=== PATIENT | female | born 1945 | race Hispanic/Latino ===

== ENCOUNTER 2016-10-11 15:08 | Inpatient (IN) | payer MEDICARE, OTHER ==
[2016-10-11 15:57] LABS: BASO # 0.1 K/uL (0.0-0.2); BASO % 0.7 % (0.0-2.0); EOS # 0.1 K/uL (0.0-0.7); EOS % 0.6 % (0.0-4.0); LYMPH # 0.9 K/uL (1.0-4.3); LYMPH % 5.6 % (20.0-40.0); MEAN CELL VOLUME 77.5 fl (81.0-99.0); MEAN CORPUSCULAR HEMOGLOBIN 24.1 pg (27.0-31.0); MEAN CORPUSCULAR HGB CONC 31.1 g/dL (33.0-37.0); MEAN PLATELET VOLUME 8.6 fl (7.2-11.7); MONO # 1.4 K/uL (0.0-0.8); MONO % 9.2 % (0.0-10.0); NEUT # 12.9 K/uL (1.8-7.0); NEUT % 83.9 % (50.0-75.0); PLATELET COUNT 316 K/uL (130-400); RED CELL DISTRIBUTION WIDTH 22.8 % (11.5-14.5); WHITE BLOOD COUNT 15.4 K/uL (4.8-10.8)
[2016-10-11 15:57] LABS: VENOUS BLOOD GAS PCO2 48 mmHg (40-60); VENOUS BLOOD PH 7.36 (7.32-7.43)
[2016-10-11 16:08] LABS: ALB/GLOB RATIO 1.2 (1.0-2.1); ALKALINE PHOSPHATASE 86 U/L (38-126); ALT/SGPT 27 U/L (9-52); AST/SGOT 24 U/L (14-36); BILIRUBIN,TOTAL 0.7 mg/dl (0.2-1.3); BLOOD UREA NITROGEN 17 mg/dl (7-17); CALCIUM 9.4 mg/dL (8.4-10.2); CARBON DIOXIDE 23 mmol/L (22-30); CHLORIDE 104 mmol/L (98-107); GFR AFRICAN-AMERICAN 49; GLUCOSE,RANDOM 114 mg/dL (65-105); MAGNESIUM 1.7 MG/DL (1.6-2.3); PHOSPHOROUS 3.4 mg/dl (2.5-4.5); SODIUM 137 mmol/l (132-148); TOTAL PROTEIN 7.3 G/DL (6.3-8.2)
[2016-10-11 16:09] LABS: POTASSIUM 3.8 MMOL/L (3.6-5.0)
--- NOTE | 2016-10-11 16:10 | ED PDOC ---
HPI: Female Pain Time Seen by Provider: 10/11/16 15:29 Chief Complaint (Nursing): Female Genitourinary Chief Complaint (Provider): Female Genitourinary History Per: Patient History/Exam Limitations: no limitations Onset/Duration Of Symptoms: Days (x1) Current Symptoms Are (Timing): Still Present Additional Complaint(s): Olga Neff is a 71 year old female who presents to the emergency department for an evaluation of genital bleed after she noted blood on the toilet associated with fever, suprapubic pain, malaise, fatigue, dysuria, black stool, and constipation ongoing since yesterday. Denied any chills, frequency, rectal bleed, nausea, vomiting, diarrhea or taking medication for symptoms relief. PMD: rPaful Meyer MD Past Medical History Reviewed: Historical Data, Nursing Documentation, Vital Signs Vital Signs: Last Vital Signs Temp 101.5 F H 10/11/16 15:16 Pulse 108 H 10/11/16 15:16 Resp 16 10/11/16 15:16 BP 157/75 H 10/11/16 15:16 Pulse Ox 98 10/11/16 15:16 - Medical History PMH: Anemia, Anxiety, Arthritis, Atrial Fibrillation, Back Problems (chronic), CHF, HTN, Kidney Stones, Chronic Kidney Disease, Rheumatoid Arthritis Denies: Diabetes, Hepatitis, HIV, Seizures, Sexually Transmitted Disease Other PMH: glycoma; sciatica - Surgical History Surgical History: Cholecystectomy, Hernia Repair, Other surgeries: partial hysterectomy; cervial cancer - Family History Family History: States: Diabetes, Hypertension - Social History Current smoker - smoking cessation education provided: No Alcohol: None Drugs: Denies - Home Medications Home Medications: Ambulatory Orders Medication Instructions Recorded oxyCODONE [oxyCODONE Immediate 30 mg PO Q8H PRN 03/21/14 Release Tab] Alprazolam [Xanax] 0.5 mg PO Q8H 04/16/16 Calcium Carbonate/Vitamin D3 1 tab PO BID 04/16/16 [Oysco D Tablet] Citalopram Hydrobromide [Celexa] 10 mg PO DAILY 04/16/16 Edoxaban Tosylate [Savaysa] 60 mg PO DAILY 04/16/16 Latanoprost [Xalatan] 1 drop EACHEYE HS 04/16/16 Metoprolol Tartrate [Lopressor] 100 mg PO Q12H 04/16/16 Morphine Sulfate [Morphine Sulfate 30 mg PO Q12H 04/16/16 ER] Sulindac 200 mg PO BID 04/16/16 Timolol 0.5% Ophth [Timoptic 0.5% 1 drop EACHEYE BID 04/16/16 Ophth Soln] Torsemide [Demadex] 20 mg PO BID 04/16/16 tiZANidine [Zanaflex] 4 mg PO BID 04/16/16 - Allergies Allergies/Adverse Reactions: Allergies Allergy/AdvReac Type Severity Reaction Status Date / Time No Known Allergies Allergy Verified 11/03/13 12:57 Review of Systems ROS Statement: Except As Marked, All Systems Reviewed And Found Negative (and as per HPI) Constitutional: Positive for: Fever, Malaise, Other (fatigue). Negative for: Chills Gastrointestinal: Positive for: Abdominal Pain (suprapubic), Constipation ( chronic issue), Melena (due to iron pills). Negative for: Nausea, Vomiting, Diarrhea, Other (rectal bleed) Genitourinary Female: Positive for: Dysuria, Hematuria. Negative for: Frequency Physical Exam - Reviewed Nursing Documentation Reviewed: Yes Vital Signs Reviewed: Yes - Physical Exam Appears: Positive for: Non-toxic, Uncomfortable (due to back pain and fever), In Acute Distress Head Exam: Positive for: ATRAUMATIC, NORMOCEPHALIC Skin: Positive for: Warm, Dry Eye Exam: Positive for: EOMI, PERRL ENT: Negative for: Pharyngeal Erythema, Tonsillar Exudate Neck: Positive for: Painless ROM, Supple Cardiovascular/Chest: Positive for: Chest Non Tender, Edema ((reported as chronic)), Tachycardia, Irregularly Irregular. Negative for: Murmur Respiratory: Positive for: Normal Breath Sounds. Negative for: Wheezing, Respiratory Distress Gastrointestinal/Abdominal: Positive for: Soft, Tenderness (mild suprapubic). Negative for: Mass, Distended, Guarding, Rebound Pelvic Exam: Positive for: External Exam Normal, Other (Health Policy Manager EDT [place]). Negative for: Active Bleeding, Blood Back: Positive for: Other (low back stiffness). Negative for: L CVA Tenderness , R CVA Tenderness Extremity: Positive for: Pedal Edema. Negative for: Deformity Lymphatic: Negative for: Adenopathy Neurologic/Psych: Positive for: Alert - Laboratory Results Result Diagrams: 10/11/16 15:50 10/11/16 15:50 - ECG O2 Sat by Pulse Oximetry: 98 (RA) Pulse Ox Interpretation: Normal Medical Decision Making Medical Decision Making: Initial Impression: Fever; Possible hematuria Differential diagnosis: Sepsis; Coagulopathy; Anemia; UTI; Cystitis; Colitis Initial Plan: * Venous blood gas shock panel * EKG * B-type natriuretic peptide * Labs * Magnesium * Phosphorous * Troponin I * PTT * PT * CXR * Tylenol 975mg PO * Blood culture * Urine culture * Urinalysis * Re-evaluation Pt reporting that she is having back pain, which she typically treats with home opiate meds. IV Morphine ordered. Labs demonstrate elevated WBC, elevated bnp. UA c/w renal calculus and/or UTI. Time: 1848 CT Abdomen and Pelvis without contrast FINDINGS: LOWER THORAX: Lung bases demonstrate mild dependent bibasilar atelectasis. Heart size mildly enlarged. LIVER: Unremarkable unenhanced appearance. GALLBLADDER AND BILE DUCTS: Gallbladder is surgically absent with multiple surgical clips in the gallbladder fossa. PANCREAS: Unremarkable unenhanced appearance. SPLEEN: Unremarkable unenhanced appearance. ADRENALS: Unremarkable unenhanced appearance. KIDNEYS AND URETERS: Right kidney: Stable subcentimeter upper pole exophytic lobulated hypodensity containing calcifications. . There is no nephrolithiasis or hydronephrosis. Left kidney: No hydronephrosis identified. Multiple cysts noted. There is moderate perinephric stranding. There is dilatation of the collecting system and renal pelvis with hyperdense fluid that demonstrates attenuation of blood. The ureters are not dilated. BLADDER: Is incompletely distended. REPRODUCTIVE: Uterus appears surgically absent. APPENDIX: Unremarkable. Normal appendix. STOMACH AND BOWEL: Moderate hiatal hernia. There is no abnormal small of large bowel dilatation. There is moderate to severe sigmoid diverticulosis without evidence of diverticulitis. PERITONEUM: No pelvic free fluid is seen. LYMPH NODES: No significant abdominal or pelvic lymphadenopathy. VASCULATURE: Abdominal Aorta is normal in caliber. BONES: Stable sclerotic focus in the right iliac bone. Degenerative changes noted of the spine. increased sclerosis of the bilateral femoral heads suggestive of avascular necrosis. OTHER FINDINGS: Small foci of air noted in the subcutaneous soft tissues of the back, right greater than left. This may be due to medication injections, correlate clinically.. IMPRESSION: Hyperdense material in the left renal collecting system and pelvis with dilatation of the renal pelvis, that likely represents blood products. Correlate clinically with history of recent intervention. If no recent intervention, then consider neoplastic process. Clinical impression: Pyelonephritis with possible renal hemorrhage Atrial fibrillation, rate controlled LISSET Meyer for hospitalization [facility] LISSET pt findings and plan of care. She feels better s/p IV meds and Tylenol in ER. Scribe Attestation: Documented by Joanne Asher, acting as a scribe for Fely Manriquez MD. Provider Scribe Attestation: All medical record entries made by the Scribe were at my direction and personally dictated by me. I have reviewed the chart and agree that the record accurately reflects my personal performance of the history, physical exam, medical decision making, and the department course for this patient. I have also personally directed, reviewed, and agree with the discharge instructions and disposition. Disposition - Clinical Impression Clinical Impression: Pyelonephritis, A-fib Counseled Patient/Family Regarding: Studies Performed, Diagnosis - Disposition Disposition Time: 16:00 Condition: FAIR - Pt Status Changed To: Hospital Disposition Of: Inpatient - Admit Certification Admit to Inpatient:: After my assessment, the patient will require hospitalization for at least two midnights. This is because of the severity of symptoms shown, intensity of services needed, and/or the medical risk in this patient being treated as an outpatient. - POA Present On Arrival: Falls Or Trauma (at risk due to back pain)
[2016-10-11] MEDS ORDERED: Morphine 4 MG/ML VIAL ONE (17:01)
[2016-10-11 17:33] LABS: EOSINOPHIL 1 % (0-7); NEUTROPHIL 80 % (42-75); TOTAL CELLS COUNTED 100
[2016-10-11 17:56] LABS: PARTIAL THROMBOPLASTIN TIME 33.1 Seconds (25.6-37.1)
--- NOTE | 2016-10-11 18:51 | CT ---
PROCEDURE: CT Abdomen and Pelvis without contrast HISTORY: suprapub pain and genital bldng h/o renal stone COMPARISON: CT abdomen pelvis 12/03/2010 TECHNIQUE: CT scan of the abdomen and pelvis was performed without IV contrast. The absence of oral contrast limits evaluation of bowel lumen. The absence of intravenous contrast limits evaluation of solid organs including the kidneys as well as blood vessels and vascular structures. Coronal and sagittal reconstructions were also acquired. Radiation dose: Total exam DLP = 1087 mGy-cm. FINDINGS: LOWER THORAX: Lung bases demonstrate mild dependent bibasilar atelectasis. Heart size mildly enlarged. LIVER: Unremarkable unenhanced appearance. GALLBLADDER AND BILE DUCTS: Gallbladder is surgically absent with multiple surgical clips in the gallbladder fossa. PANCREAS: Unremarkable unenhanced appearance. SPLEEN: Unremarkable unenhanced appearance. ADRENALS: Unremarkable unenhanced appearance. KIDNEYS AND URETERS: Right kidney: Stable subcentimeter upper pole exophytic lobulated hypodensity containing calcifications. . There is no nephrolithiasis or hydronephrosis. Left kidney: No hydronephrosis identified. Multiple cysts noted. There is moderate perinephric stranding. There is dilatation of the collecting system and renal pelvis with hyperdense fluid that demonstrates attenuation of blood. The ureters are not dilated. BLADDER: Is incompletely distended. REPRODUCTIVE: Uterus appears surgically absent. APPENDIX: Unremarkable. Normal appendix. STOMACH AND BOWEL: Moderate hiatal hernia. There is no abnormal small of large bowel dilatation. There is moderate to severe sigmoid diverticulosis without evidence of diverticulitis. PERITONEUM: No pelvic free fluid is seen. LYMPH NODES: No significant abdominal or pelvic lymphadenopathy. VASCULATURE: Abdominal Aorta is normal in caliber. BONES: Stable sclerotic focus in the right iliac bone. Degenerative changes noted of the spine. increased sclerosis of the bilateral femoral heads suggestive of avascular necrosis. OTHER FINDINGS: Small foci of air noted in the subcutaneous soft tissues of the back, right greater than left. This may be due to medication injections, correlate clinically.. IMPRESSION: Hyperdense material in the left renal collecting system and pelvis with dilatation of the renal pelvis, that likely represents blood products. Correlate clinically with history of recent intervention. If no recent intervention, then consider neoplastic process. Additional findings as above.
[2016-10-11 18:56] LABS: RBC URINE 1074 /hpf (0-3); URINE BACTERIA OCC (<OCC); URINE BILIRUBIN NEGATIVE (NEGATIVE); URINE BLOOD LARGE (NEGATIVE); URINE COLOR AMBER (YELLOW); URINE GLUCOSE (UA) NEG (Normal); URINE KETONE NEGATIVE (NEGATIVE); URINE LEUKOCYTE ESTERASE SMALL Leu/uL (Negative); URINE PROTEIN 100 mg/dL (NEGATIVE); URINE UROBILINOGEN 0.2-1.0 mg/dL (0.2-1.0); WBC CLUMPS MOD /hpf; WBC URINE 50 /hpf (0-5)
[2016-10-11 19:34] LABS: VENOUS BLOOD GAS BASE EXCESS -3.1 mmol/L (0.0-2.0); VENOUS BLOOD GAS PCO2 39 mmHg (40-60); VENOUS BLOOD PH 7.36 (7.32-7.43)
[2016-10-11] MEDS ORDERED: cefTRIAXone (Rocephin) 1 gm Inj ONE (19:37)
--- NOTE | 2016-10-11 20:21 | RAD ---
HISTORY: fever COMPARISON: Chest x-ray 04/18/2016 TECHNIQUE: Chest one view . FINDINGS: LUNGS: See below PLEURA: Small left pleural effusion. Underlying consolidation not excluded. CARDIOVASCULAR: Stable cardiomegaly. OSSEOUS STRUCTURES: Visualized osseous structures are unremarkable. VISUALIZED UPPER ABDOMEN: Unremarkable. OTHER FINDINGS: None. IMPRESSION: Small left pleural effusion, underlying consolidation not excluded. Stable cardiomegaly.
--- NOTE | 2016-10-11 23:46 | PCM.RRTMUL ---
<Talha Bill - Last Filed: 10/12/16 01:29> PRINT INSPECTOR Nurse Assessment - Situation PRINT INSPECTOR Responder Arrival Time:: 23:10 Location:: 6th floor Room Number:: [id number] PRINT INSPECTOR Reason for Call: Hypotension PRINT INSPECTOR Called By: RN - IV IV Inserted during PRINT INSPECTOR?: Yes IV Fluids Initiated During PRINT INSPECTOR?: Yes, 1L NS New IV Insertion Tolerance:: Excellent - Respiratory Oxygen Delivery Method:: Room Air Received Nebulizer Treatments:: No Was the Patient Ventilated with Bag/Mask 100% O2?: No Secretions Suctioned?: No Was the Patient Intubated?: No Was the Patient Placed on a Ventilator?: No - Vital Signs Blood Pressure:: 118/83 Pulse Rate:: 92 Respiratory Rate:: 16 Temperature:: 98.6 F I.Reason for PRINT INSPECTOR - A) Acute Change in Patient: (Select all that apply): Acute change in SBP below (BP 68/50) Subjective: PRINT INSPECTOR was called at 11:08PM by RN after patient found to have BP of 74/42, HR 64. Upon arrival pt was hypotensive but AAOx3, and verbalizing in full sentences with out difficulty. As per patient, she just feels little "exhausted" and got her routine 8mg Morphine earlier. pt was started on IVF NS bolus and trendelenburg position. Bedside EKG was done, showed A-fib. Patient failed to respond to initial interventions. After 15 mins BP 80/50 and pt was transferred to ICU for further evaluations. --Talha Bill, PGY-1 - A) Initial Vital Signs: Blood Pressure: 68/44 Pulse Rate: 64 Respiratory Rate: 20 Temperature: 97.7 F O2 Sat by Pulse Oximetry: 99 - B) Neurological Status (Select all that apply): Alert, Responsive, Oriented, Verbal, Follows Commands - C) Respiratory Oxygen Delivery Method: Room Air - Constitutional Appears: Well - Head Head Exam: ATRAUMATIC, NORMAL INSPECTION, NORMOCEPHALIC - Eyes Eye Exam: Normal appearance - Respiratory Exam Respiratory Exam: Clear to Ausculation Bilateral. absent: Accessory Muscle Use , Chest Wall Tenderness, Decreased Breath Sounds, Wheezes - Cardiovascular Exam Cardiovascular Exam: Irregular Rhythm - GI/Abdominal Exam GI & Abdominal Exam: Normal Bowel Sounds - Neurological Exam Neurological Exam: Alert, Awake, Oriented x3 - Extremities Exam Extremities Exam: Pedal Edema Plan - A. End of PRINT INSPECTOR Vital Signs: Blood Pressure: 80/50 Pulse Rate: 70 Respiratory Rate: 20 Temperature: 97.7 F O2 Sat by Pulse Oximetry: 99 <Cosme Bernard - Last Filed: 10/12/16 02:05> Attending/Attestation - Attestation I have personally seen and examined this patient.: No I have fully participated in the care of the patient.: No I have reviewed all pertinent clinical information, including history, physical exam and plan: No Notes (Text): 10/12/16 01:55 I saw and examined this patient Shoulder to shoulder with Dr Bill. The assessment and plan outlined represent my direct input. The patient's was having her regular vital signs taken and found to have a Blood pressure of 54/37mmHg. She had received Intravenous Morphine 8mg while in the ED for pain. A&P #. Hypotension Induced by the Opiates in patient being treated for Pyelonephritis - Patient placed in Trendelinburgh and IV Normal Saline bolus started. - Transfer patient to ICU for close monitoring because of slow response to the IV Fluids. Cosme Bernard MD
[2016-10-12] MEDS ORDERED: Sodium Chloride 0.9% 1,000 ML IV SCH ×3 (00:30→06:11)
--- NOTE | 2016-10-12 01:30 | CP.PCM.CON ---
History of Present Illness - History of Present Illness History of Present Illness: Attending: Praful Meyer MD Reason for Consult; Critical care Management Chief complaint: Lower abdominal Pain with clots/Hypotension HPI: 71 years old female with hx of chronic A Fib, Chronic back Pain, Cervical Cancer, Kidney stone and with Partial Hysterectomy, comes to the ED with genitalia bleed, noticing blood in the toilet after use. This was associated with fever, malaise, Fatigue, dysuria, suprapubic pain and Black stool for 2 days. No nausea, vomiting ,diarrhea, nor urinary frequency. In the ED the temperature was 101.5F and Heart rate [id number] with a blood pressure of 157/ 75mmHg. The patient was given Morphine 8mg IV for her pain. Rapid response was called while the patient was on the Med/Surge floor because of an incidental finding of blood pressure of 55/37mmHg. One Bolus of Normal saline started and because of slow response the patient transferred to the ICU for Close monitoring. PMH: Anemia, Anxiety, Arthritis, Chronic Atrial Fibrillation, Back Problems ( chronic),Sciatica, CHF, HTN, Kidney Stones, Chronic Kidney Disease, Rheumatoid Arthritis, Glaucoma, Cervical Cancer PSH: Cholecystectomy, Hernia Repair, , partial hysterectomy; SH: No Smoking; No Alcohol; No Drugs FH: DM: HTN Allergies: NKDA - Review of Systems - Constitutional Constitutional: Fever, Malaise. absent: Headache - EENT Eyes: Requires Corrective Lenses. absent: Diplopia, Floaters, Photophobia, Sees Flashes Ears: absent: Decreased Hearing, Ear Discharge, Ear Pain, Tinnitus Nose/Mouth/Throat: absent: Epistaxis, Nasal Congestion, Sore Throat - Cardiovascular Cardiovascular: Leg Edema. absent: Chest Pain - Respiratory Respiratory: absent: Cough, Wheezing, Stridor, Chest Congestion - Gastrointestinal Gastrointestinal: Abdominal Pain, Melena, Nausea. absent: Vomiting - Genitourinary Genitourinary: Hematuria, Urinary Frequency. absent: Dysuria - Menstruation Menstruation: S/P Hysterectomy - Musculoskeletal Musculoskeletal: Back Pain, Stiffness - Integumentary Integumentary: Swelling. absent: Pruritus, Rash, Skin Ulcer, Sores, Striae - Neurological Neurological: absent: Confusion, Focal Weakness, Tremor, Weakness - Psychiatric Psychiatric: absent: Anxiety, Depression, Panic Attacks - Endocrine Endocrine: absent: Palpitations, Polydipsia, Polyphagia, Polyuria - Hematologic/Lymphatic Hematologic: absent: Easy Bleeding, Easy Bruising Past Patient History - Infectious Disease Hx of Infectious Diseases: None - Past Medical History & Family History Past Medical History?: Yes - Past Social History Smoking Status: Never Smoked Chewing Tobacco Use: No Cigar Use: No Alcohol: None Drugs: Denies Home Situation {Lives}: With Family - CARDIAC Hx Atrial Fibrillation: Yes Hx Congestive Heart Failure: Yes Hx Hypertension: Yes - PULMONARY Hx Respiratory Disorders: No Hx Tuberculosis: No - NEUROLOGICAL Hx Seizures: No - HEENT Hx HEENT Problems: Yes Hx Glaucoma: Yes - RENAL Hx Chronic Kidney Disease: Yes Hx Kidney Stones: Yes - ENDOCRINE/METABOLIC Hx Endocrine Disorders: No - HEMATOLOGICAL/ONCOLOGICAL Hx Anemia: Yes Hx Human Immunodeficiency Virus (HIV): No - INTEGUMENTARY Hx Dermatological Problems: No - MUSCULOSKELETAL/RHEUMATOLOGICAL Hx Arthritis: Yes Hx Back Pain: Yes Hx Rheumatoid Arthritis: Yes - GASTROINTESTINAL Hx Gastrointestinal Disorders: Yes Hx Ulcer: Yes - GENITOURINARY/GYNECOLOGICAL Hx Sexually Transmitted Disorders: No - PSYCHIATRIC Hx Anxiety: Yes - SURGICAL HISTORY Hx Section: Yes Hx Cholecystectomy: Yes Hx Herniorrhaphy: Yes Hx Hysterectomy: Yes (Patial) - ANESTHESIA Hx Anesthesia: Yes Hx Anesthesia Reactions: No Hx Malignant Hyperthermia: No Has any member of the family had a problem w/ anesthesia?: No Meds Allergies/Adverse Reactions: Allergies Allergy/AdvReac Type Severity Reaction Status Date / Time No Known Allergies Allergy Verified 11/03/13 12:57 - Medications Medications: Current Medications Acetaminophen (Tylenol 325mg Tab) 975 mg PO ONCE PRN PRN Reason: Fever >100.4 F Citalopram Hydrobromide (Celexa) 10 mg PO DAILY [facility] Sodium Chloride (Sodium Chloride 0.9%) 1,000 mls @ 150 mls/hr IV .Q6H40M [facility] Stop: 10/13/16 00:21 Last Admin: 10/12/16 00:28 Dose: 150 mls/hr Latanoprost (Xalatan Opht) 1 drop OD HS [facility] Metoprolol Tartrate (Lopressor) 100 mg PO Q12H [facility] Timolol Maleate (Timoptic 0.5% Ophth Soln) 1 drop OD BID [facility] Physical Exam - Constitutional Appears: No Acute Distress - Head Exam Head Exam: ATRAUMATIC, NORMAL INSPECTION, NORMOCEPHALIC - Eye Exam Eye Exam: EOMI, Normal appearance Pupil Exam: Fixed, Irregular, NORMAL ACCOMODATION, PERRL - ENT Exam ENT Exam: Mucous Membranes Moist, Normal Exam, Normal External Ear Exam, Normal Oropharynx - Neck Exam Neck exam: Positive for: Full Rom, Normal Inspection. Negative for: Tenderness - Respiratory Exam Respiratory Exam: Clear to Auscultation Bilateral. absent: Rales, Rhonchi, Wheezes - Cardiovascular Exam Cardiovascular Exam: Irregular Rhythm, +S1, +S2. absent: Gallop - GI/Abdominal Exam Additional comments: Obese, Soft, +ve bowel sounds, Non tender , no guarding, No rebound tenderness - Rectal Exam Rectal Exam: Deferred - Extremities Exam Extremities exam: Positive for: pedal edema - Back Exam Back exam: NORMAL INSPECTION. absent: CVA tenderness (L), CVA tenderness (R) - Neurological Exam Neurological exam: Alert, CN II-XII Intact, Oriented x3, Reflexes Normal - Psychiatric Exam Psychiatric exam: Normal Affect, Normal Mood - Skin Skin Exam: Dry, Intact, Normal Color, Warm Results - Vital Signs Recent Vital Signs: Last Vital Signs Temp 97.7 F 10/12/16 01:28 Pulse 70 10/12/16 01:28 Resp 20 10/12/16 01:28 BP 80/50 L 10/12/16 01:28 Pulse Ox 95 10/12/16 01:00 - Labs Result Diagrams: 10/12/16 04:20 10/12/16 04:20 Labs: Laboratory Results - last 24 hr 10/11/16 10/11/16 10/11/16 17:00 18:26 19:29 PT 14.0 H INR 1.4 H APTT 33.1 pO2 48 VBG pH 7.36 VBG pCO2 39 L VBG HCO3 22.1 VBG Total CO2 23.2 VBG O2 Sat (Calc) 84.3 H VBG Base Excess -3.1 L VBG Potassium 3.5 L Sodium 135.0 Chloride 106.0 Glucose 96 Lactate 0.9 FiO2 21.0 Venous Blood Potassium 3.5 L Urine Color Evelia Urine Clarity Turbid Urine pH 5.0 Ur Specific Noble 1.025 Urine Protein 100 Urine Glucose (UA) Neg Urine Ketones Negative Urine Blood Large Urine Nitrate Negative Urine Bilirubin Negative Urine Urobilinogen 0.2-1.0 Ur Leukocyte Esterase Small Urine RBC (Auto) 1074 H Urine WBC Clumps (Auto) Mod H Urine Microscopic WBC 50 H Ur Squamous Epith Cells 3 Urine Bacteria Occ H - EKG Data EKG comments: A Fib with rapid response 104.min - Imaging and Cardiology Chest x-ray Status: Image reviewed by me, Report reviewed by me Additional comment: Cardiomegaly. Small left pleural effusion, underlying consolidation not excluded. CT scan - abdomen Status: Report reviewed by me Additional comment: IMPRESSION: Hyperdense material in the left renal collecting system and pelvis with dilatation of the renal pelvis, that likely represents blood products. Correlate clinically with history of recent intervention. If no recent intervention, then consider neoplastic process. Assessment & Plan - Assessment and Plan (Free Text) Assessment: # Hypotension #. SIRS #.Chronic A Fib #. Chronic CHF #. Hx of Cervical Ca Plan: 1 years old female with hx of chronic A Fib, Chronic back Pain, Cervical Cancer , Kidney stone and with Partial Hysterectomy, comes to the ED with genitalia bleed, noticing blood in the toilet after use. This was associated with fever, malaise, Fatigue, dysuria, suprapubic pain and Black stool for 2 days. In the ED patient was given Morphine 8mg IV for her pain. Rapid response was called while the patient was on the Med/Surge floor because of an incidental finding of blood pressure of 55/37mmHg. One Bolus of Normal saline started and because of slow response the patient transferred to the ICU for Close monitoring. # Hypotension secondary to the opiates that the patient received in the ED -Continue IV Fluids. educe to 100mls/hr - Patient may need pressor if BP falls despite IV Fluids #. Genitalia bleed probably from the left kidney, Patient on Edaxaban which could cause bleeding - Hold Edaxaban - Follow Hb - If Hb drops significantly indicating severe bleed, pte may need Factor 4 PCC - Will need consult with Urology #. SIRS. Temperature of 101.5 and HR of 108 and a WBC of 15.5: - ID Consult - follow Blood Culture and /urine Cultures - Continue Zosyn #.Chronic A Fib rate controlled -Consider Cardiac consult - Continue metoprolol - Hold Edaxaban #. Chronic CHF - Metoprolol - Hold Demadex #. Hx of Cervical Ca - Not on treatment #. DVT Prophylaxis with SCD #. Code Status: Full - Date & Time Date: 10/12/16 Time: 01:30
[2016-10-12] MEDS ORDERED: oxyCODONE 10 mg Immediate Release Tab PO PRN ×2 (03:31→03:33)
[2016-10-12] MEDS: Piperacillin/Tazobact 3.375 GM in Sodium Chloride 0.9% 100 ML IVPB SCH ×4 (04:37→21:11)
[2016-10-12 05:16] LABS: BASO % 0.3 % (0.0-2.0); EOS # 0.1 K/uL (0.0-0.7); EOS % 0.8 % (0.0-4.0); HEMATOCRIT 33.3 % (34.0-47.0); LYMPH # 0.8 K/uL (1.0-4.3); LYMPH % 6.4 % (20.0-40.0); MEAN CELL VOLUME 78.7 fl (81.0-99.0); MEAN CORPUSCULAR HEMOGLOBIN 23.9 pg (27.0-31.0); MEAN CORPUSCULAR HGB CONC 30.4 g/dL (33.0-37.0); MEAN PLATELET VOLUME 8.4 fl (7.2-11.7); MONO # 0.9 K/uL (0.0-0.8); MONO % 6.9 % (0.0-10.0); NEUT # 10.6 K/uL (1.8-7.0); NEUT % 85.6 % (50.0-75.0); RED CELL DISTRIBUTION WIDTH 22.7 % (11.5-14.5); WHITE BLOOD COUNT 12.3 K/uL (4.8-10.8)
[2016-10-12 05:23] LABS: CALCIUM 8.6 mg/dL (8.4-10.2); POTASSIUM 4.4 MMOL/L (3.6-5.0)
--- NOTE | 2016-10-12 08:33 | CP.CCUPN ---
<Cindy Wesley - Last Filed: 10/12/16 14:20> CCU Subjective - Physician Review Subjective (Free Text): 10/12/16 7:30 am Patient seen and examined bedside AAOx3, breathing room air. Patient reports feeling better. she reports dysuria and occs suprapubic pain. Patient was transferred yesterday to ICU s/p [employer] for hypotension. she denies abdominal pain in the morning, nausea, vomiting, genital bleeding. Voids frequent with hematuria present. 10/12/16 11:15 CCU Objective - Vital Signs / Intake & Output Vital Signs (Last 4 hours): Vital Signs Temp Pulse Resp BP Pulse Ox 10/12/16 08:00 98.8 F 99 H 19 153/85 H 96 10/12/16 07:14 98.4 F 10/12/16 06:14 100.9 F H 10/12/16 06:00 100.9 F H 94 H 19 148/87 97 Intake and Output (Last 8hrs): Intake & Output 10/11/16 10/12/16 10/12/16 22:59 06:59 14:59 Intake Total 1970 150 Balance 1970 150 Weight 238 lb 3.2 oz Intake: IV 1850 150 Oral 120 Other: # Voids Urine, Voided 1 1 - Physical Exam Head: Positive for: Atraumatic, Normocephalic Conjunctiva: Positive for: Normal Mouth: Positive for: Moist Mucous Membranes Respiratory/Chest: Positive for: Clear to Auscultation. Negative for: Wheezes, Rales Cardiovascular: Positive for: Irregular Rhythm. Negative for: Murmurs Abdomen: Positive for: Normal Bowel Sounds. Negative for: Tenderness, Distention, Rebound, Guarding Genitourinary/Pelvic Exam: Positive for: Normal External Genitalia, Other (SSE: No genital active bleeding, no vaginal bleeding, no cervix s/p hysterectomy. digital exam normal). Negative for: Vaginal Discharge, Vaginal Bleeding, Vaginal Lesions, Adenexal Tenderness Upper Extremity: Positive for: Normal Inspection Lower Extremity: Positive for: Swelling (pedal edema 2+). Negative for: CALF TENDERNESS Neurological: Positive for: Speech Normal, Motor Func Grossly Intact Skin: Positive for: Warm, Normal Color Psychiatric: Positive for: Alert, Oriented x 3, Normal Mood - Medications Active Medications: Active Medications Generic Name Dose Route Start Last Admin Trade Name Freq PRN Reason Stop Dose Admin Acetaminophen 975 mg 10/12/16 00:18 Tylenol 325mg Tab PO ONCE PRN Fever >100.4 F Acetaminophen 650 mg 10/12/16 06:10 10/12/16 06:14 Tylenol 325mg Tab PO 650 mg Q4 PRN Administration Fever >100.4 F Citalopram Hydrobromide 10 mg 10/12/16 09:00 Celexa PO DAILY SZUANNA Piperacillin Sod/Tazobactam 100 mls @ 100 mls/hr 10/12/16 04:00 10/12/16 04: 37 Sod 3.375 gm/ Sodium Chloride IVPB 100 mls/hr Q6 SUZANNA Administration Sodium Chloride 1,000 mls @ 75 mls/hr 10/12/16 06:11 10/12/16 06:16 Sodium Chloride 0.9% IV 10/13/16 00:21 75 mls/hr .[id number] SUZANNA Administration Latanoprost 1 drop 10/12/16 22:00 Xalatan Opht OD HS COUNTS INCLUDE 234 BEDS AT THE [facility] Metoprolol Tartrate 100 mg 10/12/16 11:45 Lopressor PO Q12H COUNTS INCLUDE 234 BEDS AT THE [facility] Morphine Sulfate 2 mg 10/12/16 03:25 Morphine IVP Q4 PRN Pain, moderate (4-7) Oxycodone HCl 20 mg 10/12/16 09:00 Oxycontin Extended Release Tab PO Q12 COUNTS INCLUDE 234 BEDS AT THE [facility] Oxycodone HCl 5 mg 10/12/16 03:33 Oxycodone Immediate Release Tab PO Q6 PRN Pain, moderate (4-7) Oxycodone HCl 10 mg 10/12/16 04:15 Oxycodone Immediate Release Tab PO Q6 PRN Pain, severe (8-10) Timolol Maleate 1 drop 10/12/16 09:00 Timoptic 0.5% Ophth Soln OD BID SUZANNA - Patient Studies Lab Studies: Lab Studies 10/12/16 10/12/16 10/12/16 Range/Units 06:21 04:20 04:20 WBC 12.3 H (4.8-10.8) K/uL RBC 4.23 (3.80-5.20) Mil/uL Hgb 10.1 L (12.0-16.0) g/dL Hct 33.3 L (34.0-47.0) % MCV 78.7 L (81.0-99.0) fl MCH 23.9 L (27.0-31.0) pg MCHC 30.4 L (33.0-37.0) g/dL RDW 22.7 H (11.5-14.5) % Plt Count 254 (130-400) K/uL MPV 8.4 (7.2-11.7) fl Neut % (Auto) 85.6 H (50.0-75.0) % Lymph % (Auto) 6.4 L (20.0-40.0) % [place] % (Auto) 6.9 (0.0-10.0) % Eos % (Auto) 0.8 (0.0-4.0) % Baso % (Auto) 0.3 (0.0-2.0) % Neut # 10.6 H (1.8-7.0) K/uL Lymph # 0.8 L (1.0-4.3) K/uL [place] # 0.9 H (0.0-0.8) K/uL Eos # 0.1 (0.0-0.7) K/uL Baso # 0.0 (0.0-0.2) K/uL PT (9.8-13.1) Seconds INR (0.9-1.2) APTT (25.6-37.1) Seconds pO2 (30-55) mm/Hg VBG pH (7.32-7.43) VBG pCO2 (40-60) mmHg VBG HCO3 mmol/L VBG Total CO2 (22-28) mmol/L VBG O2 Sat (Calc) (40-65) % VBG Base Excess (0.0-2.0) mmol/L VBG Potassium (3.6-5.2) mmol/L Sodium 138 (132-148) mmol/L Chloride 106 (98-107) mmol/L Glucose (65-105) mg/dL Lactate (0.7-2.1) mmol/L FiO2 % Potassium 4.4 (3.6-5.0) MMOL/L Carbon Dioxide 26 (22-30) mmol/L Anion Gap 11 (10-20) BUN 19 H (7-17) mg/dl Creatinine 1.5 H (0.7-1.2) mg/dL Est GFR ( Amer) 42 Est GFR (Non-Af Amer) 34 POC Glucose (mg/dL) 80 (65-110) mg/dL Random Glucose 96 (65-105) mg/dL Calcium 8.6 (8.4-10.2) mg/dL Venous Blood Potassium (3.6-5.2) mmol/L Urine Color (YELLOW) Urine Clarity (Clear) Urine pH (5.0-8.0) Ur Specific [place] (1.003-1.030) Urine Protein (NEGATIVE) mg/dL Urine Glucose (UA) (Normal) mg/dL Urine Ketones (NEGATIVE) mg/dL Urine Blood (NEGATIVE) Urine Nitrate (NEGATIVE) Urine Bilirubin (NEGATIVE) Urine Urobilinogen (0.2-1.0) mg/dL Ur Leukocyte Esterase (Negative) [place]/uL Urine RBC (Auto) (0-3) /hpf Urine WBC Clumps (Auto) (NONE) /hpf Urine Microscopic WBC (0-5) /hpf Ur Squamous Epith Cells (0-5) /hpf Urine Bacteria (<OCC) 10/11/16 10/11/16 10/11/16 Range/Units 19:29 18:26 17:00 WBC (4.8-10.8) K/uL RBC (3.80-5.20) Mil/uL Hgb (12.0-16.0) g/dL Hct (34.0-47.0) % MCV (81.0-99.0) fl MCH (27.0-31.0) pg MCHC (33.0-37.0) g/dL RDW (11.5-14.5) % Plt Count (130-400) K/uL MPV (7.2-11.7) fl Neut % (Auto) (50.0-75.0) % Lymph % (Auto) (20.0-40.0) % [place] % (Auto) (0.0-10.0) % Eos % (Auto) (0.0-4.0) % Baso % (Auto) (0.0-2.0) % Neut # (1.8-7.0) K/uL Lymph # (1.0-4.3) K/uL [place] # (0.0-0.8) K/uL Eos # (0.0-0.7) K/uL Baso # (0.0-0.2) K/uL PT 14.0 H (9.8-13.1) Seconds INR 1.4 H (0.9-1.2) APTT 33.1 (25.6-37.1) Seconds pO2 48 (30-55) mm/Hg VBG pH 7.36 (7.32-7.43) VBG pCO2 39 L (40-60) mmHg VBG HCO3 22.1 mmol/L VBG Total CO2 23.2 (22-28) mmol/L VBG O2 Sat (Calc) 84.3 H (40-65) % VBG Base Excess -3.1 L (0.0-2.0) mmol/L VBG Potassium 3.5 L (3.6-5.2) mmol/L Sodium 135.0 (132-148) mmol/L Chloride 106.0 (98-107) mmol/L Glucose 96 (65-105) mg/dL Lactate 0.9 (0.7-2.1) mmol/L FiO2 21.0 % Potassium (3.6-5.0) MMOL/L Carbon Dioxide (22-30) mmol/L Anion Gap (10-20) BUN (7-17) mg/dl Creatinine (0.7-1.2) mg/dL Est GFR ( Amer) Est GFR (Non-Af Amer) POC Glucose (mg/dL) (65-110) mg/dL Random Glucose (65-105) mg/dL Calcium (8.4-10.2) mg/dL Venous Blood Potassium 3.5 L (3.6-5.2) mmol/L Urine Color Evelia (YELLOW) Urine Clarity Turbid (Clear) Urine pH 5.0 (5.0-8.0) Ur Specific [place] 1.025 (1.003-1.030) Urine Protein 100 (NEGATIVE) mg/dL Urine Glucose (UA) Neg (Normal) mg/dL Urine Ketones Negative (NEGATIVE) mg/dL Urine Blood Large (NEGATIVE) Urine Nitrate Negative (NEGATIVE) Urine Bilirubin Negative (NEGATIVE) Urine Urobilinogen 0.2-1.0 (0.2-1.0) mg/dL Ur Leukocyte Esterase Small (Negative) [place]/uL Urine RBC (Auto) 1074 H (0-3) /hpf Urine WBC Clumps (Auto) Mod H (NONE) /hpf Urine Microscopic WBC 50 H (0-5) /hpf Ur Squamous Epith Cells 3 (0-5) /hpf Urine Bacteria Occ H (<OCC) Laboratory Results - last 24 hr 10/11/16 10/11/16 10/11/16 17:00 18:26 19:29 WBC RBC Hgb Hct MCV MCH MCHC RDW Plt Count MPV Neut % (Auto) Lymph % (Auto) [place] % (Auto) Eos % (Auto) Baso % (Auto) Neut # Lymph # [place] # Eos # Baso # PT 14.0 H INR 1.4 H APTT 33.1 pO2 48 VBG pH 7.36 VBG pCO2 39 L VBG HCO3 22.1 VBG Total CO2 23.2 VBG O2 Sat (Calc) 84.3 H VBG Base Excess -3.1 L VBG Potassium 3.5 L Sodium 135.0 Chloride 106.0 Glucose 96 Lactate 0.9 FiO2 21.0 Potassium Carbon Dioxide Anion Gap BUN Creatinine Est GFR ( Amer) Est GFR (Non-Af Amer) POC Glucose (mg/dL) Random Glucose Calcium Venous Blood Potassium 3.5 L Urine Color Evelia Urine Clarity Turbid Urine pH 5.0 Ur Specific [place] 1.025 Urine Protein 100 Urine Glucose (UA) Neg Urine Ketones Negative Urine Blood Large Urine Nitrate Negative Urine Bilirubin Negative Urine Urobilinogen 0.2-1.0 Ur Leukocyte Esterase Small Urine RBC (Auto) 1074 H Urine WBC Clumps (Auto) Mod H Urine Microscopic WBC 50 H Ur Squamous Epith Cells 3 Urine Bacteria Occ H 10/12/16 10/12/16 10/12/16 04:20 04:20 06:21 WBC 12.3 H RBC 4.23 Hgb 10.1 L Hct 33.3 L MCV 78.7 L MCH 23.9 L MCHC 30.4 L RDW 22.7 H Plt Count 254 MPV 8.4 Neut % (Auto) 85.6 H Lymph % (Auto) 6.4 L [place] % (Auto) 6.9 Eos % (Auto) 0.8 Baso % (Auto) 0.3 Neut # 10.6 H Lymph # 0.8 L [place] # 0.9 H Eos # 0.1 Baso # 0.0 PT INR APTT pO2 VBG pH VBG pCO2 VBG HCO3 VBG Total CO2 VBG O2 Sat (Calc) VBG Base Excess VBG Potassium Sodium 138 Chloride 106 Glucose Lactate FiO2 Potassium 4.4 Carbon Dioxide 26 Anion Gap 11 BUN 19 H Creatinine 1.5 H Est GFR ( Amer) 42 Est GFR (Non-Af Amer) 34 POC Glucose (mg/dL) 80 Random Glucose 96 Calcium 8.6 Venous Blood Potassium Urine Color Urine Clarity Urine pH Ur Specific [place] Urine Protein Urine Glucose (UA) Urine Ketones Urine Blood Urine Nitrate Urine Bilirubin Urine Urobilinogen Ur Leukocyte Esterase Urine RBC (Auto) Urine WBC Clumps (Auto) Urine Microscopic WBC Ur Squamous Epith Cells Urine Bacteria Fingerstick Blood Sugar Results: 80 Review of Systems - Cardiovascular Cardiovascular: As Per HPI - Respiratory Respiratory: As Per HPI - Gastrointestinal Gastrointestinal: As Per HPI - Genitourinary Genitourinary: Dysuria Critical Care Progress Note - Nutrition Nutrition: Nutrition Category Date Time Status Cardiac [Heart Healthy Diet] [DIET] Diets 10/12/16 Breakfast Active Assessment/Plan - Assessment and Plan (Free Text) Plan: 71 yo ,f, PMhx/o chronic A Fib, Chronic back Pain, Cervical Cancer s/p partial hysterectomy "as per patient" presented to ED c/o hematuria,dysuria,fever, suprapubic pain.Patient admitted to floor for pyelonephritis and hematuria and last night after [employer] for Hypotension, patient was transferred to ICU Assessment/Plan 1) Pyelonephritis -CT abd w/o contrast: Hyperdense material in the left renal collecting system and pelvis with dilatation of the renal pelvis, that likely represents blood products. If no recent intervention, then consider neoplastic process. -Iv fluids - c/w Zosyn -Urologist consult suggested -Id consult appreciated: c/w antibiotic and wait for cultures 2) Sepsis SIRS + source of infection(pyelonephritis) -T 101.5, HR:108 WBC:15.5 -c/w IV fluids -c/w antibiotics -Lactic acid 1.2 trending down 0.9 3) Hypotension -resolved secondary to meds versus severe sepsis -pt on Torsenmide 20 mg. -given morphine in ER 8 mg -hypotension resolved after IV fluids -BP and HR stable today -clinically not septic, hemodynamically stable 4) CKD stage 3B -GFR: 34 GFR:49 03/2016 -Bun/Cr 19/1.5 5) chronic Atrial Fibrilation -Metoprolol Tartrate 100 mg BID -Edoxaban 60 mg PO hold due to hematuria 6) CHF -controlled -c/w Metoprolol and Torsemide 7) Hx/o Cervix CA -At age of 41 had partial hysterectomy -[employer] consult suggested 8) DVT prophylaxis -SCD <MarcyfTorrey M - Last Filed: 10/12/16 16:44> CCU Objective - Vital Signs / Intake & Output Vital Signs (Last 4 hours): Vital Signs Temp Pulse Resp BP Pulse Ox 10/12/16 14:00 89 14 133/73 95 10/12/16 13:42 99 H 126/65 10/12/16 12:00 98.9 F 109 H 16 130/83 95 Intake and Output (Last 8hrs): Intake & Output 10/12/16 10/12/16 10/12/16 06:59 14:59 22:59 Intake Total 1970 600 Balance 1970 600 Weight 238 lb 3.2 oz Intake: IV 1850 600 Oral 120 Other: # Voids Urine, Voided 1 1 - Medications Active Medications: Active Medications Generic Name Dose Route Start Last Admin Trade Name Freq PRN Reason Stop Dose Admin Acetaminophen 975 mg 10/12/16 00:18 Tylenol 325mg Tab PO ONCE PRN Fever >100.4 F Acetaminophen 650 mg 10/12/16 06:10 10/12/16 06:14 Tylenol 325mg Tab PO 650 mg Q4 PRN Administration Fever >100.4 F Citalopram Hydrobromide 10 mg 10/12/16 09:00 10/12/16 08:52 Celexa PO 10 mg DAILY SUZANNA Administration Piperacillin Sod/Tazobactam 100 mls @ 100 mls/hr 10/12/16 04:00 10/12/16 09: 00 Sod 3.375 gm/ Sodium Chloride IVPB 100 mls/hr Q6 SUZANNA Administration Sodium Chloride 1,000 mls @ 75 mls/hr 10/12/16 06:11 10/12/16 06:16 Sodium Chloride 0.9% IV 10/13/16 00:21 75 mls/hr .[id number] SUZANNA Administration Latanoprost 1 drop 10/12/16 22:00 Xalatan Opht OD HS SUZANNA Metoprolol Tartrate 100 mg 10/12/16 11:45 10/12/16 13:42 Lopressor PO 100 mg Q12H SUZANNA Administration Morphine Sulfate 2 mg 10/12/16 03:25 Morphine IVP Q4 PRN Pain, moderate (4-7) Oxycodone HCl 20 mg 10/12/16 09:00 10/12/16 08:50 Oxycontin Extended Release Tab PO 20 mg Q12 SUZANNA Administration Oxycodone HCl 5 mg 10/12/16 03:33 Oxycodone Immediate Release Tab PO Q6 PRN Pain, moderate (4-7) Oxycodone HCl 10 mg 10/12/16 04:15 Oxycodone Immediate Release Tab PO Q6 PRN Pain, severe (8-10) Timolol Maleate 1 drop 10/12/16 09:00 10/12/16 08:53 Timoptic 0.5% Ophth Soln OD 1 drop BID SUZANNA Administration - Patient Studies Lab Studies: Lab Studies 10/12/16 10/12/16 10/12/16 Range/Units 13:25 06:21 05:55 WBC (4.8-10.8) K/uL RBC (3.80-5.20) Mil/uL Hgb (12.0-16.0) g/dL Hct (34.0-47.0) % MCV (81.0-99.0) fl MCH (27.0-31.0) pg MCHC (33.0-37.0) g/dL RDW (11.5-14.5) % Plt Count (130-400) K/uL MPV (7.2-11.7) fl Neut % (Auto) (50.0-75.0) % Lymph % (Auto) (20.0-40.0) % [place] % (Auto) (0.0-10.0) % Eos % (Auto) (0.0-4.0) % Baso % (Auto) (0.0-2.0) % Neut # (1.8-7.0) K/uL Lymph # (1.0-4.3) K/uL [place] # (0.0-0.8) K/uL Eos # (0.0-0.7) K/uL Baso # (0.0-0.2) K/uL PT (9.8-13.1) Seconds INR (0.9-1.2) APTT (25.6-37.1) Seconds pO2 (30-55) mm/Hg VBG pH (7.32-7.43) VBG pCO2 (40-60) mmHg VBG HCO3 mmol/L VBG Total CO2 (22-28) mmol/L VBG O2 Sat (Calc) (40-65) % VBG Base Excess (0.0-2.0) mmol/L VBG Potassium (3.6-5.2) mmol/L Sodium (132-148) mmol/L Chloride (98-107) mmol/L Glucose (65-105) mg/dL Lactate (0.7-2.1) mmol/L FiO2 % Potassium (3.6-5.0) MMOL/L Carbon Dioxide (22-30) mmol/L Anion Gap (10-20) BUN (7-17) mg/dl Creatinine (0.7-1.2) mg/dL Est GFR ( Amer) Est GFR (Non-Af Amer) POC Glucose (mg/dL) 146 H 80 (65-110) mg/dL Random Glucose (65-105) mg/dL Calcium (8.4-10.2) mg/dL Procalcitonin 0.19 (0.19-0.49) NG/ML Venous Blood Potassium (3.6-5.2) mmol/L Urine Color (YELLOW) Urine Clarity (Clear) Urine pH (5.0-8.0) Ur Specific [place] (1.003-1.030) Urine Protein (NEGATIVE) mg/dL Urine Glucose (UA) (Normal) mg/dL Urine Ketones (NEGATIVE) mg/dL Urine Blood (NEGATIVE) Urine Nitrate (NEGATIVE) Urine Bilirubin (NEGATIVE) Urine Urobilinogen (0.2-1.0) mg/dL Ur Leukocyte Esterase (Negative) [place]/uL Urine RBC (Auto) (0-3) /hpf Urine WBC Clumps (Auto) (NONE) /hpf Urine Microscopic WBC (0-5) /hpf Ur Squamous Epith Cells (0-5) /hpf Urine Bacteria (<OCC) 10/12/16 10/12/16 10/11/16 Range/Units 04:20 04:20 19:29 WBC 12.3 H (4.8-10.8) K/uL RBC 4.23 (3.80-5.20) Mil/uL Hgb 10.1 L (12.0-16.0) g/dL Hct 33.3 L (34.0-47.0) % MCV 78.7 L (81.0-99.0) fl MCH 23.9 L (27.0-31.0) pg MCHC 30.4 L (33.0-37.0) g/dL RDW 22.7 H (11.5-14.5) % Plt Count 254 (130-400) K/uL MPV 8.4 (7.2-11.7) fl Neut % (Auto) 85.6 H (50.0-75.0) % Lymph % (Auto) 6.4 L (20.0-40.0) % [place] % (Auto) 6.9 (0.0-10.0) % Eos % (Auto) 0.8 (0.0-4.0) % Baso % (Auto) 0.3 (0.0-2.0) % Neut # 10.6 H (1.8-7.0) K/uL Lymph # 0.8 L (1.0-4.3) K/uL [place] # 0.9 H (0.0-0.8) K/uL Eos # 0.1 (0.0-0.7) K/uL Baso # 0.0 (0.0-0.2) K/uL PT (9.8-13.1) Seconds INR (0.9-1.2) APTT (25.6-37.1) Seconds pO2 48 (30-55) mm/Hg VBG pH 7.36 (7.32-7.43) VBG pCO2 39 L (40-60) mmHg VBG HCO3 22.1 mmol/L VBG Total CO2 23.2 (22-28) mmol/L VBG O2 Sat (Calc) 84.3 H (40-65) % VBG Base Excess -3.1 L (0.0-2.0) mmol/L VBG Potassium 3.5 L (3.6-5.2) mmol/L Sodium 138 135.0 (132-148) mmol/L Chloride 106 106.0 (98-107) mmol/L Glucose 96 (65-105) mg/dL Lactate 0.9 (0.7-2.1) mmol/L FiO2 21.0 % Potassium 4.4 (3.6-5.0) MMOL/L Carbon Dioxide 26 (22-30) mmol/L Anion Gap 11 (10-20) BUN 19 H (7-17) mg/dl Creatinine 1.5 H (0.7-1.2) mg/dL Est GFR ( Amer) 42 Est GFR (Non-Af Amer) 34 POC Glucose (mg/dL) (65-110) mg/dL Random Glucose 96 (65-105) mg/dL Calcium 8.6 (8.4-10.2) mg/dL Procalcitonin (0.19-0.49) NG/ML Venous Blood Potassium 3.5 L (3.6-5.2) mmol/L Urine Color (YELLOW) Urine Clarity (Clear) Urine pH (5.0-8.0) Ur Specific [place] (1.003-1.030) Urine Protein (NEGATIVE) mg/dL Urine Glucose (UA) (Normal) mg/dL Urine Ketones (NEGATIVE) mg/dL Urine Blood (NEGATIVE) Urine Nitrate (NEGATIVE) Urine Bilirubin (NEGATIVE) Urine Urobilinogen (0.2-1.0) mg/dL Ur Leukocyte Esterase (Negative) [place]/uL Urine RBC (Auto) (0-3) /hpf Urine WBC Clumps (Auto) (NONE) /hpf Urine Microscopic WBC (0-5) /hpf Ur Squamous Epith Cells (0-5) /hpf Urine Bacteria (<OCC) 10/11/16 10/11/16 Range/Units 18:26 17:00 WBC (4.8-10.8) K/uL RBC (3.80-5.20) Mil/uL Hgb (12.0-16.0) g/dL Hct (34.0-47.0) % MCV (81.0-99.0) fl MCH (27.0-31.0) pg MCHC (33.0-37.0) g/dL RDW (11.5-14.5) % Plt Count (130-400) K/uL MPV (7.2-11.7) fl Neut % (Auto) (50.0-75.0) % Lymph % (Auto) (20.0-40.0) % [place] % (Auto) (0.0-10.0) % Eos % (Auto) (0.0-4.0) % Baso % (Auto) (0.0-2.0) % Neut # (1.8-7.0) K/uL Lymph # (1.0-4.3) K/uL [place] # (0.0-0.8) K/uL Eos # (0.0-0.7) K/uL Baso # (0.0-0.2) K/uL PT 14.0 H (9.8-13.1) Seconds INR 1.4 H (0.9-1.2) APTT 33.1 (25.6-37.1) Seconds pO2 (30-55) mm/Hg VBG pH (7.32-7.43) VBG pCO2 (40-60) mmHg VBG HCO3 mmol/L VBG Total CO2 (22-28) mmol/L VBG O2 Sat (Calc) (40-65) % VBG Base Excess (0.0-2.0) mmol/L VBG Potassium (3.6-5.2) mmol/L Sodium (132-148) mmol/L Chloride (98-107) mmol/L Glucose (65-105) mg/dL Lactate (0.7-2.1) mmol/L FiO2 % Potassium (3.6-5.0) MMOL/L Carbon Dioxide (22-30) mmol/L Anion Gap (10-20) BUN (7-17) mg/dl Creatinine (0.7-1.2) mg/dL Est GFR ( Amer) Est GFR (Non-Af Amer) POC Glucose (mg/dL) (65-110) mg/dL Random Glucose (65-105) mg/dL Calcium (8.4-10.2) mg/dL Procalcitonin (0.19-0.49) NG/ML Venous Blood Potassium (3.6-5.2) mmol/L Urine Color Evelia (YELLOW) Urine Clarity Turbid (Clear) Urine pH 5.0 (5.0-8.0) Ur Specific [place] 1.025 (1.003-1.030) Urine Protein 100 (NEGATIVE) mg/dL Urine Glucose (UA) Neg (Normal) mg/dL Urine Ketones Negative (NEGATIVE) mg/dL Urine Blood Large (NEGATIVE) Urine Nitrate Negative (NEGATIVE) Urine Bilirubin Negative (NEGATIVE) Urine Urobilinogen 0.2-1.0 (0.2-1.0) mg/dL Ur Leukocyte Esterase Small (Negative) [place]/uL Urine RBC (Auto) 1074 H (0-3) /hpf Urine WBC Clumps (Auto) Mod H (NONE) /hpf Urine Microscopic WBC 50 H (0-5) /hpf Ur Squamous Epith Cells 3 (0-5) /hpf Urine Bacteria Occ H (<OCC) Laboratory Results - last 24 hr 10/11/16 10/11/16 10/11/16 17:00 18:26 19:29 WBC RBC Hgb Hct MCV MCH MCHC RDW Plt Count MPV Neut % (Auto) Lymph % (Auto) [place] % (Auto) Eos % (Auto) Baso % (Auto) Neut # Lymph # [place] # Eos # Baso # PT 14.0 H INR 1.4 H APTT 33.1 pO2 48 VBG pH 7.36 VBG pCO2 39 L VBG HCO3 22.1 VBG Total CO2 23.2 VBG O2 Sat (Calc) 84.3 H VBG Base Excess -3.1 L VBG Potassium 3.5 L Sodium 135.0 Chloride 106.0 Glucose 96 Lactate 0.9 FiO2 21.0 Potassium Carbon Dioxide Anion Gap BUN Creatinine Est GFR ( Amer) Est GFR (Non-Af Amer) POC Glucose (mg/dL) Random Glucose Calcium Procalcitonin Venous Blood Potassium 3.5 L Urine Color Evelia Urine Clarity Turbid Urine pH 5.0 Ur Specific [place] 1.025 Urine Protein 100 Urine Glucose (UA) Neg Urine Ketones Negative Urine Blood Large Urine Nitrate Negative Urine Bilirubin Negative Urine Urobilinogen 0.2-1.0 Ur Leukocyte Esterase Small Urine RBC (Auto) 1074 H Urine WBC Clumps (Auto) Mod H Urine Microscopic WBC 50 H Ur Squamous Epith Cells 3 Urine Bacteria Occ H 10/12/16 10/12/16 10/12/16 04:20 04:20 05:55 WBC 12.3 H RBC 4.23 Hgb 10.1 L Hct 33.3 L MCV 78.7 L MCH 23.9 L MCHC 30.4 L RDW 22.7 H Plt Count 254 MPV 8.4 Neut % (Auto) 85.6 H Lymph % (Auto) 6.4 L [place] % (Auto) 6.9 Eos % (Auto) 0.8 Baso % (Auto) 0.3 Neut # 10.6 H Lymph # 0.8 L [place] # 0.9 H Eos # 0.1 Baso # 0.0 PT INR APTT pO2 VBG pH VBG pCO2 VBG HCO3 VBG Total CO2 VBG O2 Sat (Calc) VBG Base Excess VBG Potassium Sodium 138 Chloride 106 Glucose Lactate FiO2 Potassium 4.4 Carbon Dioxide 26 Anion Gap 11 BUN 19 H Creatinine 1.5 H Est GFR ( Amer) 42 Est GFR (Non-Af Amer) 34 POC Glucose (mg/dL) Random Glucose 96 Calcium 8.6 Procalcitonin 0.19 Venous Blood Potassium Urine Color Urine Clarity Urine pH Ur Specific [place] Urine Protein Urine Glucose (UA) Urine Ketones Urine Blood Urine Nitrate Urine Bilirubin Urine Urobilinogen Ur Leukocyte Esterase Urine RBC (Auto) Urine WBC Clumps (Auto) Urine Microscopic WBC Ur Squamous Epith Cells Urine Bacteria 10/12/16 10/12/16 06:21 13:25 WBC RBC Hgb Hct MCV MCH MCHC RDW Plt Count MPV Neut % (Auto) Lymph % (Auto) [place] % (Auto) Eos % (Auto) Baso % (Auto) Neut # Lymph # [place] # Eos # Baso # PT INR APTT pO2 VBG pH VBG pCO2 VBG HCO3 VBG Total CO2 VBG O2 Sat (Calc) VBG Base Excess VBG Potassium Sodium Chloride Glucose Lactate FiO2 Potassium Carbon Dioxide Anion Gap BUN Creatinine Est GFR ( Amer) Est GFR (Non-Af Amer) POC Glucose (mg/dL) 80 146 H Random Glucose Calcium Procalcitonin Venous Blood Potassium Urine Color Urine Clarity Urine pH Ur Specific [place] Urine Protein Urine Glucose (UA) Urine Ketones Urine Blood Urine Nitrate Urine Bilirubin Urine Urobilinogen Ur Leukocyte Esterase Urine RBC (Auto) Urine WBC Clumps (Auto) Urine Microscopic WBC Ur Squamous Epith Cells Urine Bacteria Critical Care Progress Note - Nutrition Nutrition: Nutrition Category Date Time Status Cardiac [Heart Healthy Diet] [DIET] Diets 10/12/16 Breakfast Active Attending/Attestation - Attestation I have personally seen and examined this patient.: Yes I have fully participated in the care of the patient.: Yes I have reviewed all pertinent clinical information: Yes Notes (Text): Today: Wednesday, October 12, 2016 The patient was Seen/interviewed and examined by me at the bedside during ICU round, Medical records reviewed and Management issues were discussed and formulated with the house staff. I have reviewed all the relevant clinical, laboratory, hemodynamic, radiographic data and medications I concur with resident's assessment and plan of care as transcribed in Dr. Wesley Note.
[2016-10-12] MEDS: oxyCODONE 20 mg ER Tab (oxyCONTIN) PO SCH ×2 (08:50→21:10)
--- NOTE | 2016-10-12 10:34 | CARD ---
APPROVED REPORT EKG Measurement Heart [id number] <Conclusion> Atrial fibrillation with rapid ventricular response Nonspecific ST and T wave abnormality Abnormal ECG
--- NOTE | 2016-10-12 11:30 | CP.PCM.CON ---
History of Present Illness - History of Present Illness History of Present Illness: 71 years old female with hx of chronic A Fib, Chronic back Pain, Cervical Cancer , Kidney stone and with Partial Hysterectomy, comes to the ED with genitalia bleed, noticing blood in the toilet after use. This was associated with fever, malaise, Fatigue, dysuria, suprapubic pain and Black stool for 2 days. No nausea , vomiting ,diarrhea, nor urinary frequency. Transferred to ICU for hypotension ID consulted for sepsis PMH: Anemia, Anxiety, Arthritis, Chronic Atrial Fibrillation, Back Problems ( chronic),Sciatica, CHF, HTN, Kidney Stones, Chronic Kidney Disease, Rheumatoid Arthritis, Glaucoma, Cervical Cancer PSH: Cholecystectomy, Hernia Repair, , partial hysterectomy; SH: No Smoking; No Alcohol; No Drugs FH: DM: HTN Allergies: NKDA Review of Systems - Constitutional Constitutional: As Per HPI - EENT Eyes: absent: As Per HPI, Blind Spots, Blurred Vision, Change in Vision, Decreased Night Vision, Diplopia, Discharge, Dry Eye, Exophthalmos, Floaters, Irritation, Itchy Eyes, Loss of Peripheral Vision, Pain, Photophobia, Requires Corrective Lenses, Sees Flashes, Spots in Vision, Tunnel Vision, Other Visual Disturbances, Loss of Vision, Other Ears: absent: As Per HPI, Decreased Hearing, Ear Discharge, Ear Pain, Tinnitus, Abnormal Hearing, Disequilibrium, Dizziness, Other Nose/Mouth/Throat: absent: As Per HPI, Epistaxis, Nasal Congestion, Nasal Discharge, Nasal Obstruction, Nasal Trauma, Nose Pain, Post Nasal Drip, Sinus Pain, Sinus Pressure, Bleeding Gums, Change in Voice, Dental Pain, Dry Mouth, Dysphagia, Halitosis, Hoarsness, Lip Swelling, Mouth Lesions, Mouth Pain, Odynophagia, Sore Throat, Throat Swelling, Tongue Swelling, Facial Pain, Neck Pain, Neck Mass, Other - Breasts Breasts: absent: As Per HPI, Change in Shape, Mass, Pain, Nipple Discharge, Nipple Inversion, Skin Changes, Swelling, Other - Cardiovascular Cardiovascular: absent: As Per HPI, Acrocyanosis, Chest Pain, Chest Pain at Rest , Chest Pain with Activity, Claudication, Diaphoresis, Dyspnea, Dyspnea on Exertion, Edema, Irregular Heart Rhythm, Pain Radiating to Arm/Neck/Jaw, Leg Edema, Leg Ulcers, Lightheadedness, Orthopnea, Palpitations, Paroxysmal Nocturnal Dyspnea, Pedal Edema, Radiating Pain, Rapid Heart Rate, Slow Heart Rate, Syncope, Other - Respiratory Respiratory: absent: As Per HPI, Cough, Dyspnea, Hemoptysis, Dyspnea on Exertion , Wheezing, Snoring, Stridor, Pain on Inspiration, Chest Congestion, Excessive Mucous Production, Change in Mucous Color, Pain with Coughing, Other - Gastrointestinal Gastrointestinal: absent: As Per HPI, Abdominal Pain, Belching, Bloating, Change in Bowel Habits, Change in Stool Character, Coffee Ground Emesis, Constipation, Cramping, Diarrhea, Dyspepsia, Dysphagia, Early Satiety, Excessive Flatus, Fecal Incontinence, Heartburn, Hematemesis, Hematochezia, Loose Stools, Melena, Nausea, Odynophagia, Temesmus, Vomiting, Other - Genitourinary Genitourinary: As Per HPI - Reproductive: Female Reproductive:Female: As Per HPI - Menstruation Menstruation: As Per HPI - Musculoskeletal Musculoskeletal: As Per HPI - Integumentary Integumentary: absent: As Per HPI, Acne, Alopecia, Bleeding Lesions, Change in Hair, Change in Nails, Change in Pigmentation, Changing Lesions, Dry Skin, Erythema, Furuncle, Hirsutism, Lesions, New Lesions, Non-Healing Lesions, Photosensitivity, Pruritus, Rash, Skin Pain, Skin Ulcer, Sores, Striae, Swelling , Unusual Bruising, Wounds, Jaundice, Other - Neurological Neurological: absent: As Per HPI, Abnormal Gait, Abnormal Hearing, Abnormal Movements, Abnormal Speech, Behavioral Changes, Burning Sensations, Confusion, Convulsions, Disequilibrium, Dizziness, Numbness, Focal Weakness, Frequent Falls , Headaches, Lack of Coordination, Loss of Vision, Memory Loss, Paresthesias, Radicular Pain, Restless Legs, Sensory Deficit, Syncope, Tingling, Tremor, Vertigo, Weakness, Other Visual Disturbances, Other - Psychiatric Psychiatric: absent: As Per HPI, Abnormal Sleep Pattern, Anhedonia, Anxiety, Auditory Hallucinations, Behavioral Changes, Change in Appetite, Change in Libido, Confusion, Depression, Difficulty Concentrating, Hallucinations, Homicidal Ideation, Hopelessness, Irritability, Memory Loss, Mood Swings, Panic Attacks, Paranoia, Suicidal Ideation, Visual Hallucinations, Tactile Hallucinations, Other - Endocrine Endocrine: absent: As Per HPI, Change in Body Appearance, Change in Libido, Cold Intolorance, Deepening of Voice, Excessive Sweating, Fatigue, Flushing, Heat Intolorance, Increase in Ring/Shoe/Hat Size, Palpitations, Polydipsia, Polyphagia, Polyuria, Other - Hematologic/Lymphatic Hematologic: absent: As Per HPI, Easy Bleeding, Easy Bruising, Lymphadenopathy, Other Past Patient History - Infectious Disease Hx of Infectious Diseases: None - Past Medical History & Family History Past Medical History?: Yes - Past Social History Smoking Status: Never Smoked Chewing Tobacco Use: No Cigar Use: No Alcohol: None Drugs: Denies Home Situation {Lives}: With Family - CARDIAC Hx Atrial Fibrillation: Yes Hx Congestive Heart Failure: Yes Hx Hypertension: Yes - PULMONARY Hx Respiratory Disorders: No Hx Tuberculosis: No - NEUROLOGICAL Hx Seizures: No - HEENT Hx HEENT Problems: Yes Hx Glaucoma: Yes - RENAL Hx Chronic Kidney Disease: Yes Hx Kidney Stones: Yes - ENDOCRINE/METABOLIC Hx Endocrine Disorders: No - HEMATOLOGICAL/ONCOLOGICAL Hx Anemia: Yes Hx Human Immunodeficiency Virus (HIV): No - INTEGUMENTARY Hx Dermatological Problems: No - MUSCULOSKELETAL/RHEUMATOLOGICAL Hx Arthritis: Yes Hx Back Pain: Yes Hx Rheumatoid Arthritis: Yes - GASTROINTESTINAL Hx Gastrointestinal Disorders: Yes Hx Ulcer: Yes - GENITOURINARY/GYNECOLOGICAL Hx Sexually Transmitted Disorders: No - PSYCHIATRIC Hx Anxiety: Yes - SURGICAL HISTORY Hx Section: Yes Hx Cholecystectomy: Yes Hx Herniorrhaphy: Yes Hx Hysterectomy: Yes (Patial) - ANESTHESIA Hx Anesthesia: Yes Hx Anesthesia Reactions: No Hx Malignant Hyperthermia: No Has any member of the family had a problem w/ anesthesia?: No Meds Allergies/Adverse Reactions: Allergies Allergy/AdvReac Type Severity Reaction Status Date / Time No Known Allergies Allergy Verified 11/03/13 12:57 - Medications Medications: Current Medications Acetaminophen (Tylenol 325mg Tab) 975 mg PO ONCE PRN PRN Reason: Fever >100.4 F Acetaminophen (Tylenol 325mg Tab) 650 mg PO Q4 PRN PRN Reason: Fever >100.4 F Last Admin: 10/12/16 06:14 Dose: 650 mg Citalopram Hydrobromide (Celexa) 10 mg PO DAILY [facility] Last Admin: 10/12/16 08:52 Dose: 10 mg Piperacillin Sod/Tazobactam (Sod 3.375 gm/ Sodium Chloride) 100 mls @ 100 mls/ hr IVPB Q6 [facility] Last Admin: 10/12/16 09:00 Dose: 100 mls/hr Sodium Chloride (Sodium Chloride 0.9%) 1,000 mls @ 75 mls/hr IV .[id number] [facility] Stop: 10/13/16 00:21 Last Admin: 10/12/16 06:16 Dose: 75 mls/hr Latanoprost (Xalatan Opht) 1 drop OD HS [facility] Metoprolol Tartrate (Lopressor) 100 mg PO Q12H [facility] Morphine Sulfate (Morphine) 2 mg IVP Q4 PRN PRN Reason: Pain, moderate (4-7) Oxycodone HCl (Oxycontin Extended Release Tab) 20 mg PO Q12 [facility] Last Admin: 10/12/16 08:50 Dose: 20 mg Oxycodone HCl (Oxycodone Immediate Release Tab) 5 mg PO Q6 PRN PRN Reason: Pain, moderate (4-7) Oxycodone HCl (Oxycodone Immediate Release Tab) 10 mg PO Q6 PRN PRN Reason: Pain, severe (8-10) Timolol Maleate (Timoptic 0.5% Ophth Soln) 1 drop OD BID [facility] Last Admin: 10/12/16 08:53 Dose: 1 drop Physical Exam - Constitutional Appears: Non-toxic, Chronically Ill - Head Exam Head Exam: NORMOCEPHALIC - Eye Exam Eye Exam: PERRL. absent: Scleral icterus - ENT Exam ENT Exam: Mucous Membranes Dry, Normal External Ear Exam - Neck Exam Neck exam: Negative for: Lymphadenopathy, Thyromegaly - Respiratory Exam Respiratory Exam: Decreased Breath Sounds - Cardiovascular Exam Cardiovascular Exam: REGULAR RHYTHM - GI/Abdominal Exam GI & Abdominal Exam: Diminished Bowel Sounds - Rectal Exam Rectal Exam: Deferred - Exam Exam: NORMAL INSPECTION - Extremities Exam Extremities exam: Negative for: calf tenderness, pedal edema - Back Exam Back exam: absent: CVA tenderness (L), CVA tenderness (R) - Neurological Exam Neurological exam: Alert, CN II-XII Intact, Oriented x3, Reflexes Normal - Psychiatric Exam Psychiatric exam: Normal Mood - Skin Skin Exam: Dry Results - Vital Signs Recent Vital Signs: Last Vital Signs Temp 98.8 F 10/12/16 08:00 Pulse 99 H 10/12/16 08:00 Resp 19 10/12/16 08:00 BP 153/85 H 10/12/16 08:00 Pulse Ox 96 10/12/16 08:00 - Labs Result Diagrams: 10/12/16 04:20 10/12/16 04:20 Labs: Laboratory Results - last 24 hr 10/11/16 10/11/16 10/11/16 17:00 18:26 19:29 WBC RBC Hgb Hct MCV MCH MCHC RDW Plt Count MPV Neut % (Auto) Lymph % (Auto) [place] % (Auto) Eos % (Auto) Baso % (Auto) Neut # Lymph # [place] # Eos # Baso # PT 14.0 H INR 1.4 H APTT 33.1 pO2 48 VBG pH 7.36 VBG pCO2 39 L VBG HCO3 22.1 VBG Total CO2 23.2 VBG O2 Sat (Calc) 84.3 H VBG Base Excess -3.1 L VBG Potassium 3.5 L Sodium 135.0 Chloride 106.0 Glucose 96 Lactate 0.9 FiO2 21.0 Potassium Carbon Dioxide Anion Gap BUN Creatinine Est GFR ( Amer) Est GFR (Non-Af Amer) POC Glucose (mg/dL) Random Glucose Calcium Venous Blood Potassium 3.5 L Urine Color [place] Urine Clarity Turbid Urine pH 5.0 Ur Specific [place] 1.025 Urine Protein 100 Urine Glucose (UA) Neg Urine Ketones Negative Urine Blood Large Urine Nitrate Negative Urine Bilirubin Negative Urine Urobilinogen 0.2-1.0 Ur Leukocyte Esterase Small Urine RBC (Auto) 1074 H Urine WBC Clumps (Auto) Mod H Urine Microscopic WBC 50 H Ur Squamous Epith Cells 3 Urine Bacteria Occ H 10/12/16 10/12/16 10/12/16 04:20 04:20 06:21 WBC 12.3 H RBC 4.23 Hgb 10.1 L Hct 33.3 L MCV 78.7 L MCH 23.9 L MCHC 30.4 L RDW 22.7 H Plt Count 254 MPV 8.4 Neut % (Auto) 85.6 H Lymph % (Auto) 6.4 L [place] % (Auto) 6.9 Eos % (Auto) 0.8 Baso % (Auto) 0.3 Neut # 10.6 H Lymph # 0.8 L [place] # 0.9 H Eos # 0.1 Baso # 0.0 PT INR APTT pO2 VBG pH VBG pCO2 VBG HCO3 VBG Total CO2 VBG O2 Sat (Calc) VBG Base Excess VBG Potassium Sodium 138 Chloride 106 Glucose Lactate FiO2 Potassium 4.4 Carbon Dioxide 26 Anion Gap 11 BUN 19 H Creatinine 1.5 H Est GFR ( Amer) 42 Est GFR (Non-Af Amer) 34 POC Glucose (mg/dL) 80 Random Glucose 96 Calcium 8.6 Venous Blood Potassium Urine Color Urine Clarity Urine pH Ur Specific [place] Urine Protein Urine Glucose (UA) Urine Ketones Urine Blood Urine Nitrate Urine Bilirubin Urine Urobilinogen Ur Leukocyte Esterase Urine RBC (Auto) Urine WBC Clumps (Auto) Urine Microscopic WBC Ur Squamous Epith Cells Urine Bacteria Assessment & Plan (1) A-fib Status: Acute (2) Pyelonephritis Status: Acute (3) Anemia Status: Acute - Assessment and Plan (Free Text) Assessment: await cultures may need eval cont IV antibiotics
[2016-10-12] MEDS ORDERED: Chlorhexidine Gluconate 1 APPL/PKT TP ONE (12:39)
[2016-10-12] MEDS: oxyCODONE 5 mg Immediate Release Tab PO PRN ×2 (17:52→23:39)
--- NOTE | 2016-10-12 20:15 | CP.PCM.CON ---
History of Present Illness - History of Present Illness History of Present Illness: THE PATIENT IS A 71 YEAR OLD FEMALE WHO WAS ADMITTED TO [facility] WITH PYELONEPHRITIS AND SEPSIS WHO BECAME HYPOTENSION AND [facility] WAS CALLED AND SHE WAS TRANSFERRED TO THE ICU. SHE IS NOW HEMODYNAMICALLY STABLE. SHE DEVELOPED HEMATURIA AND WILL HAVE A CYSTOSCOPY TOMORROW. SHE ALSO HAS A HISTORY OF CHRONIC ATRIAL FIBRILLATION, HYPERTENSION, CKD, KIDNEY STONES, CERVICAL CA WITH A PARTIAL HYSTERECTOMY MANY YEARS AGO AND RECENT IRON DEFICIENCY ANEMIA. 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 SHE WAS ON SAVAYSA BUT IT IS BEING HELD DUE TO THE HEMATURIA. CARDIOLOGY WAS CALLED TO SEE AND FOLLOW HER. 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 Past Patient History - Infectious Disease Hx of Infectious Diseases: None - Past Medical History & Family History Past Medical History?: Yes - Past Social History Smoking Status: Never Smoked Chewing Tobacco Use: No Cigar Use: No Alcohol: None Drugs: Denies Home Situation {Lives}: With Family - CARDIAC Hx Atrial Fibrillation: Yes Hx Congestive Heart Failure: Yes Hx Hypertension: Yes - PULMONARY Hx Respiratory Disorders: No Hx Tuberculosis: No - NEUROLOGICAL Hx Seizures: No - HEENT Hx HEENT Problems: Yes Hx Glaucoma: Yes - RENAL Hx Chronic Kidney Disease: Yes Hx Kidney Stones: Yes - ENDOCRINE/METABOLIC Hx Endocrine Disorders: No - HEMATOLOGICAL/ONCOLOGICAL Hx Anemia: Yes Hx Human Immunodeficiency Virus (HIV): No - INTEGUMENTARY Hx Dermatological Problems: No - MUSCULOSKELETAL/RHEUMATOLOGICAL Hx Arthritis: Yes Hx Back Pain: Yes Hx Rheumatoid Arthritis: Yes - GASTROINTESTINAL Hx Gastrointestinal Disorders: Yes Hx Ulcer: Yes - GENITOURINARY/GYNECOLOGICAL Hx Sexually Transmitted Disorders: No - PSYCHIATRIC Hx Anxiety: Yes - SURGICAL HISTORY Hx Section: Yes Hx Cholecystectomy: Yes Hx Herniorrhaphy: Yes Hx Hysterectomy: Yes (Patial) - ANESTHESIA Hx Anesthesia: Yes Hx Anesthesia Reactions: No Hx Malignant Hyperthermia: No Has any member of the family had a problem w/ anesthesia?: No Meds Allergies/Adverse Reactions: Allergies Allergy/AdvReac Type Severity Reaction Status Date / Time No Known Allergies Allergy Verified 11/03/13 12:57 - Medications Medications: Current Medications Acetaminophen (Tylenol 325mg Tab) 975 mg PO ONCE PRN PRN Reason: Fever >100.4 F Acetaminophen (Tylenol 325mg Tab) 650 mg PO Q4 PRN PRN Reason: Fever >100.4 F Last Admin: 08/15/17 06:14 Dose: 650 mg Citalopram Hydrobromide (Celexa) 10 mg PO DAILY [facility] Last Admin: 10/12/16 08:52 Dose: 10 mg Piperacillin Sod/Tazobactam (Sod 3.375 gm/ Sodium Chloride) 100 mls @ 100 mls/ hr IVPB Q6 [facility] Last Admin: 10/12/16 17:01 Dose: 100 mls/hr Sodium Chloride (Sodium Chloride 0.9%) 1,000 mls @ 75 mls/hr IV .[id number] [facility]PL[facility] Stop: 10/13/16 00:21 Last Admin: 10/12/16 06:16 Dose: 75 mls/hr Latanoprost (Xalatan Opht) 1 drop OD [facility] Metoprolol Tartrate (Lopressor) 100 mg PO Q12H [facility] Last Admin: 10/12/16 13:42 Dose: 100 mg Morphine Sulfate (Morphine) 2 mg IVP Q4 PRN PRN Reason: Pain, moderate (4-7) Oxycodone HCl (Oxycontin Extended Release Tab) 20 mg PO Q12 [facility] Last Admin: 10/12/16 08:50 Dose: 20 mg Oxycodone HCl (Oxycodone Immediate Release Tab) 5 mg PO Q6 PRN PRN Reason: Pain, moderate (4-7) Last Admin: 10/12/16 17:52 Dose: 5 mg Oxycodone HCl (Oxycodone Immediate Release Tab) 10 mg PO Q6 PRN PRN Reason: Pain, severe (8-10) Timolol Maleate (Timoptic 0.5% [facility] Soln) 1 drop OD BID [facility] Last Admin: 10/12/16 17:02 Dose: 1 drop Physical Exam - Respiratory Exam Respiratory Exam: Clear to Auscultation Bilateral - Cardiovascular Exam Cardiovascular Exam: Irregular Rhythm, +S1, +S2 - Extremities Exam Extremities exam: Positive for: pedal edema (EKG ATRIAL FIBRILLATION) Results - Vital Signs Recent Vital Signs: Last Vital Signs Temp 98.7 F 10/12/16 20:00 Pulse 93 H 10/12/16 20:00 Resp 15 10/12/16 20:00 BP 134/96 H 10/12/16 20:00 Pulse Ox 95 10/12/16 20:00 - Labs Result Diagrams: 10/12/16 04:20 10/12/16 04:20 Labs: Laboratory Results - last 24 hr 10/12/16 10/12/16 10/12/16 04:20 04:20 05:55 WBC 12.3 H RBC 4.23 Hgb 10.1 L Hct 33.3 L MCV 78.7 L MCH 23.9 L MCHC 30.4 L RDW 22.7 H Plt Count 254 MPV 8.4 Neut % (Auto) 85.6 H Lymph % (Auto) 6.4 L [place] % (Auto) 6.9 Eos % (Auto) 0.8 Baso % (Auto) 0.3 Neut # 10.6 H Lymph # 0.8 L [place] # 0.9 H Eos # 0.1 Baso # 0.0 Sodium 138 Potassium 4.4 Chloride 106 Carbon Dioxide 26 Anion Gap 11 BUN 19 H Creatinine 1.5 H Est GFR ( Amer) 42 Est GFR (Non-Af Amer) 34 POC Glucose (mg/dL) Random Glucose 96 Calcium 8.6 Procalcitonin 0.19 10/12/16 10/12/16 10/12/16 06:21 13:25 15:47 WBC RBC Hgb Hct MCV MCH MCHC RDW Plt Count MPV Neut % (Auto) Lymph % (Auto) [place] % (Auto) Eos % (Auto) Baso % (Auto) Neut # Lymph # [place] # Eos # Baso # Sodium Potassium Chloride Carbon Dioxide Anion Gap BUN Creatinine Est GFR ( Amer) Est GFR (Non-Af Amer) POC Glucose (mg/dL) 80 146 H 150 H Random Glucose Calcium Procalcitonin Assessment & Plan - Assessment and Plan (Free Text) Assessment: CHRONIC ATRIAL FIBRILLATION HEMATURIA PYELONEPHRITIS HYPERTENSION HISTORY OF CERVICAL CA WITH PARTIAL HYSTERECTOMY Plan: CONTINUE IV ANTIBIOTICS, IV FLUIDS AND METOPROLOL SAVAYSA ON HOLD DUE TO HEMATURIA THE PATIENT IS CLEARED FOR CYSTOSCOPY IN THE AM
--- NOTE | 2016-10-12 20:40 | CP.PCM.HP ---
History of Present Illness - History of Present Illness History of Present Illness: 71 yo with hx Heart dx A-fib on anticoagulation admitted for Hematuria Present on Admission - Present on Admission Any Indicators Present on Admission: No Past Patient History - Infectious Disease Hx of Infectious Diseases: None - Past Medical History & Family History Past Medical History?: Yes - Past Social History Smoking Status: Never Smoked Chewing Tobacco Use: No Cigar Use: No Alcohol: None Drugs: Denies Home Situation {Lives}: With Family - CARDIAC Hx Atrial Fibrillation: Yes Hx Congestive Heart Failure: Yes Hx Hypertension: Yes - PULMONARY Hx Respiratory Disorders: No Hx Tuberculosis: No - NEUROLOGICAL Hx Seizures: No - HEENT Hx HEENT Problems: Yes Hx Glaucoma: Yes - RENAL Hx Chronic Kidney Disease: Yes Hx Kidney Stones: Yes - ENDOCRINE/METABOLIC Hx Endocrine Disorders: No - HEMATOLOGICAL/ONCOLOGICAL Hx Anemia: Yes Hx Human Immunodeficiency Virus (HIV): No - INTEGUMENTARY Hx Dermatological Problems: No - MUSCULOSKELETAL/RHEUMATOLOGICAL Hx Arthritis: Yes Hx Back Pain: Yes Hx Rheumatoid Arthritis: Yes - GASTROINTESTINAL Hx Gastrointestinal Disorders: Yes Hx Ulcer: Yes - GENITOURINARY/GYNECOLOGICAL Hx Sexually Transmitted Disorders: No - PSYCHIATRIC Hx Anxiety: Yes - SURGICAL HISTORY Hx Section: Yes Hx Cholecystectomy: Yes Hx Herniorrhaphy: Yes Hx Hysterectomy: Yes (Patial) - ANESTHESIA Hx Anesthesia: Yes Hx Anesthesia Reactions: No Hx Malignant Hyperthermia: No Has any member of the family had a problem w/ anesthesia?: No Meds Allergies/Adverse Reactions: Allergies Allergy/AdvReac Type Severity Reaction Status Date / Time No Known Allergies Allergy Verified 11/03/13 12:57 Physical Exam - Respiratory Exam Respiratory Exam: Wheezes - Cardiovascular Exam Cardiovascular Exam: REGULAR RHYTHM - GI/Abdominal Exam GI & Abdominal Exam: Normal Bowel Sounds Results - Vital Signs Recent Vital Signs: Last Vital Signs Temp 98.7 F 10/12/16 20:00 Pulse 93 H 10/12/16 20:00 Resp 15 10/12/16 20:00 BP 134/96 H 10/12/16 20:00 Pulse Ox 95 10/12/16 20:00 - Labs Result Diagrams: 10/12/16 04:20 10/12/16 04:20 Labs: Laboratory Results - last 24 hr 10/12/16 10/12/16 10/12/16 04:20 04:20 05:55 WBC 12.3 H RBC 4.23 Hgb 10.1 L Hct 33.3 L MCV 78.7 L MCH 23.9 L MCHC 30.4 L RDW 22.7 H Plt Count 254 MPV 8.4 Neut % (Auto) 85.6 H Lymph % (Auto) 6.4 L [place] % (Auto) 6.9 Eos % (Auto) 0.8 Baso % (Auto) 0.3 Neut # 10.6 H Lymph # 0.8 L [place] # 0.9 H Eos # 0.1 Baso # 0.0 Sodium 138 Potassium 4.4 Chloride 106 Carbon Dioxide 26 Anion Gap 11 BUN 19 H Creatinine 1.5 H Est GFR ( Amer) 42 Est GFR (Non-Af Amer) 34 POC Glucose (mg/dL) Random Glucose 96 Calcium 8.6 Procalcitonin 0.19 10/12/16 10/12/16 10/12/16 06:21 13:25 15:47 WBC RBC Hgb Hct MCV MCH MCHC RDW Plt Count MPV Neut % (Auto) Lymph % (Auto) [place] % (Auto) Eos % (Auto) Baso % (Auto) Neut # Lymph # [place] # Eos # Baso # Sodium Potassium Chloride Carbon Dioxide Anion Gap BUN Creatinine Est GFR ( Amer) Est GFR (Non-Af Amer) POC Glucose (mg/dL) 80 146 H 150 H Random Glucose Calcium Procalcitonin Assessment & Plan - Assessment and Plan (Free Text) Assessment: Hematuria/ Pyelonephritis Urology Cystoscopy ID [id number] Cuktures Hypotension etiol Sepsis vs Narcotics Heart dx Afib Cardiology CKD Nephrology Chronic pain Anxiety Pain management - Date & Time Date: 10/12/16 Time: 22:22
[2016-10-12] MEDS: Latanoprost 0.005% Opht SOUTION OD SCH (21:11)
[2016-10-12] MEDS ORDERED: Latanoprost 0.005% Opht SOUTION OD SCH (22:00)
--- NOTE | 2016-10-13 00:49 | CON ---
DATE: 10/12/2016 HISTORY OF PRESENT ILLNESS: This is a 71-year-old female patient, who I was called to see for evaluation of gross hematuria, probably she has had this for bit in the past. She was in the process of GI workup, which she never followed through on, but now came to the hospital because of acute bleeding. The patient's past surgical history is having her cervix removed in the past. She has not had any recent gynecologic followup. She came through the emergency room, a CT scan was done and showed some evidence of significant hydronephrosis with stranding in the area of the left kidney, appears to be not stone related, there appears to be hyperdense fluid within the renal pelvis suggesting blood components. The laboratory work for the patient shows that she has currently a BUN of 19 and creatinine of 1.9. Blood counts this morning, hemoglobin of 10.1, hematocrit of 33.3, and white count is coming down, today it is 12.3. Though, I told the patient that she needs a basic workup to start, we will send her urine for urine cytology and I will schedule for this patient a cystoscopy and perhaps some ureteroscopic evaluation on the left renal unit and this will be a scheduled procedure. The patient understands and we will go ahead and schedule this for her. Khloe Healy MD
[2016-10-13] MEDS: Piperacillin/Tazobact 3.375 GM in Sodium Chloride 0.9% 100 ML IVPB SCH ×4 (04:07→22:59)
[2016-10-13 05:49] LABS: BASO % 0.4 % (0.0-2.0); EOS # 0.1 K/uL (0.0-0.7); EOS % 0.8 % (0.0-4.0); HEMATOCRIT 30.2 % (34.0-47.0); LYMPH # 0.5 K/uL (1.0-4.3); LYMPH % 5.6 % (20.0-40.0); MEAN CELL VOLUME 78.5 fl (81.0-99.0); MEAN CORPUSCULAR HEMOGLOBIN 24.6 pg (27.0-31.0); MEAN CORPUSCULAR HGB CONC 31.3 g/dL (33.0-37.0); MEAN PLATELET VOLUME 8.7 fl (7.2-11.7); MONO # 1.1 K/uL (0.0-0.8); MONO % 11.7 % (0.0-10.0); NEUT # 7.6 K/uL (1.8-7.0); NEUT % 81.5 % (50.0-75.0); NRBC % 0.1 % (0.0-0.0); RED CELL DISTRIBUTION WIDTH 22.9 % (11.5-14.5); WHITE BLOOD COUNT 9.3 K/uL (4.8-10.8)
[2016-10-13 05:55] LABS: BILIRUBIN,TOTAL 0.6 mg/dl (0.2-1.3); CALCIUM 8.6 mg/dL (8.4-10.2); POTASSIUM 4.5 MMOL/L (3.6-5.0); TOTAL PROTEIN 6.2 G/DL (6.3-8.2)
[2016-10-13] MEDS ORDERED: Midazolam 2 MG/2 ML VIAL ONE (07:45)
[2016-10-13] MEDS ORDERED: Propofol 10 mg/ml Inj (20 ML) ONE (07:45)
[2016-10-13] MEDS ORDERED: Etomidate 20 mg/10ml Inj IV ONE (07:51)
[2016-10-13] MEDS ORDERED: Lidocaine 2% Jelly (Uro-Jet) ONE (07:53)
--- NOTE | 2016-10-13 07:56 | CP.PCM.CON ---
<Talha Bill - Last Filed: 10/13/16 08:08> History of Present Illness - History of Present Illness History of Present Illness: 71 y/o F comes to the ED c/o Hematuria, noticing blood in the toilet after use. This was associated with fever, malaise, Fatigue, dysuria, suprapubic pain and Black stool for 2 days. No nausea, vomiting ,diarrhea, nor urinary frequency. Patient was transferred to ICU due to Hypotension. PMH: Anemia, Anxiety, Arthritis, Chronic Atrial Fibrillation, Back Problems ( chronic),Sciatica, CHF, HTN, Kidney Stones, Chronic Kidney Disease, Rheumatoid Arthritis, Glaucoma, Cervical Cancer s/p Hysterectomy 13 years ago PSH: Cholecystectomy, Hernia Repair, , partial hysterectomy; SH: No Smoking; No Alcohol; No Drugs FH: DM: HTN Allergies: NKDA Review of Systems - Review of Systems Review of Systems: As per HPI Past Patient History - Infectious Disease Hx of Infectious Diseases: None - Past Medical History & Family History Past Medical History?: Yes - Past Social History Smoking Status: Never Smoked Chewing Tobacco Use: No Cigar Use: No Alcohol: None Drugs: Denies Home Situation {Lives}: With Family - CARDIAC Hx Atrial Fibrillation: Yes Hx Congestive Heart Failure: Yes Hx Hypertension: Yes - PULMONARY Hx Respiratory Disorders: No Hx Tuberculosis: No - NEUROLOGICAL Hx Seizures: No - HEENT Hx HEENT Problems: Yes Hx Glaucoma: Yes - RENAL Hx Chronic Kidney Disease: Yes Hx Kidney Stones: Yes - ENDOCRINE/METABOLIC Hx Endocrine Disorders: No - HEMATOLOGICAL/ONCOLOGICAL Hx Anemia: Yes Hx Human Immunodeficiency Virus (HIV): No - INTEGUMENTARY Hx Dermatological Problems: No - MUSCULOSKELETAL/RHEUMATOLOGICAL Hx Arthritis: Yes Hx Back Pain: Yes Hx Rheumatoid Arthritis: Yes - GASTROINTESTINAL Hx Gastrointestinal Disorders: Yes Hx Ulcer: Yes - GENITOURINARY/GYNECOLOGICAL Hx Sexually Transmitted Disorders: No - PSYCHIATRIC Hx Anxiety: Yes - SURGICAL HISTORY Hx Section: Yes Hx Cholecystectomy: Yes Hx Herniorrhaphy: Yes Hx Hysterectomy: Yes (Patial) - ANESTHESIA Hx Anesthesia: Yes Hx Anesthesia Reactions: No Hx Malignant Hyperthermia: No Has any member of the family had a problem w/ anesthesia?: No Meds Allergies/Adverse Reactions: Allergies Allergy/AdvReac Type Severity Reaction Status Date / Time No Known Allergies Allergy Verified 11/03/13 12:57 - Medications Medications: Current Medications Acetaminophen (Tylenol 325mg Tab) 975 mg PO ONCE PRN PRN Reason: Fever >100.4 F Acetaminophen (Tylenol 325mg Tab) 650 mg PO Q4 PRN PRN Reason: Fever >100.4 F Last Admin: 10/12/16 06:14 Dose: 650 mg Citalopram Hydrobromide (Celexa) 10 mg PO DAILY [facility] Last Admin: 10/12/16 08:52 Dose: 10 mg Piperacillin Sod/Tazobactam (Sod 3.375 gm/ Sodium Chloride) 100 mls @ 100 mls/ hr IVPB Q6 [facility] Last Admin: 10/13/16 04:07 Dose: 100 mls/hr Latanoprost (Xalatan Opht) 1 drop OD HS [facility] Last Admin: 10/12/16 21:11 Dose: 1 drop Metoprolol Tartrate (Lopressor) 100 mg PO Q12H [facility] Last Admin: 10/12/16 23:40 Dose: 100 mg Morphine Sulfate (Morphine) 2 mg IVP Q4 PRN PRN Reason: Pain, moderate (4-7) Oxycodone HCl (Oxycontin Extended Release Tab) 20 mg PO Q12 [facility] Last Admin: 10/12/16 21:10 Dose: 20 mg Oxycodone HCl (Oxycodone Immediate Release Tab) 5 mg PO Q6 PRN PRN Reason: Pain, moderate (4-7) Last Admin: 10/12/16 23:39 Dose: 5 mg Oxycodone HCl (Oxycodone Immediate Release Tab) 10 mg PO Q6 PRN PRN Reason: Pain, severe (8-10) Timolol Maleate (Timoptic 0.5% Ophth Soln) 1 drop OD BID [facility] Last Admin: 10/12/16 17:02 Dose: 1 drop Physical Exam - Constitutional Appears: Well, No Acute Distress - Head Exam Head Exam: ATRAUMATIC, NORMAL INSPECTION, NORMOCEPHALIC - ENT Exam ENT Exam: Mucous Membranes Moist - Neck Exam Neck exam: Negative for: Lymphadenopathy - Respiratory Exam Respiratory Exam: Clear to Auscultation Bilateral, NORMAL BREATHING PATTERN. absent: Accessory Muscle Use, Chest Wall Tenderness - Cardiovascular Exam Cardiovascular Exam: Irregular Rhythm. absent: Systolic Murmur - GI/Abdominal Exam GI & Abdominal Exam: Normal Bowel Sounds. absent: Distended - Exam Additional comments: pt denied Speculum exam, it was done earlier today by Critical care team. As per critical care team and ICU nurse: no genital active bleeding, no vaginal bleeding, no cervix s/p hysterectomy. Negative for: Vaginal Discharge, Vaginal Bleeding, Vaginal Lesions, Adenexal Tenderness - Extremities Exam Extremities exam: Positive for: pedal edema (+2) - Neurological Exam Neurological exam: Alert, CN II-XII Intact, Oriented x3 - Psychiatric Exam Psychiatric exam: Normal Mood - Skin Skin Exam: Dry, Intact, Normal Color Results - Vital Signs Recent Vital Signs: Last Vital Signs Temp 98.0 F 10/13/16 04:00 Pulse 79 10/13/16 06:00 Resp 14 10/13/16 06:00 BP 126/73 10/13/16 06:00 Pulse Ox 95 10/13/16 06:00 - Labs Result Diagrams: 10/13/16 04:50 10/13/16 04:50 Labs: Laboratory Results - last 24 hr 10/12/16 10/12/16 10/12/16 05:55 13:25 15:47 WBC RBC Hgb Hct MCV MCH MCHC RDW Plt Count MPV Neut % (Auto) Lymph % (Auto) [place] % (Auto) Eos % (Auto) Baso % (Auto) Neut # Lymph # [place] # Eos # Baso # PT INR APTT Sodium Potassium Chloride Carbon Dioxide Anion Gap BUN Creatinine Est GFR ( Amer) Est GFR (Non-Af Amer) POC Glucose (mg/dL) 146 H 150 H Random Glucose Lactic Acid Calcium Total Bilirubin AST ALT Alkaline Phosphatase Total Protein Albumin Globulin Albumin/Globulin Ratio Procalcitonin 0.19 10/12/16 10/13/16 10/13/16 23:37 04:50 04:50 WBC 9.3 RBC 3.84 Hgb 9.4 L Hct 30.2 L MCV 78.5 L MCH 24.6 L MCHC 31.3 L RDW 22.9 H Plt Count 224 MPV 8.7 Neut % (Auto) 81.5 H Lymph % (Auto) 5.6 L [place] % (Auto) 11.7 H Eos % (Auto) 0.8 Baso % (Auto) 0.4 Neut # 7.6 H Lymph # 0.5 L [place] # 1.1 H Eos # 0.1 Baso # 0.0 PT 13.9 H INR 1.3 H APTT 28.0 D Sodium Potassium Chloride Carbon Dioxide Anion Gap BUN Creatinine Est GFR ( Amer) Est GFR (Non-Af Amer) POC Glucose (mg/dL) 136 H Random Glucose Lactic Acid Calcium Total Bilirubin AST ALT Alkaline Phosphatase Total Protein Albumin Globulin Albumin/Globulin Ratio Procalcitonin 10/13/16 10/13/16 10/13/16 04:50 04:50 06:30 WBC RBC Hgb Hct MCV MCH MCHC RDW Plt Count MPV Neut % (Auto) Lymph % (Auto) [place] % (Auto) Eos % (Auto) Baso % (Auto) Neut # Lymph # [place] # Eos # Baso # PT INR APTT Sodium 138 Potassium 4.5 Chloride 108 H Carbon Dioxide 23 Anion Gap 12 BUN 20 H Creatinine 1.5 H Est GFR ( Amer) 42 Est GFR (Non-Af Amer) 34 POC Glucose (mg/dL) 114 H Random Glucose 102 Lactic Acid 0.7 Calcium 8.6 Total Bilirubin 0.6 AST 22 ALT 25 Alkaline Phosphatase 66 Total Protein 6.2 L Albumin 3.1 L D Globulin 3.0 Albumin/Globulin Ratio 1.0 Procalcitonin Assessment & Plan - Assessment and Plan (Free Text) Assessment: A/P: 71 y/o F with history of Cervical cancer s/p Hysterectomy years ago, admitted for Hematuria Speculum examination was done by critical care team. Pt denied another exam. As per Critical care team and ICU nurse no genital active bleeding, no vaginal bleeding, no cervix s/p hysterectomy. - f/u Urology and Cystoscopy Thank you for OB Consult - Date & Time Date: 10/12/16 Time: 08:00 <Lee Romero - Last Filed: 10/13/16 14:25> Meds - Medications Medications: Current Medications Acetaminophen (Tylenol 325mg Tab) 975 mg PO ONCE PRN PRN Reason: Fever >100.4 F Acetaminophen (Tylenol 325mg Tab) 650 mg PO Q4 PRN PRN Reason: Fever >100.4 F Last Admin: 10/12/16 06:14 Dose: 650 mg Citalopram Hydrobromide (Celexa) 10 mg PO DAILY [facility] Last Admin: 10/13/16 10:53 Dose: 10 mg Piperacillin Sod/Tazobactam (Sod 3.375 gm/ Sodium Chloride) 100 mls @ 100 mls/ hr IVPB Q6 [facility] Last Admin: 10/13/16 10:57 Dose: 100 mls/hr Latanoprost (Xalatan Opht) 1 drop OD HS [facility] Last Admin: 10/12/16 21:11 Dose: 1 drop Metoprolol Tartrate (Lopressor) 100 mg PO Q12H [facility] Last Admin: 10/13/16 10:53 Dose: 100 mg Morphine Sulfate (Morphine) 2 mg IVP Q4 PRN PRN Reason: Pain, moderate (4-7) Last Admin: 10/13/16 12:49 Dose: 2 mg Oxycodone HCl (Oxycontin Extended Release Tab) 20 mg PO Q12 [facility] Last Admin: 10/13/16 10:56 Dose: 20 mg Oxycodone HCl (Oxycodone Immediate Release Tab) 5 mg PO Q6 PRN PRN Reason: Pain, moderate (4-7) Last Admin: 10/12/16 23:39 Dose: 5 mg Oxycodone HCl (Oxycodone Immediate Release Tab) 10 mg PO Q6 PRN PRN Reason: Pain, severe (8-10) Timolol Maleate (Timoptic 0.5% Ophth Soln) 1 drop OD BID [facility] Last Admin: 10/13/16 10:56 Dose: 1 drop Results - Vital Signs Recent Vital Signs: Last Vital Signs Temp 97.8 F 10/13/16 12:00 Pulse 89 10/13/16 12:00 Resp 13 10/13/16 12:00 BP 151/63 H 10/13/16 12:00 Pulse Ox 95 10/13/16 12:00 - Labs Result Diagrams: 10/13/16 04:50 10/13/16 04:50 Labs: Laboratory Results - last 24 hr 10/12/16 10/12/16 10/13/16 15:47 23:37 04:50 WBC 9.3 RBC 3.84 Hgb 9.4 L Hct 30.2 L MCV 78.5 L MCH 24.6 L MCHC 31.3 L RDW 22.9 H Plt Count 224 MPV 8.7 Neut % (Auto) 81.5 H Lymph % (Auto) 5.6 L [place] % (Auto) 11.7 H Eos % (Auto) 0.8 Baso % (Auto) 0.4 Neut # 7.6 H Lymph # 0.5 L [place] # 1.1 H Eos # 0.1 Baso # 0.0 PT INR APTT Sodium Potassium Chloride Carbon Dioxide Anion Gap BUN Creatinine Est GFR ( Amer) Est GFR (Non-Af Amer) POC Glucose (mg/dL) 150 H 136 H Random Glucose Lactic Acid Calcium Total Bilirubin AST ALT Alkaline Phosphatase Total Protein Albumin Globulin Albumin/Globulin Ratio 10/13/16 10/13/16 10/13/16 04:50 04:50 04:50 WBC RBC Hgb Hct MCV MCH MCHC RDW Plt Count MPV Neut % (Auto) Lymph % (Auto) [place] % (Auto) Eos % (Auto) Baso % (Auto) Neut # Lymph # [place] # Eos # Baso # PT 13.9 H INR 1.3 H APTT 28.0 D Sodium 138 Potassium 4.5 Chloride 108 H Carbon Dioxide 23 Anion Gap 12 BUN 20 H Creatinine 1.5 H Est GFR ( Amer) 42 Est GFR (Non-Af Amer) 34 POC Glucose (mg/dL) Random Glucose 102 Lactic Acid 0.7 Calcium 8.6 Total Bilirubin 0.6 AST 22 ALT 25 Alkaline Phosphatase 66 Total Protein 6.2 L Albumin 3.1 L D Globulin 3.0 Albumin/Globulin Ratio 1.0 10/13/16 10/13/16 06:30 11:04 WBC RBC Hgb Hct MCV MCH MCHC RDW Plt Count MPV Neut % (Auto) Lymph % (Auto) [place] % (Auto) Eos % (Auto) Baso % (Auto) Neut # Lymph # [place] # Eos # Baso # PT INR APTT Sodium Potassium Chloride Carbon Dioxide Anion Gap BUN Creatinine Est GFR ( Amer) Est GFR (Non-Af Amer) POC Glucose (mg/dL) 114 H 98 Random Glucose Lactic Acid Calcium Total Bilirubin AST ALT Alkaline Phosphatase Total Protein Albumin Globulin Albumin/Globulin Ratio Assessment & Plan (1) Pyelonephritis Status: Acute (2) Anemia Status: Acute - Assessment and Plan (Free Text) Plan: She declined exam...note by examiner that there was no lesion in vagina...re- consult with [employer] service if/when needed...agree with note from Dr Bill...treated as per medicine/urology
[2016-10-13] MEDS ORDERED: Lactated Ringer's 1,000 ML IV ONE (08:05)
[2016-10-13] MEDS ORDERED: Lidocaine 2% Jelly (Uro-Jet) TOP ONE (08:20)
[2016-10-13] MEDS ORDERED: Iohexol 300 100 ML IJ ONE ×2 (08:25→09:21)
[2016-10-13] MEDS ORDERED: HYDROmorphone 0.5 mg/0.5 ml ISec ONE (08:47)
--- NOTE | 2016-10-13 08:48 | CP.CCUPN ---
<Cindy Wesley - Last Filed: 10/13/16 11:43> CCU Subjective - Physician Review Subjective (Free Text): 10/13/16 7:10 am Patient seen and examined bedside in the morning before going to cystoscopy. AAOx3. No overnight event. Patient still reports hematuria and less dysuria. Afebrile, toleting diet. Hemodynamically stable. CCU Objective - Vital Signs / Intake & Output Vital Signs (Last 4 hours): Vital Signs Pulse Resp BP Pulse Ox 10/13/16 06:00 79 14 126/73 95 Intake and Output (Last 8hrs): Intake & Output 10/12/16 10/13/16 10/13/16 22:59 06:59 14:59 Intake Total 325 950 Balance 325 950 Intake: IV 225 750 Intake, Piggyback 100 200 Other: # Voids Urine, Voided 1 4 - Physical Exam Head: Positive for: Atraumatic, Normocephalic Conjunctiva: Positive for: Normal Mouth: Positive for: Moist Mucous Membranes Respiratory/Chest: Positive for: Clear to Auscultation. Negative for: Wheezes, Rales Cardiovascular: Positive for: Irregular Rhythm. Negative for: Murmurs Abdomen: Positive for: Normal Bowel Sounds. Negative for: Tenderness, Distention, Rebound, Guarding Genitourinary/Pelvic Exam: Positive for: Normal External Genitalia, Other (SSE: No genital active bleeding, no vaginal bleeding, no cervix s/p hysterectomy. digital exam normal). Negative for: Vaginal Discharge, Vaginal Bleeding, Vaginal Lesions, Adenexal Tenderness Upper Extremity: Positive for: Normal Inspection Lower Extremity: Positive for: Swelling (pedal edema 2+). Negative for: CALF TENDERNESS Neurological: Positive for: Speech Normal, Motor Func Grossly Intact Skin: Positive for: Warm, Normal Color Psychiatric: Positive for: Alert, Oriented x 3, Normal Mood - Medications Active Medications: Active Medications Generic Name Dose Route Start Last Admin Trade Name Freq PRN Reason Stop Dose Admin Acetaminophen 975 mg 10/12/16 00:18 Tylenol 325mg Tab PO ONCE PRN Fever >100.4 F Acetaminophen 650 mg 10/12/16 06:10 10/12/16 06:14 Tylenol 325mg Tab PO 650 mg Q4 PRN Administration Fever >100.4 F Citalopram Hydrobromide 10 mg 10/12/16 09:00 10/12/16 08:52 Celexa PO 10 mg DAILY SUZANNA Administration Piperacillin Sod/Tazobactam 100 mls @ 100 mls/hr 10/12/16 04:00 10/13/16 04: 07 Sod 3.375 gm/ Sodium Chloride IVPB 100 mls/hr Q6 SUZANNA Administration Latanoprost 1 drop 10/12/16 22:00 10/12/16 21:11 Xalatan Opht OD 1 drop HS SUZANNA Administration Metoprolol Tartrate 100 mg 10/12/16 11:45 10/12/16 23:40 Lopressor PO 100 mg Q12H SUZANNA Administration Morphine Sulfate 2 mg 10/12/16 03:25 Morphine IVP Q4 PRN Pain, moderate (4-7) Oxycodone HCl 20 mg 10/12/16 09:00 10/12/16 21:10 Oxycontin Extended Release Tab PO 20 mg Q12 SUZANNA Administration Oxycodone HCl 5 mg 10/12/16 03:33 10/12/16 23:39 Oxycodone Immediate Release Tab PO 5 mg Q6 PRN Administration Pain, moderate (4-7) Oxycodone HCl 10 mg 10/12/16 04:15 Oxycodone Immediate Release Tab PO Q6 PRN Pain, severe (8-10) Timolol Maleate 1 drop 10/12/16 09:00 10/12/16 17:02 Timoptic 0.5% Ophth Soln OD 1 drop BID SUZANNA Administration - Patient Studies Lab Studies: Lab Studies 10/13/16 10/13/16 10/13/16 Range/Units 06:30 04:50 04:50 WBC (4.8-10.8) K/uL RBC (3.80-5.20) Mil/uL Hgb (12.0-16.0) g/dL Hct (34.0-47.0) % MCV (81.0-99.0) fl MCH (27.0-31.0) pg MCHC (33.0-37.0) g/dL RDW (11.5-14.5) % Plt Count (130-400) K/uL MPV (7.2-11.7) fl Neut % (Auto) (50.0-75.0) % Lymph % (Auto) (20.0-40.0) % [place] % (Auto) (0.0-10.0) % Eos % (Auto) (0.0-4.0) % Baso % (Auto) (0.0-2.0) % Neut # (1.8-7.0) K/uL Lymph # (1.0-4.3) K/uL [place] # (0.0-0.8) K/uL Eos # (0.0-0.7) K/uL Baso # (0.0-0.2) K/uL PT (9.8-13.1) Seconds INR (0.9-1.2) APTT (25.6-37.1) Seconds Sodium 138 (132-148) mmol/l Potassium 4.5 (3.6-5.0) MMOL/L Chloride 108 H (98-107) mmol/L Carbon Dioxide 23 (22-30) mmol/L Anion Gap 12 (10-20) BUN 20 H (7-17) mg/dl Creatinine 1.5 H (0.7-1.2) mg/dL Est GFR ( Amer) 42 Est GFR (Non-Af Amer) 34 POC Glucose (mg/dL) 114 H (65-110) mg/dL Random Glucose 102 (65-105) mg/dL Lactic Acid 0.7 (0.7-2.1) MMOL/L Calcium 8.6 (8.4-10.2) mg/dL Total Bilirubin 0.6 (0.2-1.3) mg/dl AST 22 (14-36) U/L ALT 25 (9-52) U/L Alkaline Phosphatase 66 (38-126) U/L Total Protein 6.2 L (6.3-8.2) G/DL Albumin 3.1 L D (3.5-5.0) g/dL Globulin 3.0 (2.2-3.9) gm/dL Albumin/Globulin Ratio 1.0 (1.0-2.1) Procalcitonin (0.19-0.49) NG/ML 10/13/16 10/13/16 10/12/16 Range/Units 04:50 04:50 23:37 WBC 9.3 (4.8-10.8) K/uL RBC 3.84 (3.80-5.20) Mil/uL Hgb 9.4 L (12.0-16.0) g/dL Hct 30.2 L (34.0-47.0) % MCV 78.5 L (81.0-99.0) fl MCH 24.6 L (27.0-31.0) pg MCHC 31.3 L (33.0-37.0) g/dL RDW 22.9 H (11.5-14.5) % Plt Count 224 (130-400) K/uL MPV 8.7 (7.2-11.7) fl Neut % (Auto) 81.5 H (50.0-75.0) % Lymph % (Auto) 5.6 L (20.0-40.0) % [place] % (Auto) 11.7 H (0.0-10.0) % Eos % (Auto) 0.8 (0.0-4.0) % Baso % (Auto) 0.4 (0.0-2.0) % Neut # 7.6 H (1.8-7.0) K/uL Lymph # 0.5 L (1.0-4.3) K/uL [place] # 1.1 H (0.0-0.8) K/uL Eos # 0.1 (0.0-0.7) K/uL Baso # 0.0 (0.0-0.2) K/uL PT 13.9 H (9.8-13.1) Seconds INR 1.3 H (0.9-1.2) APTT 28.0 D (25.6-37.1) Seconds Sodium (132-148) mmol/l Potassium (3.6-5.0) MMOL/L Chloride (98-107) mmol/L Carbon Dioxide (22-30) mmol/L Anion Gap (10-20) BUN (7-17) mg/dl Creatinine (0.7-1.2) mg/dL Est GFR ( Amer) Est GFR (Non-Af Amer) POC Glucose (mg/dL) 136 H (65-110) mg/dL Random Glucose (65-105) mg/dL Lactic Acid (0.7-2.1) MMOL/L Calcium (8.4-10.2) mg/dL Total Bilirubin (0.2-1.3) mg/dl AST (14-36) U/L ALT (9-52) U/L Alkaline Phosphatase (38-126) U/L Total Protein (6.3-8.2) G/DL Albumin (3.5-5.0) g/dL Globulin (2.2-3.9) gm/dL Albumin/Globulin Ratio (1.0-2.1) Procalcitonin (0.19-0.49) NG/ML 10/12/16 10/12/16 10/12/16 Range/Units 15:47 13:25 05:55 WBC (4.8-10.8) K/uL RBC (3.80-5.20) Mil/uL Hgb (12.0-16.0) g/dL Hct (34.0-47.0) % MCV (81.0-99.0) fl MCH (27.0-31.0) pg MCHC (33.0-37.0) g/dL RDW (11.5-14.5) % Plt Count (130-400) K/uL MPV (7.2-11.7) fl Neut % (Auto) (50.0-75.0) % Lymph % (Auto) (20.0-40.0) % [place] % (Auto) (0.0-10.0) % Eos % (Auto) (0.0-4.0) % Baso % (Auto) (0.0-2.0) % Neut # (1.8-7.0) K/uL Lymph # (1.0-4.3) K/uL [place] # (0.0-0.8) K/uL Eos # (0.0-0.7) K/uL Baso # (0.0-0.2) K/uL PT (9.8-13.1) Seconds INR (0.9-1.2) APTT (25.6-37.1) Seconds Sodium (132-148) mmol/l Potassium (3.6-5.0) MMOL/L Chloride (98-107) mmol/L Carbon Dioxide (22-30) mmol/L Anion Gap (10-20) BUN (7-17) mg/dl Creatinine (0.7-1.2) mg/dL Est GFR ( Amer) Est GFR (Non-Af Amer) POC Glucose (mg/dL) 150 H 146 H (65-110) mg/dL Random Glucose (65-105) mg/dL Lactic Acid (0.7-2.1) MMOL/L Calcium (8.4-10.2) mg/dL Total Bilirubin (0.2-1.3) mg/dl AST (14-36) U/L ALT (9-52) U/L Alkaline Phosphatase (38-126) U/L Total Protein (6.3-8.2) G/DL Albumin (3.5-5.0) g/dL Globulin (2.2-3.9) gm/dL Albumin/Globulin Ratio (1.0-2.1) Procalcitonin 0.19 (0.19-0.49) NG/ML Laboratory Results - last 24 hr 10/12/16 10/12/16 10/12/16 05:55 13:25 15:47 WBC RBC Hgb Hct MCV MCH MCHC RDW Plt Count MPV Neut % (Auto) Lymph % (Auto) [place] % (Auto) Eos % (Auto) Baso % (Auto) Neut # Lymph # [place] # Eos # Baso # PT INR APTT Sodium Potassium Chloride Carbon Dioxide Anion Gap BUN Creatinine Est GFR ( Amer) Est GFR (Non-Af Amer) POC Glucose (mg/dL) 146 H 150 H Random Glucose Lactic Acid Calcium Total Bilirubin AST ALT Alkaline Phosphatase Total Protein Albumin Globulin Albumin/Globulin Ratio Procalcitonin 0.19 10/12/16 10/13/16 10/13/16 23:37 04:50 04:50 WBC 9.3 RBC 3.84 Hgb 9.4 L Hct 30.2 L MCV 78.5 L MCH 24.6 L MCHC 31.3 L RDW 22.9 H Plt Count 224 MPV 8.7 Neut % (Auto) 81.5 H Lymph % (Auto) 5.6 L [place] % (Auto) 11.7 H Eos % (Auto) 0.8 Baso % (Auto) 0.4 Neut # 7.6 H Lymph # 0.5 L [place] # 1.1 H Eos # 0.1 Baso # 0.0 PT 13.9 H INR 1.3 H APTT 28.0 D Sodium Potassium Chloride Carbon Dioxide Anion Gap BUN Creatinine Est GFR ( Amer) Est GFR (Non-Af Amer) POC Glucose (mg/dL) 136 H Random Glucose Lactic Acid Calcium Total Bilirubin AST ALT Alkaline Phosphatase Total Protein Albumin Globulin Albumin/Globulin Ratio Procalcitonin 10/13/16 10/13/16 10/13/16 04:50 04:50 06:30 WBC RBC Hgb Hct MCV MCH MCHC RDW Plt Count MPV Neut % (Auto) Lymph % (Auto) [place] % (Auto) Eos % (Auto) Baso % (Auto) Neut # Lymph # [place] # Eos # Baso # PT INR APTT Sodium 138 Potassium 4.5 Chloride 108 H Carbon Dioxide 23 Anion Gap 12 BUN 20 H Creatinine 1.5 H Est GFR ( Amer) 42 Est GFR (Non-Af Amer) 34 POC Glucose (mg/dL) 114 H Random Glucose 102 Lactic Acid 0.7 Calcium 8.6 Total Bilirubin 0.6 AST 22 ALT 25 Alkaline Phosphatase 66 Total Protein 6.2 L Albumin 3.1 L D Globulin 3.0 Albumin/Globulin Ratio 1.0 Procalcitonin Fingerstick Blood Sugar Results: 150 Review of Systems - Cardiovascular Cardiovascular: UNREMARKABLE - Gastrointestinal Gastrointestinal: UNREMARKABLE - Genitourinary Genitourinary: Dysuria, Hematuria - Musculoskeletal Musculoskeletal: UNREMARKABLE - Neurological Neurological: UNREMARKABLE - Psychiatric Psychiatric: UNREMARKABLE Critical Care Progress Note - Nutrition Nutrition: Nutrition Category Date Time Status NPO Diet [DIET] Diets 10/12/16 Breakfast Active Assessment/Plan - Assessment and Plan (Free Text) Plan: 71 yo ,f, PMhx/o chronic A Fib, Chronic back Pain, Cervical Cancer s/p partial hysterectomy "as per patient" presented to ED c/o hematuria,dysuria,fever, suprapubic pain.Patient admitted to floor for pyelonephritis and hematuria and last night after [employer] SUPER[employer]OR for Hypotension, patient was transferred to ICU Assessment/Plan 1) Pyelonephritis -CT abd w/o contrast: Hyperdense material in the left renal collecting system and pelvis with dilatation of the renal pelvis, that likely represents blood products. If no recent intervention, then consider neoplastic process. -Iv fluids - c/w Zosyn -Urologist consult appreciated: patient will have cystoscopy procedure today -Id consult appreciated: c/w antibiotic and wait for cultures -Blood cx no growth 24 hour, urine cx no growth so far 2) Sepsis -resolved SIRS + source of infection(pyelonephritis) -T 101.5, HR:108 WBC:15.5 -c/w IV fluids -c/w antibiotics -Lactic acid 1.2 trending down 0.7 -Ur cx neg,blood cx neg so far 3) Hypotension -resolved secondary to meds versus severe sepsis -pt on Torsenmide 20 mg. 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 8) DVT prophylaxis -SCD <Torrey Monroe M - Last Filed: 10/13/16 16:16> CCU Objective - Vital Signs / Intake & Output Vital Signs (Last 4 hours): Vital Signs Temp Pulse Resp BP Pulse Ox 10/13/16 15:56 99.6 F 84 24 154/95 H 98 Intake and Output (Last 8hrs): Intake & Output 10/13/16 10/13/16 10/13/16 06:59 14:59 22:59 Intake Total 113 648 8487 Output Total 150 Balance 582 767 4491 Weight 238 lb 3.2 oz Intake: IV 750 300 900 Intake, Piggyback 200 100 100 Oral 120 Output: Urine 150 Other: # Voids Urine, Voided 4 1 1 - Medications Active Medications: Active Medications Generic Name Dose Route Start Last Admin Trade Name Freq PRN Reason Stop Dose Admin Acetaminophen 975 mg 10/12/16 00:18 Tylenol 325mg Tab PO ONCE PRN Fever >100.4 F Acetaminophen 650 mg 10/12/16 06:10 10/12/16 06:14 Tylenol 325mg Tab PO 650 mg Q4 PRN Administration Fever >100.4 F Citalopram Hydrobromide 10 mg 10/12/16 09:00 10/13/16 10:53 Celexa PO 10 mg DAILY SUZANNA Administration Piperacillin Sod/Tazobactam 100 mls @ 100 mls/hr 10/12/16 04:00 10/13/16 16: 02 Sod 3.375 gm/ Sodium Chloride IVPB 100 mls/hr Q6 SUZANNA Administration Latanoprost 1 drop 10/12/16 22:00 10/12/16 21:11 Xalatan Opht OD 1 drop HS SUZANNA Administration Metoprolol Tartrate 100 mg 10/12/16 11:45 10/13/16 10:53 Lopressor PO 100 mg Q12H SUZANNA Administration Morphine Sulfate 2 mg 10/12/16 03:25 10/13/16 12:49 Morphine IVP 2 mg Q4 PRN Administration Pain, moderate (4-7) Oxycodone HCl 20 mg 10/12/16 09:00 10/13/16 10:56 Oxycontin Extended Release Tab PO 20 mg Q12 SUZANNA Administration Oxycodone HCl 5 mg 10/12/16 03:33 10/12/16 23:39 Oxycodone Immediate Release Tab PO 5 mg Q6 PRN Administration Pain, moderate (4-7) Oxycodone HCl 10 mg 10/12/16 04:15 10/13/16 16:01 Oxycodone Immediate Release Tab PO 10 mg Q6 PRN Administration Pain, severe (8-10) Timolol Maleate 1 drop 10/12/16 09:00 10/13/16 16:02 Timoptic 0.5% Ophth Soln OD 1 drop BID SUZANNA Administration - Patient Studies Lab Studies: Microbiology Studies 10/11/16 17:10 Urine Culture - Final Urine No Growth (<1,000 CFU/ML) Lab Studies 10/13/16 10/13/16 10/13/16 Range/Units 15:54 11:04 06:30 WBC (4.8-10.8) K/uL RBC (3.80-5.20) Mil/uL Hgb (12.0-16.0) g/dL Hct (34.0-47.0) % MCV (81.0-99.0) fl MCH (27.0-31.0) pg MCHC (33.0-37.0) g/dL RDW (11.5-14.5) % Plt Count (130-400) K/uL MPV (7.2-11.7) fl Neut % (Auto) (50.0-75.0) % Lymph % (Auto) (20.0-40.0) % [place] % (Auto) (0.0-10.0) % Eos % (Auto) (0.0-4.0) % Baso % (Auto) (0.0-2.0) % Neut # (1.8-7.0) K/uL Lymph # (1.0-4.3) K/uL [place] # (0.0-0.8) K/uL Eos # (0.0-0.7) K/uL Baso # (0.0-0.2) K/uL PT (9.8-13.1) Seconds INR (0.9-1.2) APTT (25.6-37.1) Seconds Sodium (132-148) mmol/l Potassium (3.6-5.0) MMOL/L Chloride (98-107) mmol/L Carbon Dioxide (22-30) mmol/L Anion Gap (10-20) BUN (7-17) mg/dl Creatinine (0.7-1.2) mg/dL Est GFR ( Amer) Est GFR (Non-Af Amer) POC Glucose (mg/dL) 121 H 98 114 H (65-110) mg/dL Random Glucose (65-105) mg/dL Lactic Acid (0.7-2.1) MMOL/L Calcium (8.4-10.2) mg/dL Total Bilirubin (0.2-1.3) mg/dl AST (14-36) U/L ALT (9-52) U/L Alkaline Phosphatase (38-126) U/L Total Protein (6.3-8.2) G/DL Albumin (3.5-5.0) g/dL Globulin (2.2-3.9) gm/dL Albumin/Globulin Ratio (1.0-2.1) 10/13/16 10/13/16 10/13/16 Range/Units 04:50 04:50 04:50 WBC (4.8-10.8) K/uL RBC (3.80-5.20) Mil/uL Hgb (12.0-16.0) g/dL Hct (34.0-47.0) % MCV (81.0-99.0) fl MCH (27.0-31.0) pg MCHC (33.0-37.0) g/dL RDW (11.5-14.5) % Plt Count (130-400) K/uL MPV (7.2-11.7) fl Neut % (Auto) (50.0-75.0) % Lymph % (Auto) (20.0-40.0) % [place] % (Auto) (0.0-10.0) % Eos % (Auto) (0.0-4.0) % Baso % (Auto) (0.0-2.0) % Neut # (1.8-7.0) K/uL Lymph # (1.0-4.3) K/uL [place] # (0.0-0.8) K/uL Eos # (0.0-0.7) K/uL Baso # (0.0-0.2) K/uL PT 13.9 H (9.8-13.1) Seconds INR 1.3 H (0.9-1.2) APTT 28.0 D (25.6-37.1) Seconds Sodium 138 (132-148) mmol/l Potassium 4.5 (3.6-5.0) MMOL/L Chloride 108 H (98-107) mmol/L Carbon Dioxide 23 (22-30) mmol/L Anion Gap 12 (10-20) BUN 20 H (7-17) mg/dl Creatinine 1.5 H (0.7-1.2) mg/dL Est GFR ( Amer) 42 Est GFR (Non-Af Amer) 34 POC Glucose (mg/dL) (65-110) mg/dL Random Glucose 102 (65-105) mg/dL Lactic Acid 0.7 (0.7-2.1) MMOL/L Calcium 8.6 (8.4-10.2) mg/dL Total Bilirubin 0.6 (0.2-1.3) mg/dl AST 22 (14-36) U/L ALT 25 (9-52) U/L Alkaline Phosphatase 66 (38-126) U/L Total Protein 6.2 L (6.3-8.2) G/DL Albumin 3.1 L D (3.5-5.0) g/dL Globulin 3.0 (2.2-3.9) gm/dL Albumin/Globulin Ratio 1.0 (1.0-2.1) 10/13/16 10/12/16 Range/Units 04:50 23:37 WBC 9.3 (4.8-10.8) K/uL RBC 3.84 (3.80-5.20) Mil/uL Hgb 9.4 L (12.0-16.0) g/dL Hct 30.2 L (34.0-47.0) % MCV 78.5 L (81.0-99.0) fl MCH 24.6 L (27.0-31.0) pg MCHC 31.3 L (33.0-37.0) g/dL RDW 22.9 H (11.5-14.5) % Plt Count 224 (130-400) K/uL MPV 8.7 (7.2-11.7) fl Neut % (Auto) 81.5 H (50.0-75.0) % Lymph % (Auto) 5.6 L (20.0-40.0) % [place] % (Auto) 11.7 H (0.0-10.0) % Eos % (Auto) 0.8 (0.0-4.0) % Baso % (Auto) 0.4 (0.0-2.0) % Neut # 7.6 H (1.8-7.0) K/uL Lymph # 0.5 L (1.0-4.3) K/uL [place] # 1.1 H (0.0-0.8) K/uL Eos # 0.1 (0.0-0.7) K/uL Baso # 0.0 (0.0-0.2) K/uL PT (9.8-13.1) Seconds INR (0.9-1.2) APTT (25.6-37.1) Seconds Sodium (132-148) mmol/l Potassium (3.6-5.0) MMOL/L Chloride (98-107) mmol/L Carbon Dioxide (22-30) mmol/L Anion Gap (10-20) BUN (7-17) mg/dl Creatinine (0.7-1.2) mg/dL Est GFR ( Amer) Est GFR (Non-Af Amer) POC Glucose (mg/dL) 136 H (65-110) mg/dL Random Glucose (65-105) mg/dL Lactic Acid (0.7-2.1) MMOL/L Calcium (8.4-10.2) mg/dL Total Bilirubin (0.2-1.3) mg/dl AST (14-36) U/L ALT (9-52) U/L Alkaline Phosphatase (38-126) U/L Total Protein (6.3-8.2) G/DL Albumin (3.5-5.0) g/dL Globulin (2.2-3.9) gm/dL Albumin/Globulin Ratio (1.0-2.1) Laboratory Results - last 24 hr 10/12/16 10/13/16 10/13/16 23:37 04:50 04:50 WBC 9.3 RBC 3.84 Hgb 9.4 L Hct 30.2 L MCV 78.5 L MCH 24.6 L MCHC 31.3 L RDW 22.9 H Plt Count 224 MPV 8.7 Neut % (Auto) 81.5 H Lymph % (Auto) 5.6 L [place] % (Auto) 11.7 H Eos % (Auto) 0.8 Baso % (Auto) 0.4 Neut # 7.6 H Lymph # 0.5 L [place] # 1.1 H Eos # 0.1 Baso # 0.0 PT 13.9 H INR 1.3 H APTT 28.0 D Sodium Potassium Chloride Carbon Dioxide Anion Gap BUN Creatinine Est GFR ( Amer) Est GFR (Non-Af Amer) POC Glucose (mg/dL) 136 H Random Glucose Lactic Acid Calcium Total Bilirubin AST ALT Alkaline Phosphatase Total Protein Albumin Globulin Albumin/Globulin Ratio 10/13/16 10/13/16 10/13/16 04:50 04:50 06:30 WBC RBC Hgb Hct MCV MCH MCHC RDW Plt Count MPV Neut % (Auto) Lymph % (Auto) [place] % (Auto) Eos % (Auto) Baso % (Auto) Neut # Lymph # [place] # Eos # Baso # PT INR APTT Sodium 138 Potassium 4.5 Chloride 108 H Carbon Dioxide 23 Anion Gap 12 BUN 20 H Creatinine 1.5 H Est GFR ( Amer) 42 Est GFR (Non-Af Amer) 34 POC Glucose (mg/dL) 114 H Random Glucose 102 Lactic Acid 0.7 Calcium 8.6 Total Bilirubin 0.6 AST 22 ALT 25 Alkaline Phosphatase 66 Total Protein 6.2 L Albumin 3.1 L D Globulin 3.0 Albumin/Globulin Ratio 1.0 10/13/16 10/13/16 11:04 15:54 WBC RBC Hgb Hct MCV MCH MCHC RDW Plt Count MPV Neut % (Auto) Lymph % (Auto) [place] % (Auto) Eos % (Auto) Baso % (Auto) Neut # Lymph # [place] # Eos # Baso # PT INR APTT Sodium Potassium Chloride Carbon Dioxide Anion Gap BUN Creatinine Est GFR ( Amer) Est GFR (Non-Af Amer) POC Glucose (mg/dL) 98 121 H Random Glucose Lactic Acid Calcium Total Bilirubin AST ALT Alkaline Phosphatase Total Protein Albumin Globulin Albumin/Globulin Ratio Critical Care Progress Note - Nutrition Nutrition: Nutrition Category Date Time Status Regular Diet [DIET] Diets 10/13/16 Lunch Active Attending/Attestation - Attestation I have personally seen and examined this patient.: Yes I have fully participated in the care of the patient.: Yes I have reviewed all pertinent clinical information: Yes Notes (Text): 10/13/16 16:14 Today: Thursday, October 13, 2016 The patient was Seen/interviewed and examined by me at the bedside during ICU round, Medical records reviewed and Management issues were discussed and formulated with the house staff. I have reviewed all the relevant clinical, laboratory, hemodynamic, radiographic data and medications I concur with resident's assessment and plan of care as transcribed in Dr. Wesley Note.
[2016-10-13] MEDS: HYDROmorphone 0.5 mg/0.5 ml ISec IVP PRN ×2 (08:50→09:05)
--- NOTE | 2016-10-13 08:50 | CON ---
ICU COMPREHENSIVE CONSULTATION DATE: REASON FOR CONSULTATION: Gross hematuria, urinary tract infection and question of the exophytic renal lesion. BRIEF HISTORY: The patient is a 71-year-old white female status post partial hysterectomy 28 years ago for cervical cancer and has been cancer free since her surgery. She received no chemotherapy or radiation therapy. The patient presented with a few day history of gross hematuria with lower abdominal discomfort and pain associated with some intermittent dysuria requiring her to come to [facility] ER. The patient was given some morphine for pain and in the ER had a drop in blood pressure and had to be admitted to the ICU because of this problem. A CT of the abdominal and pelvis done on 10/11/2016, showed unremarkable and unenhanced appearance of her adrenals. The right kidney showed a stable sub centimeter upper pole exophytic lobulated hypodensity containing calcifications. There was no nephrolithiasis or hydronephrosis and the left kidney showed no hydronephrosis identified. Multiple cyst noted and there is moderate perinephric stranding. There was dilatation of the collecting system and renal pelvis with hyperdense fluid that demonstrates attenuation of blood and the ureters were not dilated. Bladder was incompletely distended and the uterus appears surgically absent. The diagnostic impression for this CAT scan was hypodense material in the left renal collecting system and pelvis with dilatation of the renal pelvis that likely represents blood products and to correlate clinically with history of recent intervention if no intervention then considered neoplastic process. The patient is also status post renal ESWL for kidney stones more than 10 years ago at [facility] in [place], [place]. Currently, the patient's GFR is low at around 40 on admission in the ER and is now 34 today on 10/12/2016 indicating that the patient cannot be given IV contrast at this time. BUN and creatinine are currently 19 and 1.5 respectively. The patient is currently on blood thinning medication at this time. As discussed with the patient and patient's son today at the bedside and also the ICU interventionalist, this patient will have to be currently followed with serial CAT scans without contrast and eventually if her kidney function improves where we get the GFR above 45, we may be able to repeat CAT scan with IV contrast to see if there is any enhancement. Patient may need a cystocopy with left RPG and possible left ureteroscopy. PAST MEDICAL HISTORY: She has chronic atrial fibrillation and this is probably the reason for her blood thinning medication. She has a history of chronic back pain, cervical cancer and kidney stones. ALLERGIES: SHE HAS NO KNOWN ALLERGIES TO ANY MEDICATIONS. SOCIAL HISTORY: She has no history of any tobacco use. She is a very rare social drinker. She does have a aunt who of lung cancer. PHYSICAL EXAMINATION: GENERAL: The patient is well-developed, well-nourished, slightly obese white female. She is alert. She is oriented. HEENT: Grossly within normal limits. NECK: Supple. Thyroid not palpable. ABDOMEN: Currently soft, nondistended and nontender. No CVA tenderness and currently the patient has minimal lower suprapubic tenderness. LABORATORY EVALUATION: On 10/12/2016, shows a WBC count of 12.3, which is down from her admitting WBC count 13.4, hemoglobin is 10.1, hematocrit 33.3 and platelet count was 254,000 indicating a moderate anemia. Her coag profile shows PT of 14.0, which is slightly elevated and INR of 1.4, which also slightly elevated and PTT is 33.1. Her chem profile today 10/12/2016, shows a sodium of 138, potassium 4.4, chloride 106, CO2 of 26, BUN and creatinine of 19 and 1.5 respectively with a GFR was 34 and random glucose of 96 with calcium of 8.6 indicating chronic renal disease, stage III. Her urinalysis on 10/11/2016 showed color was prince, the clarity was turbid, pH was 5.0, specific gravity 1.025, protein was 100, glucose negative ketones, negative blood was large. Nitrates was negative. Bilirubin was negative. Urobilinogen was 0.2 to 1.0. Leukocyte esterase was small. There were 1074 RBC's with moderate WBC clumps and 50 WBC's with occasional bacteria per high power field indicating a possible urinary tract infection. DIAGNOSTIC IMPRESSION: 1. Gross hematuria. 2. Possible urinary tract infection. 3. History of kidney stones. 4. Blood clot products in the left renal pelvis with a pole left collecting system. No evidences of renal calculi or ureteral calculi at this time. PLAN: To treat her for urinary tract infection with IV antibiotics and to see if the blood in urine dissipates with IV antibiotics and get a follow up CT in few weeks after the patient is completely stable. This follow up CT can be done with IV contrast if the patient's kidney function improves where the GFR is above 45. Lokesh Rose MD MTDBelia
[2016-10-13] MEDS ORDERED: Midazolam 2 MG/2 ML VIAL IV ONE (08:51)
[2016-10-13] MEDS: oxyCODONE 20 mg ER Tab (oxyCONTIN) PO SCH ×2 (10:56→20:28)
--- NOTE | 2016-10-13 13:55 | CP.PCM.PN ---
Subjective - Date & Time of Evaluation Date of Evaluation: 10/13/16 Time of Evaluation: 07:00 - Subjective Subjective: hematuria/dysuria afebrile s/p cysto Objective - Vital Signs/Intake and Output Vital Signs (last 24 hours): Temp Pulse Resp BP Pulse Ox 97.8 F 89 13 151/63 H 95 10/13/16 12:00 10/13/16 12:00 10/13/16 12:00 10/13/16 12:00 10/13/16 12:00 Intake and Output: 10/13/16 10/13/16 06:59 18:59 Intake Total 950 400 Output Total 150 Balance 950 250 - Medications Medications: Current Medications Acetaminophen (Tylenol 325mg Tab) 975 mg PO ONCE PRN PRN Reason: Fever >100.4 F Acetaminophen (Tylenol 325mg Tab) 650 mg PO Q4 PRN PRN Reason: Fever >100.4 F Last Admin: 10/12/16 06:14 Dose: 650 mg Citalopram Hydrobromide (Celexa) 10 mg PO DAILY [facility] Last Admin: 10/13/16 10:53 Dose: 10 mg Piperacillin Sod/Tazobactam (Sod 3.375 gm/ Sodium Chloride) 100 mls @ 100 mls/ hr IVPB Q6 [facility] Last Admin: 10/13/16 10:57 Dose: 100 mls/hr Latanoprost (Xalatan Opht) 1 drop OD HS [facility] Last Admin: 10/12/16 21:11 Dose: 1 drop Metoprolol Tartrate (Lopressor) 100 mg PO Q12H [facility] Last Admin: 10/13/16 10:53 Dose: 100 mg Morphine Sulfate (Morphine) 2 mg IVP Q4 PRN PRN Reason: Pain, moderate (4-7) Last Admin: 10/13/16 12:49 Dose: 2 mg Oxycodone HCl (Oxycontin Extended Release Tab) 20 mg PO Q12 [facility] Last Admin: 10/13/16 10:56 Dose: 20 mg Oxycodone HCl (Oxycodone Immediate Release Tab) 5 mg PO Q6 PRN PRN Reason: Pain, moderate (4-7) Last Admin: 10/12/16 23:39 Dose: 5 mg Oxycodone HCl (Oxycodone Immediate Release Tab) 10 mg PO Q6 PRN PRN Reason: Pain, severe (8-10) Timolol Maleate (Timoptic 0.5% Ophth Soln) 1 drop OD BID [facility] Last Admin: 10/13/16 10:56 Dose: 1 drop - Labs Labs: 10/13/16 04:50 10/13/16 04:50 PT 13.9 Seconds (9.8-13.1) H 10/13/16 04:50 INR 1.3 (0.9-1.2) H 10/13/16 04:50 APTT 28.0 Seconds (25.6-37.1) D 10/13/16 04:50 - Constitutional Appears: Non-toxic, Chronically Ill - Head Exam Head Exam: NORMOCEPHALIC - Eye Exam Eye Exam: PERRL - ENT Exam ENT Exam: Mucous Membranes Dry - Neck Exam Neck Exam: absent: Lymphadenopathy - Respiratory Exam Respiratory Exam: Decreased Breath Sounds - Cardiovascular Exam Cardiovascular Exam: REGULAR RHYTHM - GI/Abdominal Exam GI & Abdominal Exam: Distended, Soft - Rectal Exam Rectal Exam: Deferred - Exam Exam: NORMAL INSPECTION - Back Exam Back Exam: absent: CVA tenderness (L), CVA tenderness (R) - Neurological Exam Neurological Exam: Alert, Awake Assessment and Plan (1) A-fib Status: Acute (2) Pyelonephritis Status: Acute (3) Anemia Status: Acute
--- NOTE | 2016-10-13 15:08 | CP.PCM.PN ---
Subjective - Date & Time of Evaluation Date of Evaluation: 10/13/16 Time of Evaluation: 14:00 - Subjective Subjective: NO CHEST PAIN, SOB OR PALPITATIONS Objective - Vital Signs/Intake and Output Vital Signs (last 24 hours): Temp Pulse Resp BP Pulse Ox 97.8 F 89 13 151/63 H 95 10/13/16 12:00 10/13/16 12:00 10/13/16 12:00 10/13/16 12:00 10/13/16 12:00 Intake and Output: 10/13/16 10/13/16 06:59 18:59 Intake Total 950 400 Output Total 150 Balance 950 250 - Medications Medications: Current Medications Acetaminophen (Tylenol 325mg Tab) 975 mg PO ONCE PRN PRN Reason: Fever >100.4 F Acetaminophen (Tylenol 325mg Tab) 650 mg PO Q4 PRN PRN Reason: Fever >100.4 F Last Admin: 10/12/16 06:14 Dose: 650 mg Citalopram Hydrobromide (Celexa) 10 mg PO DAILY [facility] Last Admin: 10/13/16 10:53 Dose: 10 mg Piperacillin Sod/Tazobactam (Sod 3.375 gm/ Sodium Chloride) 100 mls @ 100 mls/ hr IVPB Q6 [facility] Last Admin: 10/13/16 10:57 Dose: 100 mls/hr Latanoprost (Xalatan Opht) 1 drop OD HS [facility] Last Admin: 10/12/16 21:11 Dose: 1 drop Metoprolol Tartrate (Lopressor) 100 mg PO Q12H [facility] Last Admin: 10/13/16 10:53 Dose: 100 mg Morphine Sulfate (Morphine) 2 mg IVP Q4 PRN PRN Reason: Pain, moderate (4-7) Last Admin: 10/13/16 12:49 Dose: 2 mg Oxycodone HCl (Oxycontin Extended Release Tab) 20 mg PO Q12 [facility] Last Admin: 10/13/16 10:56 Dose: 20 mg Oxycodone HCl (Oxycodone Immediate Release Tab) 5 mg PO Q6 PRN PRN Reason: Pain, moderate (4-7) Last Admin: 10/12/16 23:39 Dose: 5 mg Oxycodone HCl (Oxycodone Immediate Release Tab) 10 mg PO Q6 PRN PRN Reason: Pain, severe (8-10) Timolol Maleate (Timoptic 0.5% Ophth Soln) 1 drop OD BID [facility] Last Admin: 10/13/16 10:56 Dose: 1 drop - Labs Labs: 10/13/16 04:50 10/13/16 04:50 PT 13.9 Seconds (9.8-13.1) H 10/13/16 04:50 INR 1.3 (0.9-1.2) H 10/13/16 04:50 APTT 28.0 Seconds (25.6-37.1) D 10/13/16 04:50 - Respiratory Exam Respiratory Exam: Clear to Ausculation Bilateral - Cardiovascular Exam Cardiovascular Exam: Irregular Rhythm, +S1, +S2 - Additional Findings 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
[2016-10-13] MEDS: oxyCODONE 5 mg Immediate Release Tab PO PRN ×2 (16:01→23:57)
--- NOTE | 2016-10-13 17:41 | CP.PCM.PN ---
Subjective - Date & Time of Evaluation Date of Evaluation: 10/13/16 Time of Evaluation: 22:22 - Subjective Subjective: Cystoscopy this AM Objective - Vital Signs/Intake and Output Vital Signs (last 24 hours): Temp Pulse Resp BP Pulse Ox 99.6 F 84 24 154/95 H 98 10/13/16 15:56 10/13/16 15:56 10/13/16 15:56 10/13/16 15:56 10/13/16 15:56 Intake and Output: 10/13/16 10/13/16 06:59 18:59 Intake Total 950 1520 Output Total 150 Balance 950 1370 - Medications Medications: Current Medications Acetaminophen (Tylenol 325mg Tab) 975 mg PO ONCE PRN PRN Reason: Fever >100.4 F Acetaminophen (Tylenol 325mg Tab) 650 mg PO Q4 PRN PRN Reason: Fever >100.4 F Last Admin: 10/12/16 06:14 Dose: 650 mg Citalopram Hydrobromide (Celexa) 10 mg PO DAILY [facility] Last Admin: 10/13/16 10:53 Dose: 10 mg Piperacillin Sod/Tazobactam (Sod 3.375 gm/ Sodium Chloride) 100 mls @ 100 mls/ hr IVPB Q6 [facility] Last Admin: 10/13/16 16:02 Dose: 100 mls/hr Latanoprost (Xalatan Opht) 1 drop OD HS [facility] Last Admin: 10/12/16 21:11 Dose: 1 drop Metoprolol Tartrate (Lopressor) 100 mg PO Q12H [facility] Last Admin: 10/13/16 10:53 Dose: 100 mg Morphine Sulfate (Morphine) 2 mg IVP Q4 PRN PRN Reason: Pain, moderate (4-7) Last Admin: 10/13/16 12:49 Dose: 2 mg Oxycodone HCl (Oxycontin Extended Release Tab) 20 mg PO Q12 [facility] Last Admin: 10/13/16 10:56 Dose: 20 mg Oxycodone HCl (Oxycodone Immediate Release Tab) 5 mg PO Q6 PRN PRN Reason: Pain, moderate (4-7) Last Admin: 10/12/16 23:39 Dose: 5 mg Oxycodone HCl (Oxycodone Immediate Release Tab) 10 mg PO Q6 PRN PRN Reason: Pain, severe (8-10) Last Admin: 10/13/16 16:01 Dose: 10 mg Timolol Maleate (Timoptic 0.5% Ophth Soln) 1 drop OD BID [facility] Last Admin: 10/13/16 16:02 Dose: 1 drop - Labs Labs: 10/13/16 04:50 10/13/16 04:50 PT 13.9 Seconds (9.8-13.1) H 10/13/16 04:50 INR 1.3 (0.9-1.2) H 10/13/16 04:50 APTT 28.0 Seconds (25.6-37.1) D 10/13/16 04:50 - Respiratory Exam Respiratory Exam: NORMAL BREATHING PATTERN - Cardiovascular Exam Cardiovascular Exam: REGULAR RHYTHM - GI/Abdominal Exam GI & Abdominal Exam: Normal Bowel Sounds Assessment and Plan - Assessment and Plan (Free Text) Assessment: Hematuria/ Pyelonephritis Urology Cystoscopy this AM ID [id number] Cuktures Hypotension etiol? Sepsis vs Narcotics Heart dx Afib Cardiology CKD Nephrology Chronic pain Anxiety Pain management
--- NOTE | 2016-10-13 19:43 | OP ---
PROCEDURE DATE: 10/13/2016 PREOPERATIVE DIAGNOSIS: Gross hematuria. POSTOPERATIVE DIAGNOSIS: Gross hematuria aminating from the left renal unit. PROCEDURE: Cystoscopy, left retrograde pyelogram, left ureteroscopy. SURGEON: Dr. Khloe Healy. DESCRIPTION OF PROCEDURE: The patient placed on the operating table in the dorsal lithotomy position. The area of the groin was draped and prepped in a sterile manner. Initially, under video guidance inserted a cystoscope into the bladder, evaluated the bladder itself, there appear to be diffuse cystitis throughout the bladder, but no active bleeding, just immediately prior to the procedure, I gave the patient 20 mg of Lasix IV to encourage urine outflow, I was able to see efflux from both ureteral orifices, from the right side the efflux is clear. From the left side, the urine outflow was significantly blood tinged. I then inserted an open-ended ureteral catheter to the area of renal pelvis and I took the washing from that area for urine cytology, so this was a direct sample from the renal pelvis on the left side via a open-ended ureteral catheter that specimen was sent for cytology. Following this, over that existing open-ended ureteral catheter, I then inserted a sensor wire, removed the open-ended ureteral catheter and then over the sensor wire, I did a visual direct ureteroscopy. The entire ureter appears to be normal and there is no lesions within the ureter, no suspect stone or pathology noted in the course and caliber of the ureter on the left. When I got to the level of renal pelvis, there are chunks of dried blood clot that are floating within the renal pelvis, tried to look all around this area of the renal pelvis, I was unable to see any tissue that appear to be suspicious for tumor. It appears to be just at this point, free floating small clots within the renal pelvis, not being able to see anything else. In the retrograde, you could see the filling defects of the blood clots, but no other pathology could be identified, so at this time, the ureteroscope was removed, we awaited the report of the cytology for microscopic confirmation. The patient then was taken from the operating room in good condition, there was no significant blood loss from the procedure, the patient again left the operating room in stable and in good condition. Khloe Healy MD [facility] # [id number]
[2016-10-13] MEDS: Latanoprost 0.005% Opht SOUTION OD SCH (23:00)
[2016-10-14] MEDS: Piperacillin/Tazobact 3.375 GM in Sodium Chloride 0.9% 100 ML IVPB SCH ×4 (03:57→22:55)
[2016-10-14 06:30] LABS: HEMATOCRIT 29.2 % (34.0-47.0); MEAN CELL VOLUME 77.7 fl (81.0-99.0); MEAN CORPUSCULAR HEMOGLOBIN 24.9 pg (27.0-31.0); RED CELL DISTRIBUTION WIDTH 22.9 % (11.5-14.5); WHITE BLOOD COUNT 7.5 K/uL (4.8-10.8)
[2016-10-14 06:42] LABS: ALB/GLOB RATIO 1.1 (1.0-2.1); BILIRUBIN,TOTAL 0.4 mg/dl (0.2-1.3); CALCIUM 8.8 mg/dL (8.4-10.2); POTASSIUM 4.2 MMOL/L (3.6-5.0); TOTAL PROTEIN 6.1 G/DL (6.3-8.2)
--- NOTE | 2016-10-14 07:15 | CP.CCUPN ---
CCU Subjective - Physician Review Subjective (Free Text): 10/14/16 7:15 am Patient seen and examined bedside AAOx3. Able to ambulate with cane. Patient still reports dysuria and hematuria. Afebrile x 48 hours. S/P cystoscopy yesterday. Patient denies N/V/D, abd pain. tolerating regular diet. will be transferred to floor today CCU Objective - Vital Signs / Intake & Output Vital Signs (Last 4 hours): Vital Signs Temp Pulse Resp BP 10/14/16 06:00 97 H 21 139/54 L 10/14/16 04:00 98.6 F 76 10 L 104/73 Intake and Output (Last 8hrs): Intake & Output 10/13/16 10/14/16 10/14/16 22:59 06:59 14:59 Intake Total 1120 Balance 1120 Intake: IV 900 Intake, Piggyback 100 Oral 120 Other: # Voids Urine, Voided 1 - Physical Exam Head: Positive for: Atraumatic, Normocephalic Conjunctiva: Positive for: Normal Mouth: Positive for: Moist Mucous Membranes Respiratory/Chest: Positive for: Clear to Auscultation. Negative for: Wheezes, Rales Cardiovascular: Positive for: Irregular Rhythm. Negative for: Murmurs Abdomen: Positive for: Normal Bowel Sounds. Negative for: Tenderness, Distention, Rebound, Guarding Genitourinary/Pelvic Exam: Positive for: Normal External Genitalia, Other. Negative for: Vaginal Discharge, Vaginal Bleeding, Vaginal Lesions, Adenexal Tenderness Upper Extremity: Positive for: Normal Inspection Lower Extremity: Positive for: Swelling (pedal edema 2+). Negative for: CALF TENDERNESS Neurological: Positive for: Speech Normal, Motor Func Grossly Intact Skin: Positive for: Warm, Normal Color Psychiatric: Positive for: Alert, Oriented x 3, Normal Mood - Medications Active Medications: Active Medications Generic Name Dose Route Start Last Admin Trade Name Freq PRN Reason Stop Dose Admin Acetaminophen 975 mg 10/12/16 00:18 Tylenol 325mg Tab PO ONCE PRN Fever >100.4 F Acetaminophen 650 mg 10/12/16 06:10 10/12/16 06:14 Tylenol 325mg Tab PO 650 mg Q4 PRN Administration Fever >100.4 F Citalopram Hydrobromide 10 mg 10/12/16 09:00 10/13/16 10:53 Celexa PO 10 mg DAILY [facility] Administration Piperacillin Sod/Tazobactam 100 mls @ 100 mls/hr 10/12/16 04:00 10/14/16 03: 57 Sod 3.375 gm/ Sodium Chloride IVPB 100 mls/hr Q6 [facility] Administration Latanoprost 1 drop 10/12/16 22:00 10/13/16 23:00 Xalatan Opht OD 1 drop HS [facility] Administration Metoprolol Tartrate 100 mg 10/12/16 11:45 10/13/16 23:03 Lopressor PO 100 mg Q12H [facility] Administration Morphine Sulfate 2 mg 10/12/16 03:25 10/13/16 12:49 Morphine IVP 2 mg Q4 PRN Administration Pain, moderate (4-7) Oxycodone HCl 20 mg 10/12/16 09:00 10/13/16 20:28 Oxycontin Extended Release Tab PO 20 mg Q12 [facility] Administration Oxycodone HCl 5 mg 10/12/16 03:33 10/12/16 23:39 Oxycodone Immediate Release Tab PO 5 mg Q6 PRN Administration Pain, moderate (4-7) Oxycodone HCl 10 mg 10/12/16 04:15 10/13/16 23:57 Oxycodone Immediate Release Tab PO 10 mg Q6 PRN Administration Pain, severe (8-10) Timolol Maleate 1 drop 10/12/16 09:00 10/13/16 16:02 Timoptic 0.5% Ophth Soln OD 1 drop BID [facility] Administration - Patient Studies Lab Studies: Microbiology Studies 10/11/16 17:10 Urine Culture - Final Urine No Growth (<1,000 CFU/ML) Lab Studies 10/14/16 10/14/16 10/14/16 Range/Units 05:07 05:00 05:00 WBC 7.5 (4.8-10.8) K/uL RBC 3.75 L (3.80-5.20) Mil/uL Hgb 9.3 L (12.0-16.0) g/dL Hct 29.2 L (34.0-47.0) % MCV 77.7 L (81.0-99.0) fl MCH 24.9 L (27.0-31.0) pg MCHC 32.0 L (33.0-37.0) g/dL RDW 22.9 H (11.5-14.5) % Plt Count 222 (130-400) K/uL Sodium 140 (132-148) mmol/l Potassium 4.2 (3.6-5.0) MMOL/L Chloride 108 H (98-107) mmol/L Carbon Dioxide 24 (22-30) mmol/L Anion Gap 12 (10-20) BUN 17 (7-17) mg/dl Creatinine 1.4 H (0.7-1.2) mg/dL Est GFR ( Amer) 45 Est GFR (Non-Af Amer) 37 POC Glucose (mg/dL) 108 (65-110) mg/dL Random Glucose 107 H (65-105) mg/dL Calcium 8.8 (8.4-10.2) mg/dL Total Bilirubin 0.4 (0.2-1.3) mg/dl AST 17 (14-36) U/L ALT 30 (9-52) U/L Alkaline Phosphatase 67 (38-126) U/L Total Protein 6.1 L (6.3-8.2) G/DL Albumin 3.2 L (3.5-5.0) g/dL Globulin 2.9 (2.2-3.9) gm/dL Albumin/Globulin Ratio 1.1 (1.0-2.1) 10/13/16 10/13/16 10/13/16 Range/Units 20:48 15:54 11:04 WBC (4.8-10.8) K/uL RBC (3.80-5.20) Mil/uL Hgb (12.0-16.0) g/dL Hct (34.0-47.0) % MCV (81.0-99.0) fl MCH (27.0-31.0) pg MCHC (33.0-37.0) g/dL RDW (11.5-14.5) % Plt Count (130-400) K/uL Sodium (132-148) mmol/l Potassium (3.6-5.0) MMOL/L Chloride (98-107) mmol/L Carbon Dioxide (22-30) mmol/L Anion Gap (10-20) BUN (7-17) mg/dl Creatinine (0.7-1.2) mg/dL Est GFR ( Amer) Est GFR (Non-Af Amer) POC Glucose (mg/dL) 156 H 121 H 98 (65-110) mg/dL Random Glucose (65-105) mg/dL Calcium (8.4-10.2) mg/dL Total Bilirubin (0.2-1.3) mg/dl AST (14-36) U/L ALT (9-52) U/L Alkaline Phosphatase (38-126) U/L Total Protein (6.3-8.2) G/DL Albumin (3.5-5.0) g/dL Globulin (2.2-3.9) gm/dL Albumin/Globulin Ratio (1.0-2.1) Laboratory Results - last 24 hr 10/13/16 10/13/16 10/13/16 11:04 15:54 20:48 WBC RBC Hgb Hct MCV MCH MCHC RDW Plt Count Sodium Potassium Chloride Carbon Dioxide Anion Gap BUN Creatinine Est GFR ( Amer) Est GFR (Non-Af Amer) POC Glucose (mg/dL) 98 121 H 156 H Random Glucose Calcium Total Bilirubin AST ALT Alkaline Phosphatase Total Protein Albumin Globulin Albumin/Globulin Ratio 10/14/16 10/14/16 10/14/16 05:00 05:00 05:07 WBC 7.5 RBC 3.75 L Hgb 9.3 L Hct 29.2 L MCV 77.7 L MCH 24.9 L MCHC 32.0 L RDW 22.9 H Plt Count 222 Sodium 140 Potassium 4.2 Chloride 108 H Carbon Dioxide 24 Anion Gap 12 BUN 17 Creatinine 1.4 H Est GFR ( Amer) 45 Est GFR (Non-Af Amer) 37 POC Glucose (mg/dL) 108 Random Glucose 107 H Calcium 8.8 Total Bilirubin 0.4 AST 17 ALT 30 Alkaline Phosphatase 67 Total Protein 6.1 L Albumin 3.2 L Globulin 2.9 Albumin/Globulin Ratio 1.1 Fingerstick Blood Sugar Results: 156 Review of Systems - Cardiovascular Cardiovascular: UNREMARKABLE - Respiratory Respiratory: UNREMARKABLE - Gastrointestinal Gastrointestinal: UNREMARKABLE - Genitourinary Genitourinary: Dysuria, Hematuria - Musculoskeletal Musculoskeletal: UNREMARKABLE Critical Care Progress Note - Nutrition Nutrition: Nutrition Category Date Time Status Regular Diet [DIET] Diets 10/13/16 Lunch Active Assessment/Plan - Assessment and Plan (Free Text) Plan: 71 yo ,f, PMhx/o chronic A Fib, Chronic back Pain, Cervical Cancer s/p partial hysterectomy "as per patient" presented to ED c/o hematuria,dysuria,fever, suprapubic pain.Patient admitted to floor for pyelonephritis and hematuria and 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 If no recent intervention, then consider neoplastic process. - c/w Zosyn -Urologist consult appreciated: patient had cystoscopy yesterday -Id consult appreciated -Blood cx no growth 24 hour, urine cx no growth so far 2) Sepsis -resolved SIRS + source of infection(pyelonephritis) -T 101.5, HR:108 WBC:15.5 -c/w antibiotics -Lactic acid 1.2 trending down 0.7 -Ur cx neg,blood cx neg so far 3) Hypotension -resolved secondary to meds versus severe sepsis -pt on Torsenmide 20 mg. 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
[2016-10-14] MEDS: oxyCODONE 20 mg ER Tab (oxyCONTIN) PO SCH ×2 (08:24→21:31)
--- NOTE | 2016-10-14 10:08 | CP.PCM.PN ---
Subjective - Date & Time of Evaluation Date of Evaluation: 10/14/16 Time of Evaluation: 08:00 - Subjective Subjective: NO CHEST PAIN OR SOB Objective - Vital Signs/Intake and Output Vital Signs (last 24 hours): Temp Pulse Resp BP Pulse Ox 98.6 F 90 21 154/97 H 99 10/14/16 08:00 10/14/16 08:00 10/14/16 06:00 10/14/16 08:00 10/14/16 08:00 - Medications Medications: Current Medications Acetaminophen (Tylenol 325mg Tab) 975 mg PO ONCE PRN PRN Reason: Fever >100.4 F Acetaminophen (Tylenol 325mg Tab) 650 mg PO Q4 PRN PRN Reason: Fever >100.4 F Last Admin: 10/12/16 06:14 Dose: 650 mg Citalopram Hydrobromide (Celexa) 10 mg PO DAILY [facility] Last Admin: 10/14/16 08:24 Dose: 10 mg Piperacillin Sod/Tazobactam (Sod 3.375 gm/ Sodium Chloride) 100 mls @ 100 mls/ hr IVPB Q6 [facility] Last Admin: 10/14/16 03:57 Dose: 100 mls/hr Latanoprost (Xalatan Opht) 1 drop OD HS [facility] Last Admin: 10/13/16 23:00 Dose: 1 drop Metoprolol Tartrate (Lopressor) 100 mg PO Q12H [facility] Last Admin: 10/13/16 23:03 Dose: 100 mg Morphine Sulfate (Morphine) 2 mg IVP Q4 PRN PRN Reason: Pain, moderate (4-7) Last Admin: 10/13/16 12:49 Dose: 2 mg Oxycodone HCl (Oxycontin Extended Release Tab) 20 mg PO Q12 [facility] Last Admin: 10/14/16 08:24 Dose: 20 mg Oxycodone HCl (Oxycodone Immediate Release Tab) 5 mg PO Q6 PRN PRN Reason: Pain, moderate (4-7) Last Admin: 10/12/16 23:39 Dose: 5 mg Oxycodone HCl (Oxycodone Immediate Release Tab) 10 mg PO Q6 PRN PRN Reason: Pain, severe (8-10) Last Admin: 10/13/16 23:57 Dose: 10 mg Timolol Maleate (Timoptic 0.5% Ophth Soln) 1 drop OD BID [facility] Last Admin: 10/14/16 08:24 Dose: 1 drop - Labs Labs: 10/14/16 05:00 10/14/16 05:00 PT 13.9 Seconds (9.8-13.1) H 10/13/16 04:50 INR 1.3 (0.9-1.2) H 10/13/16 04:50 APTT 28.0 Seconds (25.6-37.1) D 10/13/16 04:50 - Respiratory Exam Respiratory Exam: Clear to Ausculation Bilateral - Cardiovascular Exam Cardiovascular Exam: Irregular Rhythm, +S1, +S2 - Extremities Exam Extremities Exam: Normal Inspection - Additional Findings 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
--- NOTE | 2016-10-14 16:21 | CP.PCM.PN ---
Subjective - Date & Time of Evaluation Date of Evaluation: 10/14/16 Time of Evaluation: 22:22 - Subjective Subjective: Doing well Still bleeding Objective - Vital Signs/Intake and Output Vital Signs (last 24 hours): Temp Pulse Resp BP Pulse Ox 98.6 F 88 98 H 115/45 L 17 L 10/14/16 08:00 10/14/16 11:51 10/14/16 10:00 10/14/16 11:51 10/14/16 10:00 Intake and Output: 10/14/16 10/14/16 06:59 18:59 Intake Total 220 Balance 220 - Medications Medications: Current Medications Acetaminophen (Tylenol 325mg Tab) 975 mg PO ONCE PRN PRN Reason: Fever >100.4 F Acetaminophen (Tylenol 325mg Tab) 650 mg PO Q4 PRN PRN Reason: Fever >100.4 F Last Admin: 10/12/16 06:14 Dose: 650 mg Citalopram Hydrobromide (Celexa) 10 mg PO DAILY [facility] Last Admin: 10/14/16 08:24 Dose: 10 mg Piperacillin Sod/Tazobactam (Sod 3.375 gm/ Sodium Chloride) 100 mls @ 100 mls/ hr IVPB Q6 [facility] Last Admin: 10/14/16 15:59 Dose: 100 mls/hr Latanoprost (Xalatan Opht) 1 drop OD HS [facility] Last Admin: 10/13/16 23:00 Dose: 1 drop Metoprolol Tartrate (Lopressor) 100 mg PO Q12H [facility] Last Admin: 10/14/16 11:51 Dose: Not Given Morphine Sulfate (Morphine) 2 mg IVP Q4 PRN PRN Reason: Pain, moderate (4-7) Last Admin: 10/13/16 12:49 Dose: 2 mg Oxycodone HCl (Oxycontin Extended Release Tab) 20 mg PO Q12 [facility] Last Admin: 10/14/16 08:24 Dose: 20 mg Oxycodone HCl (Oxycodone Immediate Release Tab) 5 mg PO Q6 PRN PRN Reason: Pain, moderate (4-7) Last Admin: 10/12/16 23:39 Dose: 5 mg Oxycodone HCl (Oxycodone Immediate Release Tab) 10 mg PO Q6 PRN PRN Reason: Pain, severe (8-10) Last Admin: 10/13/16 23:57 Dose: 10 mg Timolol Maleate (Timoptic 0.5% Ophth Soln) 1 drop OD BID [facility] Last Admin: 10/14/16 16:05 Dose: 1 drop - Labs Labs: 10/14/16 05:00 10/14/16 05:00 PT 13.9 Seconds (9.8-13.1) H 10/13/16 04:50 INR 1.3 (0.9-1.2) H 10/13/16 04:50 APTT 28.0 Seconds (25.6-37.1) D 10/13/16 04:50 - Respiratory Exam Respiratory Exam: NORMAL BREATHING PATTERN - Cardiovascular Exam Cardiovascular Exam: REGULAR RHYTHM - GI/Abdominal Exam GI & Abdominal Exam: Normal Bowel Sounds Assessment and Plan - Assessment and Plan (Free Text) Assessment: Hematuria/ Pyelonephritis Urology Cystoscopy and Uteroscopy ID [id number] Cuktures Hypotension etiol? Sepsis vs Narcotics Heart dx Afib Cardiology CKD Nephrology Chronic pain Anxiety Pain management
[2016-10-14] MEDS: oxyCODONE 5 mg Immediate Release Tab PO PRN (17:42)
[2016-10-14] MEDS: Latanoprost 0.005% Opht SOUTION OD SCH (21:32)
[2016-10-15] MEDS: oxyCODONE 5 mg Immediate Release Tab PO PRN ×3 (02:05→18:10)
[2016-10-15] MEDS: Piperacillin/Tazobact 3.375 GM in Sodium Chloride 0.9% 100 ML IVPB SCH ×4 (04:52→22:22)
[2016-10-15 08:45] LABS: HEMATOCRIT 31.5 % (34.0-47.0); MEAN CELL VOLUME 78.4 fl (81.0-99.0); MEAN CORPUSCULAR HEMOGLOBIN 24.2 pg (27.0-31.0); MEAN CORPUSCULAR HGB CONC 30.9 g/dL (33.0-37.0); RED CELL DISTRIBUTION WIDTH 22.9 % (11.5-14.5); WHITE BLOOD COUNT 5.9 K/uL (4.8-10.8)
[2016-10-15 09:08] LABS: ALB/GLOB RATIO 1.1 (1.0-2.1); BILIRUBIN,TOTAL 0.6 mg/dl (0.2-1.3); CALCIUM 8.8 mg/dL (8.4-10.2); POTASSIUM 3.5 MMOL/L (3.6-5.0); TOTAL PROTEIN 6.8 G/DL (6.3-8.2)
--- NOTE | 2016-10-15 09:56 | CP.PCM.CON ---
History of Present Illness - History of Present Illness History of Present Illness: This patient who is 71 years of age I was called to see her for abnormal kidney function. Patient was admitted what appeared to be gross hematuria dysuria and sign off urine tract infection and pyelonephritis. Patient receiving antibiotics although at one point she became hypotensive [employer] was called and she was transferred to ICU because of what appeared to be hypotensive episode related to sepsis perhaps. PMH: Anemia, Anxiety, Arthritis, Chronic Atrial Fibrillation, Back Problems ( chronic),Sciatica, CHF, HTN, Kidney Stones, Chronic Kidney Disease, Rheumatoid Arthritis, Glaucoma, Cervical Cancer s/p Hysterectomy 13 years ago PSH: Cholecystectomy, Hernia Repair, , partial hysterectomy; SH: No Smoking; No Alcohol; No Drugs FH: DM: HTN Allergies: NKDA Review of Systems - Constitutional Constitutional: As Per HPI, Anorexia. absent: Chills - EENT Eyes: As Per HPI Nose/Mouth/Throat: As Per HPI - Cardiovascular Cardiovascular: absent: Chest Pain, Dyspnea, Edema - Respiratory Respiratory: absent: Hemoptysis - Gastrointestinal Gastrointestinal: Abdominal Pain. absent: Coffee Ground Emesis - Genitourinary Genitourinary: As Per HPI, Hematuria, Pyuria, Nocturia - Musculoskeletal Musculoskeletal: As Per HPI - Neurological Neurological: absent: Dizziness, Syncope - Endocrine Endocrine: As Per HPI Past Patient History - Infectious Disease Hx of Infectious Diseases: None - Past Medical History & Family History Past Medical History?: Yes - Past Social History Smoking Status: Never Smoked Chewing Tobacco Use: No Cigar Use: No Alcohol: None Drugs: Denies Home Situation {Lives}: With Family - CARDIAC Hx Atrial Fibrillation: Yes Hx Congestive Heart Failure: Yes Hx Hypertension: Yes - PULMONARY Hx Respiratory Disorders: No Hx Tuberculosis: No - NEUROLOGICAL Hx Seizures: No - HEENT Hx HEENT Problems: Yes Hx Glaucoma: Yes - RENAL Hx Chronic Kidney Disease: Yes Hx Kidney Stones: Yes - ENDOCRINE/METABOLIC Hx Endocrine Disorders: No - HEMATOLOGICAL/ONCOLOGICAL Hx Anemia: Yes Hx Human Immunodeficiency Virus (HIV): No - INTEGUMENTARY Hx Dermatological Problems: No - MUSCULOSKELETAL/RHEUMATOLOGICAL Hx Arthritis: Yes Hx Back Pain: Yes Hx Rheumatoid Arthritis: Yes - GASTROINTESTINAL Hx Gastrointestinal Disorders: Yes Hx Ulcer: Yes - GENITOURINARY/GYNECOLOGICAL Hx Sexually Transmitted Disorders: No - PSYCHIATRIC Hx Anxiety: Yes - SURGICAL HISTORY Hx Section: Yes Hx Cholecystectomy: Yes Hx Herniorrhaphy: Yes Hx Hysterectomy: Yes (Patial) - ANESTHESIA Hx Anesthesia: Yes Hx Anesthesia Reactions: No Hx Malignant Hyperthermia: No Has any member of the family had a problem w/ anesthesia?: No Meds Allergies/Adverse Reactions: Allergies Allergy/AdvReac Type Severity Reaction Status Date / Time No Known Allergies Allergy Verified 11/03/13 12:57 - Medications Medications: Current Medications Acetaminophen (Tylenol 325mg Tab) 975 mg PO ONCE PRN PRN Reason: Fever >100.4 F Acetaminophen (Tylenol 325mg Tab) 650 mg PO Q4 PRN PRN Reason: Fever >100.4 F Last Admin: 10/12/16 06:14 Dose: 650 mg Citalopram Hydrobromide (Celexa) 10 mg PO DAILY [facility] Last Admin: 10/15/16 08:40 Dose: 10 mg Piperacillin Sod/Tazobactam (Sod 3.375 gm/ Sodium Chloride) 100 mls @ 100 mls/ hr IVPB Q6 [facility] Last Admin: 10/15/16 09:21 Dose: 100 mls/hr Latanoprost (Xalatan Opht) 1 drop OD HS [facility] Last Admin: 10/14/16 21:32 Dose: 1 drop Metoprolol Tartrate (Lopressor) 100 mg PO Q12H [facility] Last Admin: 10/15/16 00:13 Dose: Not Given Morphine Sulfate (Morphine) 2 mg IVP Q4 PRN PRN Reason: Pain, moderate (4-7) Last Admin: 10/14/16 18:26 Dose: 2 mg Oxycodone HCl (Oxycontin Extended Release Tab) 20 mg PO Q12 [facility] Last Admin: 10/14/16 21:31 Dose: 20 mg Oxycodone HCl (Oxycodone Immediate Release Tab) 5 mg PO Q6 PRN PRN Reason: Pain, moderate (4-7) Last Admin: 10/12/16 23:39 Dose: 5 mg Oxycodone HCl (Oxycodone Immediate Release Tab) 10 mg PO Q6 PRN PRN Reason: Pain, severe (8-10) Last Admin: 10/15/16 08:31 Dose: 10 mg Timolol Maleate (Timoptic 0.5% Ophth Soln) 1 drop OD BID [facility] Last Admin: 10/15/16 08:41 Dose: 1 drop Physical Exam - Constitutional Appears: No Acute Distress - ENT Exam ENT Exam: Mucous Membranes Moist - Respiratory Exam Respiratory Exam: NORMAL BREATHING PATTERN - Cardiovascular Exam Cardiovascular Exam: absent: JVD, Rubs - Extremities Exam Extremities exam: Negative for: calf tenderness - Back Exam Back exam: CVA tenderness (L), CVA tenderness (R) - Neurological Exam Neurological exam: Alert Results - Vital Signs Recent Vital Signs: Last Vital Signs Temp 98.5 F 10/15/16 08:18 Pulse 108 H 10/15/16 08:18 Resp 20 10/15/16 08:18 BP 123/76 10/15/16 01:00 Pulse Ox 95 10/15/16 08:18 - Labs Result Diagrams: 10/15/16 08:30 10/15/16 08:30 Labs: Laboratory Results - last 24 hr 10/14/16 10/14/16 10/14/16 11:52 15:47 21:40 WBC RBC Hgb Hct MCV MCH MCHC RDW Plt Count Sodium Potassium Chloride Carbon Dioxide Anion Gap BUN Creatinine Est GFR ( Amer) Est GFR (Non-Af Amer) POC Glucose (mg/dL) 115 H 135 H 107 Random Glucose Calcium Total Bilirubin AST ALT Alkaline Phosphatase Total Protein Albumin Globulin Albumin/Globulin Ratio 10/15/16 10/15/16 10/15/16 05:54 08:30 08:30 WBC 5.9 RBC 4.02 Hgb 9.7 L Hct 31.5 L MCV 78.4 L MCH 24.2 L MCHC 30.9 L RDW 22.9 H Plt Count 242 Sodium 142 Potassium 3.5 L Chloride 108 H Carbon Dioxide 25 Anion Gap 13 BUN 14 Creatinine 1.2 Est GFR ( Amer) 54 Est GFR (Non-Af Amer) 44 POC Glucose (mg/dL) 89 Random Glucose 130 H Calcium 8.8 Total Bilirubin 0.6 AST 21 ALT 26 Alkaline Phosphatase 78 Total Protein 6.8 Albumin 3.6 Globulin 3.2 Albumin/Globulin Ratio 1.1 Assessment & Plan (1) Acute kidney injury Assessment and Plan: Patient appears to have acute kidney injury with rising BUN/creatinine initially perhaps related to the hemodynamic changes and hypotensive early sepsis. And since then she has been recovering and serum creatinine coming down. As far as the CT scan with abnormal findings see below reported, suggest to do CT scan with IV contrast after completed treatment of pyelonephritis and urinary tract infection and returning kidney function to normal. PROCEDURE: CT Abdomen and Pelvis without contrast HISTORY: suprapub pain and genital bldng h/o renal stone COMPARISON: CT abdomen pelvis 12/03/2010 TECHNIQUE: CT scan of the abdomen and pelvis was performed without IV contrast. The absence of oral contrast limits evaluation of bowel lumen. The absence of intravenous contrast limits evaluation of solid organs including the kidneys as well as blood vessels and vascular structures. Coronal and sagittal reconstructions were also acquired. Radiation dose: Total exam DLP = 1087 mGy-cm. FINDINGS: LOWER THORAX: Lung bases demonstrate mild dependent bibasilar atelectasis. Heart size mildly enlarged. LIVER: Unremarkable unenhanced appearance. GALLBLADDER AND BILE DUCTS: Gallbladder is surgically absent with multiple surgical clips in the gallbladder fossa. PANCREAS: Unremarkable unenhanced appearance. SPLEEN: Unremarkable unenhanced appearance. ADRENALS: Unremarkable unenhanced appearance. KIDNEYS AND URETERS: Right kidney: Stable subcentimeter upper pole exophytic lobulated hypodensity containing calcifications. . There is no nephrolithiasis or hydronephrosis. Left kidney: No hydronephrosis identified. Multiple cysts noted. There is moderate perinephric stranding. There is dilatation of the collecting system and renal pelvis with hyperdense fluid that demonstrates attenuation of blood. The ureters are not dilated. BLADDER: Is incompletely distended. REPRODUCTIVE: Uterus appears surgically absent. APPENDIX: Unremarkable. Normal appendix. STOMACH AND BOWEL: Moderate hiatal hernia. There is no abnormal small of large bowel dilatation. There is moderate to severe sigmoid diverticulosis without evidence of diverticulitis. PERITONEUM: No pelvic free fluid is seen. LYMPH NODES: No significant abdominal or pelvic lymphadenopathy. VASCULATURE: Abdominal Aorta is normal in caliber. BONES: Stable sclerotic focus in the right iliac bone. Degenerative changes noted of the spine. increased sclerosis of the bilateral femoral heads suggestive of avascular necrosis. OTHER FINDINGS: Small foci of air noted in the subcutaneous soft tissues of the back, right greater than left. This may be due to medication injections, correlate clinically.. IMPRESSION: Hyperdense material in the left renal collecting system and pelvis with dilatation of the renal pelvis, that likely represents blood products. Correlate clinically with history of recent intervention. If no recent intervention, then consider neoplastic process. Additional findings as above. Patient receiving antibiotics for the urine infection urinalysis noted initially we will repeat another urine Status: Acute (2) A-fib Status: Acute (3) Pyelonephritis Status: Acute
[2016-10-15] MEDS: oxyCODONE 20 mg ER Tab (oxyCONTIN) PO SCH ×2 (10:20→22:20)
--- NOTE | 2016-10-15 11:28 | CP.PCM.PN ---
Subjective - Date & Time of Evaluation Date of Evaluation: 10/15/16 Time of Evaluation: 09:30 - Subjective Subjective: NO NEW COMPLAINTS NO CHEST PAIN OR SOB Objective - Vital Signs/Intake and Output Vital Signs (last 24 hours): Temp Pulse Resp BP Pulse Ox 98.5 F 73 20 137/82 95 10/15/16 08:18 10/15/16 11:06 10/15/16 08:18 10/15/16 11:06 10/15/16 08:18 - Medications Medications: Current Medications Acetaminophen (Tylenol 325mg Tab) 975 mg PO ONCE PRN PRN Reason: Fever >100.4 F Acetaminophen (Tylenol 325mg Tab) 650 mg PO Q4 PRN PRN Reason: Fever >100.4 F Last Admin: 10/12/16 06:14 Dose: 650 mg Citalopram Hydrobromide (Celexa) 10 mg PO DAILY [facility] Last Admin: 10/15/16 08:40 Dose: 10 mg Piperacillin Sod/Tazobactam (Sod 3.375 gm/ Sodium Chloride) 100 mls @ 100 mls/ hr IVPB Q6 [facility] Last Admin: 10/15/16 09:21 Dose: 100 mls/hr Latanoprost (Xalatan Opht) 1 drop OD HS [facility] Last Admin: 10/14/16 21:32 Dose: 1 drop Metoprolol Tartrate (Lopressor) 100 mg PO Q12H [facility] Last Admin: 10/15/16 11:06 Dose: 100 mg Morphine Sulfate (Morphine) 2 mg IVP Q4 PRN PRN Reason: Pain, moderate (4-7) Last Admin: 10/14/16 18:26 Dose: 2 mg Oxycodone HCl (Oxycontin Extended Release Tab) 20 mg PO Q12 [facility] Last Admin: 10/15/16 10:20 Dose: 20 mg Oxycodone HCl (Oxycodone Immediate Release Tab) 5 mg PO Q6 PRN PRN Reason: Pain, moderate (4-7) Last Admin: 10/12/16 23:39 Dose: 5 mg Oxycodone HCl (Oxycodone Immediate Release Tab) 10 mg PO Q6 PRN PRN Reason: Pain, severe (8-10) Last Admin: 10/15/16 08:31 Dose: 10 mg Timolol Maleate (Timoptic 0.5% Ophth Soln) 1 drop OD BID [facility] Last Admin: 10/15/16 08:41 Dose: 1 drop - Labs Labs: 10/15/16 08:30 10/15/16 08:30 PT 13.9 Seconds (9.8-13.1) H 10/13/16 04:50 INR 1.3 (0.9-1.2) H 10/13/16 04:50 APTT 28.0 Seconds (25.6-37.1) D 10/13/16 04:50 - Respiratory Exam Respiratory Exam: Clear to Ausculation Bilateral - Cardiovascular Exam Cardiovascular Exam: Irregular Rhythm, +S1, +S2 - Additional Findings Additional findings: NEPHROLOGY NOTE SEEN Assessment and Plan - Assessment and Plan (Free Text) Assessment: PYELONEPHRITIS WITH HEMATURIA CHRONIC ATRIAL FIBRILLATION HYPERTENSION LEX Plan: CONTINUE METOPROLOL AND ANTIBIOTICS
--- NOTE | 2016-10-15 12:38 | CP.PCM.PN ---
Subjective - Date & Time of Evaluation Date of Evaluation: 10/15/16 Time of Evaluation: 07:00 - Subjective Subjective: afeb dr choi on board Objective - Vital Signs/Intake and Output Vital Signs (last 24 hours): Temp Pulse Resp BP Pulse Ox 98.5 F 73 20 137/82 95 10/15/16 08:18 10/15/16 11:06 10/15/16 08:18 10/15/16 11:06 10/15/16 08:18 - Medications Medications: Current Medications Acetaminophen (Tylenol 325mg Tab) 975 mg PO ONCE PRN PRN Reason: Fever >100.4 F Acetaminophen (Tylenol 325mg Tab) 650 mg PO Q4 PRN PRN Reason: Fever >100.4 F Last Admin: 10/12/16 06:14 Dose: 650 mg Citalopram Hydrobromide (Celexa) 10 mg PO DAILY [facility] Last Admin: 10/15/16 08:40 Dose: 10 mg Piperacillin Sod/Tazobactam (Sod 3.375 gm/ Sodium Chloride) 100 mls @ 100 mls/ hr IVPB Q6 [facility] Last Admin: 10/15/16 09:21 Dose: 100 mls/hr Latanoprost (Xalatan Opht) 1 drop OD HS [facility] Last Admin: 10/14/16 21:32 Dose: 1 drop Metoprolol Tartrate (Lopressor) 100 mg PO Q12H [facility] Last Admin: 10/15/16 11:06 Dose: 100 mg Morphine Sulfate (Morphine) 2 mg IVP Q4 PRN PRN Reason: Pain, moderate (4-7) Last Admin: 10/14/16 18:26 Dose: 2 mg Oxycodone HCl (Oxycontin Extended Release Tab) 20 mg PO Q12 [facility] Last Admin: 10/15/16 10:20 Dose: 20 mg Oxycodone HCl (Oxycodone Immediate Release Tab) 5 mg PO Q6 PRN PRN Reason: Pain, moderate (4-7) Last Admin: 10/12/16 23:39 Dose: 5 mg Oxycodone HCl (Oxycodone Immediate Release Tab) 10 mg PO Q6 PRN PRN Reason: Pain, severe (8-10) Last Admin: 10/15/16 08:31 Dose: 10 mg Timolol Maleate (Timoptic 0.5% Ophth Soln) 1 drop OD BID [facility] Last Admin: 10/15/16 08:41 Dose: 1 drop - Labs Labs: 10/15/16 08:30 10/15/16 08:30 PT 13.9 Seconds (9.8-13.1) H 10/13/16 04:50 INR 1.3 (0.9-1.2) H 10/13/16 04:50 APTT 28.0 Seconds (25.6-37.1) D 10/13/16 04:50 - Constitutional Appears: Non-toxic, Chronically Ill - Head Exam Head Exam: NORMOCEPHALIC - Eye Exam Eye Exam: PERRL - ENT Exam ENT Exam: Mucous Membranes Dry - Neck Exam Neck Exam: absent: Lymphadenopathy - Respiratory Exam Respiratory Exam: Decreased Breath Sounds - Cardiovascular Exam Cardiovascular Exam: REGULAR RHYTHM - GI/Abdominal Exam GI & Abdominal Exam: Distended, Soft Assessment and Plan (1) A-fib Status: Acute (2) Pyelonephritis Status: Acute (3) Anemia Status: Acute - Assessment and Plan (Free Text) Plan: improving on iv rx
[2016-10-15] MEDS ORDERED: Potassium Chloride 20 mEq ER Tab PO ONE (12:50)
--- NOTE | 2016-10-15 13:41 | CP.PCM.PN ---
Subjective - Date & Time of Evaluation Date of Evaluation: 10/15/16 Time of Evaluation: 22:22 - Subjective Subjective: Above noted Objective - Vital Signs/Intake and Output Vital Signs (last 24 hours): Temp Pulse Resp BP Pulse Ox 98.5 F 73 20 137/82 95 10/15/16 08:18 10/15/16 11:06 10/15/16 08:18 10/15/16 11:06 10/15/16 08:18 - Medications Medications: Current Medications Acetaminophen (Tylenol 325mg Tab) 975 mg PO ONCE PRN PRN Reason: Fever >100.4 F Acetaminophen (Tylenol 325mg Tab) 650 mg PO Q4 PRN PRN Reason: Fever >100.4 F Last Admin: 10/12/16 06:14 Dose: 650 mg Citalopram Hydrobromide (Celexa) 10 mg PO DAILY [facility] Last Admin: 10/15/16 08:40 Dose: 10 mg Piperacillin Sod/Tazobactam (Sod 3.375 gm/ Sodium Chloride) 100 mls @ 100 mls/ hr IVPB Q6 [facility] Last Admin: 10/15/16 09:21 Dose: 100 mls/hr Latanoprost (Xalatan Opht) 1 drop OD HS [facility] Last Admin: 10/14/16 21:32 Dose: 1 drop Metoprolol Tartrate (Lopressor) 100 mg PO Q12H [facility] Last Admin: 10/15/16 11:06 Dose: 100 mg Morphine Sulfate (Morphine) 2 mg IVP Q4 PRN PRN Reason: Pain, moderate (4-7) Last Admin: 10/15/16 13:11 Dose: 2 mg Oxycodone HCl (Oxycontin Extended Release Tab) 20 mg PO Q12 [facility] Last Admin: 10/15/16 10:20 Dose: 20 mg Oxycodone HCl (Oxycodone Immediate Release Tab) 5 mg PO Q6 PRN PRN Reason: Pain, moderate (4-7) Last Admin: 10/12/16 23:39 Dose: 5 mg Oxycodone HCl (Oxycodone Immediate Release Tab) 10 mg PO Q6 PRN PRN Reason: Pain, severe (8-10) Last Admin: 10/15/16 08:31 Dose: 10 mg Timolol Maleate (Timoptic 0.5% Ophth Soln) 1 drop OD BID [facility] Last Admin: 10/15/16 08:41 Dose: 1 drop - Labs Labs: 10/15/16 08:30 10/15/16 08:30 PT 13.9 Seconds (9.8-13.1) H 10/13/16 04:50 INR 1.3 (0.9-1.2) H 10/13/16 04:50 APTT 28.0 Seconds (25.6-37.1) D 10/13/16 04:50 - Respiratory Exam Respiratory Exam: Wheezes - Cardiovascular Exam Cardiovascular Exam: REGULAR RHYTHM - GI/Abdominal Exam GI & Abdominal Exam: Normal Bowel Sounds Assessment and Plan - Assessment and Plan (Free Text) Assessment: Hematuria/ Pyelonephritis Urology Cystoscopy and Uteroscopy ID [id number] Cuktures Hypotension etiol? Sepsis vs Narcotics Heart dx Afib Cardiology Hx of recent GI bleed and Hematuria was taking Savaysa Hematology consult CKD LEX Nephrology Chronic pain Anxiety Pain management
--- NOTE | 2016-10-15 18:08 | CP.PCM.CON ---
History of Present Illness - History of Present Illness History of Present Illness: Hematology Consult Referred by Dr. Gibbs for anticoagulation management HPI- Ms Neff is 71 y/o F with h/o chronic A Fib (on Edoxaban), CHF, HTN, Chronic back Pain, Cervical Cancer, Kidney stone, RA and with Partial Hysterectomy who presented to ED with hematuria and suprapubic pain. CT A/P showed hyperdense material in left renal collecting system with dilatation suggestive of blood products. Edoxaban was held. She also had fever with hypotension and started on IV antibiotics. She underwent cystoscopy that showed blood clots in left renal pelvis but no evidence of tumor. Urine cytology however showed dysplastic cells arranged in pappilae, suspicious for pappilary carcinoma. Currently, she denies any further bleeding. Her Hb dropped though from 11.5 to 9.7. Other blood counts are stable. Denies abdominal pain, nausea, vomiting. Denies fever/ chills. PMH: Anemia, Anxiety, Arthritis, Chronic Atrial Fibrillation, Back Problems ( chronic),Sciatica, CHF, HTN, Kidney Stones, Chronic Kidney Disease, Rheumatoid Arthritis, Glaucoma, Cervical Cancer PSH: Cholecystectomy, Hernia Repair, , partial hysterectomy; SH: No Smoking; No Alcohol; No Drugs FH: DM: HTN Allergies: NKDA Review of Systems - Review of Systems All systems: reviewed and no additional remarkable complaints except Review of Systems: as in HPI Past Patient History - Infectious Disease Hx of Infectious Diseases: None - Past Medical History & Family History Past Medical History?: Yes - Past Social History Smoking Status: Never Smoked Chewing Tobacco Use: No Cigar Use: No Alcohol: None Drugs: Denies Home Situation {Lives}: With Family - CARDIAC Hx Atrial Fibrillation: Yes Hx Congestive Heart Failure: Yes Hx Hypertension: Yes - PULMONARY Hx Respiratory Disorders: No Hx Tuberculosis: No - NEUROLOGICAL Hx Seizures: No - HEENT Hx HEENT Problems: Yes Hx Glaucoma: Yes - RENAL Hx Chronic Kidney Disease: Yes Hx Kidney Stones: Yes - ENDOCRINE/METABOLIC Hx Endocrine Disorders: No - HEMATOLOGICAL/ONCOLOGICAL Hx Anemia: Yes Hx Human Immunodeficiency Virus (HIV): No - INTEGUMENTARY Hx Dermatological Problems: No - MUSCULOSKELETAL/RHEUMATOLOGICAL Hx Arthritis: Yes Hx Back Pain: Yes Hx Rheumatoid Arthritis: Yes - GASTROINTESTINAL Hx Gastrointestinal Disorders: Yes Hx Ulcer: Yes - GENITOURINARY/GYNECOLOGICAL Hx Sexually Transmitted Disorders: No - PSYCHIATRIC Hx Anxiety: Yes - SURGICAL HISTORY Hx Section: Yes Hx Cholecystectomy: Yes Hx Herniorrhaphy: Yes Hx Hysterectomy: Yes (Patial) - ANESTHESIA Hx Anesthesia: Yes Hx Anesthesia Reactions: No Hx Malignant Hyperthermia: No Has any member of the family had a problem w/ anesthesia?: No Meds Allergies/Adverse Reactions: Allergies Allergy/AdvReac Type Severity Reaction Status Date / Time No Known Allergies Allergy Verified 11/03/13 12:57 - Medications Medications: Current Medications Acetaminophen (Tylenol 325mg Tab) 975 mg PO ONCE PRN PRN Reason: Fever >100.4 F Acetaminophen (Tylenol 325mg Tab) 650 mg PO Q4 PRN PRN Reason: Fever >100.4 F Last Admin: 10/12/16 06:14 Dose: 650 mg Citalopram Hydrobromide (Celexa) 10 mg PO DAILY [facility] Last Admin: 10/15/16 08:40 Dose: 10 mg Piperacillin Sod/Tazobactam (Sod 3.375 gm/ Sodium Chloride) 100 mls @ 100 mls/ hr IVPB Q6 [facility] Last Admin: 10/15/16 09:21 Dose: 100 mls/hr Iron Sucrose 200 mg/ Sodium (Chloride) 110 mls @ 110 mls/hr IVPB DAILY [facility] Stop: 10/18/16 15:31 Latanoprost (Xalatan Opht) 1 drop OD HS [facility] Last Admin: 10/14/16 21:32 Dose: 1 drop Metoprolol Tartrate (Lopressor) 100 mg PO Q12H [facility] Last Admin: 10/15/16 11:06 Dose: 100 mg Morphine Sulfate (Morphine) 2 mg IVP Q4 PRN PRN Reason: Pain, moderate (4-7) Last Admin: 10/15/16 13:11 Dose: 2 mg Oxycodone HCl (Oxycontin Extended Release Tab) 20 mg PO Q12 [facility] Last Admin: 10/15/16 10:20 Dose: 20 mg Oxycodone HCl (Oxycodone Immediate Release Tab) 5 mg PO Q6 PRN PRN Reason: Pain, moderate (4-7) Last Admin: 10/12/16 23:39 Dose: 5 mg Oxycodone HCl (Oxycodone Immediate Release Tab) 10 mg PO Q6 PRN PRN Reason: Pain, severe (8-10) Last Admin: 10/15/16 08:31 Dose: 10 mg Timolol Maleate (Timoptic 0.5% Ophth Soln) 1 drop OD BID [facility] Last Admin: 10/15/16 08:41 Dose: 1 drop Physical Exam - Head Exam Head Exam: ATRAUMATIC, NORMAL INSPECTION - Eye Exam Eye Exam: EOMI, PERRL. absent: Scleral icterus - ENT Exam ENT Exam: Mucous Membranes Moist - Neck Exam Neck exam: Negative for: Lymphadenopathy - Respiratory Exam Respiratory Exam: Clear to Auscultation Bilateral - Cardiovascular Exam Cardiovascular Exam: REGULAR RHYTHM - GI/Abdominal Exam GI & Abdominal Exam: Normal Bowel Sounds, Soft. absent: Organomegaly, Tenderness - Extremities Exam Extremities exam: Negative for: pedal edema - Neurological Exam Neurological exam: Alert, Oriented x3 Results - Vital Signs Recent Vital Signs: Last Vital Signs Temp 98.8 F 10/15/16 16:08 Pulse 88 10/15/16 16:08 Resp 18 10/15/16 16:08 BP 149/94 H 10/15/16 16:08 Pulse Ox 95 10/15/16 16:08 - Labs Result Diagrams: 10/15/16 08:30 10/15/16 08:30 Labs: Laboratory Results - last 24 hr 10/14/16 10/15/16 10/15/16 21:40 05:54 08:30 WBC 5.9 RBC 4.02 Hgb 9.7 L Hct 31.5 L MCV 78.4 L MCH 24.2 L MCHC 30.9 L RDW 22.9 H Plt Count 242 Sodium Potassium Chloride Carbon Dioxide Anion Gap BUN Creatinine Est GFR ( Amer) Est GFR (Non-Af Amer) POC Glucose (mg/dL) 107 89 Random Glucose Calcium Total Bilirubin AST ALT Alkaline Phosphatase Total Protein Albumin Globulin Albumin/Globulin Ratio 10/15/16 10/15/16 10/15/16 08:30 11:02 15:42 WBC RBC Hgb Hct MCV MCH MCHC RDW Plt Count Sodium 142 Potassium 3.5 L Chloride 108 H Carbon Dioxide 25 Anion Gap 13 BUN 14 Creatinine 1.2 Est GFR ( Amer) 54 Est GFR (Non-Af Amer) 44 POC Glucose (mg/dL) 93 118 H Random Glucose 130 H Calcium 8.8 Total Bilirubin 0.6 AST 21 ALT 26 Alkaline Phosphatase 78 Total Protein 6.8 Albumin 3.6 Globulin 3.2 Albumin/Globulin Ratio 1.1 Assessment & Plan - Assessment and Plan (Free Text) Assessment: Hematuria, precipitated by anticoagulation Microcytic anemia Possibly urinary tract malignancy Continue to hold anticoagulation for now till she is stabilized. She should follow up with cardiology to discuss risks and benefits for continued anticoagulation for A fib. Will start her on IV Venofer daily while in hospital. Monitor for recurrent bleeding. F/U with urology for urine cytology findings. Imaging and cystoscopy did not show any specific mass though it could be obscured due to blood products. She may need repeat imaging once stable. Thank you for the consult Gareth Weber MD - Date & Time Date: 10/15/16 Time: 18:08
--- NOTE | 2016-10-15 20:04 | CP.PCM.PN ---
Subjective - Date & Time of Evaluation Date of Evaluation: 10/15/16 Time of Evaluation: 20:01 - Subjective Subjective: UROLOGY pt seen today. Gross hematuria has stopped. I discussed with her the cytology results. I suggested that within about [address] with and without contrast and be prepared to have a second look ureteroscopy hopefully the clots will have dissolved and a better vlook of the renal pelvis can be had Objective - Vital Signs/Intake and Output Vital Signs (last 24 hours): Temp Pulse Resp BP Pulse Ox 98.8 F 88 18 149/94 H 95 10/15/16 16:08 10/15/16 16:08 10/15/16 16:08 10/15/16 16:08 10/15/16 16:08 - Medications Medications: Current Medications Acetaminophen (Tylenol 325mg Tab) 975 mg PO ONCE PRN PRN Reason: Fever >100.4 F Acetaminophen (Tylenol 325mg Tab) 650 mg PO Q4 PRN PRN Reason: Fever >100.4 F Last Admin: 10/12/16 06:14 Dose: 650 mg Citalopram Hydrobromide (Celexa) 10 mg PO DAILY [facility] Last Admin: 10/15/16 08:40 Dose: 10 mg Piperacillin Sod/Tazobactam (Sod 3.375 gm/ Sodium Chloride) 100 mls @ 100 mls/ hr IVPB Q6 [facility] Last Admin: 10/15/16 17:00 Dose: 100 mls/hr Iron Sucrose 200 mg/ Sodium (Chloride) 110 mls @ 110 mls/hr IVPB DAILY [facility] Stop: 10/18/16 15:31 Latanoprost (Xalatan Opht) 1 drop OD HS [facility] Last Admin: 10/14/16 21:32 Dose: 1 drop Metoprolol Tartrate (Lopressor) 100 mg PO Q12H [facility] Last Admin: 10/15/16 11:06 Dose: 100 mg Morphine Sulfate (Morphine) 2 mg IVP Q4 PRN PRN Reason: Pain, moderate (4-7) Last Admin: 10/15/16 13:11 Dose: 2 mg Oxycodone HCl (Oxycontin Extended Release Tab) 20 mg PO Q12 [facility] Last Admin: 10/15/16 10:20 Dose: 20 mg Oxycodone HCl (Oxycodone Immediate Release Tab) 5 mg PO Q6 PRN PRN Reason: Pain, moderate (4-7) Last Admin: 10/12/16 23:39 Dose: 5 mg Oxycodone HCl (Oxycodone Immediate Release Tab) 10 mg PO Q6 PRN PRN Reason: Pain, severe (8-10) Last Admin: 10/15/16 18:10 Dose: 10 mg Timolol Maleate (Timoptic 0.5% Ophth Soln) 1 drop OD BID [facility] Last Admin: 10/15/16 17:58 Dose: 1 drop - Labs Labs: 10/15/16 08:30 10/15/16 08:30 PT 13.9 Seconds (9.8-13.1) H 10/13/16 04:50 INR 1.3 (0.9-1.2) H 10/13/16 04:50 APTT 28.0 Seconds (25.6-37.1) D 10/13/16 04:50
[2016-10-15] MEDS: Latanoprost 0.005% Opht SOUTION OD SCH (22:30)
[2016-10-16] MEDS: Piperacillin/Tazobact 3.375 GM in Sodium Chloride 0.9% 100 ML IVPB SCH ×4 (04:47→21:44)
[2016-10-16] MEDS: oxyCODONE 5 mg Immediate Release Tab PO PRN ×2 (04:53→16:47)
[2016-10-16] MEDS: oxyCODONE 20 mg ER Tab (oxyCONTIN) PO SCH ×3 (08:51→22:33)
--- NOTE | 2016-10-16 13:48 | CP.PCM.PN ---
Subjective - Date & Time of Evaluation Date of Evaluation: 10/16/16 Time of Evaluation: 03:00 - Subjective Subjective: Feels better Objective - Vital Signs/Intake and Output Vital Signs (last 24 hours): Temp Pulse Resp BP Pulse Ox 98.4 F 89 20 148/89 96 10/16/16 07:45 10/16/16 11:35 10/16/16 07:45 10/16/16 11:35 10/16/16 07:45 - Medications Medications: Current Medications Acetaminophen (Tylenol 325mg Tab) 975 mg PO ONCE PRN PRN Reason: Fever >100.4 F Acetaminophen (Tylenol 325mg Tab) 650 mg PO Q4 PRN PRN Reason: Fever >100.4 F Last Admin: 10/12/16 06:14 Dose: 650 mg Citalopram Hydrobromide (Celexa) 10 mg PO DAILY [facility] Last Admin: 10/16/16 08:44 Dose: 10 mg Piperacillin Sod/Tazobactam (Sod 3.375 gm/ Sodium Chloride) 100 mls @ 100 mls/ hr IVPB Q6 [facility] Last Admin: 10/16/16 10:50 Dose: 100 mls/hr Iron Sucrose 200 mg/ Sodium (Chloride) 110 mls @ 110 mls/hr IVPB DAILY [facility] Stop: 10/18/16 15:31 Last Admin: 10/16/16 08:47 Dose: 110 mls/hr Latanoprost (Xalatan Opht) 1 drop OD HS [facility] Last Admin: 10/15/16 22:30 Dose: 1 drop Metoprolol Tartrate (Lopressor) 100 mg PO Q12H [facility] Last Admin: 10/16/16 11:35 Dose: 100 mg Morphine Sulfate (Morphine) 2 mg IVP Q4 PRN PRN Reason: Pain, moderate (4-7) Last Admin: 10/15/16 13:11 Dose: 2 mg Oxycodone HCl (Oxycontin Extended Release Tab) 20 mg PO Q12 [facility] Last Admin: 10/16/16 08:51 Dose: 20 mg Oxycodone HCl (Oxycodone Immediate Release Tab) 5 mg PO Q6 PRN PRN Reason: Pain, moderate (4-7) Last Admin: 10/12/16 23:39 Dose: 5 mg Oxycodone HCl (Oxycodone Immediate Release Tab) 10 mg PO Q6 PRN PRN Reason: Pain, severe (8-10) Last Admin: 10/16/16 04:53 Dose: 10 mg Timolol Maleate (Timoptic 0.5% Ophth Soln) 1 drop OD BID [facility] Last Admin: 10/16/16 08:45 Dose: 1 drop - Labs Labs: 10/15/16 08:30 10/15/16 08:30 PT 13.9 Seconds (9.8-13.1) H 10/13/16 04:50 INR 1.3 (0.9-1.2) H 10/13/16 04:50 APTT 28.0 Seconds (25.6-37.1) D 10/13/16 04:50 - Respiratory Exam Additional comments: Lungs clear - Cardiovascular Exam Cardiovascular Exam: REGULAR RHYTHM - Extremities Exam Additional comments: No edema Assessment and Plan - Assessment and Plan (Free Text) Assessment: LEX resolved Hematuria A.fib Plan: Continue to monitor renal function
[2016-10-16] MEDS: Latanoprost 0.005% Opht SOUTION OD SCH (21:45)
[2016-10-17] MEDS: Piperacillin/Tazobact 3.375 GM in Sodium Chloride 0.9% 100 ML IVPB SCH ×3 (04:47→21:00)
[2016-10-17] MEDS: oxyCODONE 5 mg Immediate Release Tab PO PRN (07:59)
[2016-10-17] MEDS: oxyCODONE 20 mg ER Tab (oxyCONTIN) PO SCH ×2 (09:07→20:20)
--- NOTE | 2016-10-17 14:14 | CP.PCM.PN ---
Subjective - Date & Time of Evaluation Date of Evaluation: 10/17/16 Time of Evaluation: 01:45 - Subjective Subjective: No new complaints Feels better Objective - Vital Signs/Intake and Output Vital Signs (last 24 hours): Temp Pulse Resp BP Pulse Ox 98.5 F 112 H 18 165/115 H 100 10/17/16 07:29 10/17/16 12:32 10/17/16 07:29 10/17/16 12:32 10/17/16 07:29 - Medications Medications: Current Medications Acetaminophen (Tylenol 325mg Tab) 975 mg PO ONCE PRN PRN Reason: Fever >100.4 F Acetaminophen (Tylenol 325mg Tab) 650 mg PO Q4 PRN PRN Reason: Fever >100.4 F Last Admin: 10/12/16 06:14 Dose: 650 mg Alprazolam (Xanax) 0.5 mg PO BID PRN PRN Reason: Anxiety Citalopram Hydrobromide (Celexa) 10 mg PO DAILY [facility] Last Admin: 10/17/16 09:16 Dose: 10 mg Iron Sucrose 200 mg/ Sodium (Chloride) 110 mls @ 110 mls/hr IVPB DAILY [facility] Stop: 10/18/16 15:31 Last Admin: 10/17/16 12:37 Dose: 110 mls/hr Piperacillin Sod/Tazobactam (Sod 3.375 gm/ Sodium Chloride) 100 mls @ 100 mls/ hr IVPB Q6 [facility] Latanoprost (Xalatan Opht) 1 drop OD HS [facility] Last Admin: 10/16/16 21:45 Dose: 1 drop Metoprolol Tartrate (Lopressor) 100 mg PO Q12H [facility] Last Admin: 10/17/16 12:32 Dose: 100 mg Morphine Sulfate (Morphine) 2 mg IVP Q4 PRN PRN Reason: Pain, moderate (4-7) Last Admin: 10/16/16 19:19 Dose: 2 mg Oxycodone HCl (Oxycontin Extended Release Tab) 20 mg PO Q12 [facility] Last Admin: 10/17/16 09:07 Dose: 20 mg Oxycodone HCl (Oxycodone Immediate Release Tab) 5 mg PO Q6 PRN PRN Reason: Pain, moderate (4-7) Last Admin: 10/12/16 23:39 Dose: 5 mg Oxycodone HCl (Oxycodone Immediate Release Tab) 10 mg PO Q6 PRN PRN Reason: Pain, severe (8-10) Last Admin: 10/17/16 07:59 Dose: 10 mg Timolol Maleate (Timoptic 0.5% Ophth Soln) 1 drop OD BID [facility] Last Admin: 10/17/16 09:16 Dose: 1 drop - Labs Labs: 10/15/16 08:30 10/15/16 08:30 PT 13.9 Seconds (9.8-13.1) H 10/13/16 04:50 INR 1.3 (0.9-1.2) H 10/13/16 04:50 APTT 28.0 Seconds (25.6-37.1) D 10/13/16 04:50 - Respiratory Exam Additional comments: Lungs clear - Cardiovascular Exam Cardiovascular Exam: Irregular Rhythm - Extremities Exam Additional comments: No edema Assessment and Plan - Assessment and Plan (Free Text) Assessment: LEX resolved Hematuria Chronic A.fib, CHF Plan: Continue ro monitor renal function Monitor BP
[2016-10-17] MEDS: Latanoprost 0.005% Opht SOUTION OD SCH (21:49)
[2016-10-18] MEDS: Piperacillin/Tazobact 3.375 GM in Sodium Chloride 0.9% 100 ML IVPB SCH ×4 (04:21→21:06)
[2016-10-18] MEDS: oxyCODONE 5 mg Immediate Release Tab PO PRN (04:27)
[2016-10-18 07:55] LABS: CALCIUM 8.6 mg/dL (8.4-10.2); POTASSIUM 3.4 MMOL/L (3.6-5.0)
[2016-10-18] MEDS: oxyCODONE 20 mg ER Tab (oxyCONTIN) PO SCH (08:35)
[2016-10-18 08:42] LABS: HEMATOCRIT 27.8 % (34.0-47.0); MEAN CELL VOLUME 77.7 fl (81.0-99.0); MEAN CORPUSCULAR HEMOGLOBIN 24.8 pg (27.0-31.0); MEAN CORPUSCULAR HGB CONC 31.9 g/dL (33.0-37.0); RED CELL DISTRIBUTION WIDTH 22.8 % (11.5-14.5); WHITE BLOOD COUNT 8.8 K/uL (4.8-10.8)
[2016-10-18] MEDS ORDERED: Potassium Chloride 20 mEq ER Tab PO ONE (08:51)
[2016-10-18] MEDS: Lactobacillus Acidophilus 500 MU Cap PO SCH ×2 (10:00→16:47)
--- NOTE | 2016-10-18 10:27 | CP.PCM.PN ---
Subjective - Date & Time of Evaluation Date of Evaluation: 10/18/16 Time of Evaluation: 10:25 - Subjective Subjective: No new events reported Patient appeared to be comfortable Continue to improve Objective - Vital Signs/Intake and Output Vital Signs (last 24 hours): Temp Pulse Resp BP Pulse Ox 98.5 F 91 H 18 151/97 H 97 10/18/16 07:29 10/18/16 07:29 10/18/16 07:29 10/18/16 07:29 10/18/16 07:29 - Medications Medications: Current Medications Acetaminophen (Tylenol 325mg Tab) 975 mg PO ONCE PRN PRN Reason: Fever >100.4 F Acetaminophen (Tylenol 325mg Tab) 650 mg PO Q4 PRN PRN Reason: Fever >100.4 F Last Admin: 10/12/16 06:14 Dose: 650 mg Alprazolam (Xanax) 0.5 mg PO BID PRN PRN Reason: Anxiety Last Admin: 10/17/16 16:16 Dose: 0.5 mg Citalopram Hydrobromide (Celexa) 10 mg PO DAILY [facility] Last Admin: 10/18/16 08:37 Dose: 10 mg Iron Sucrose 200 mg/ Sodium (Chloride) 110 mls @ 110 mls/hr IVPB DAILY [facility] Stop: 10/18/16 15:31 Last Admin: 10/17/16 12:37 Dose: 110 mls/hr Piperacillin Sod/Tazobactam (Sod 3.375 gm/ Sodium Chloride) 100 mls @ 100 mls/ hr IVPB Q6 [facility] Last Admin: 10/18/16 09:34 Dose: 100 mls/hr Lactobacillus Acidophilus (Bacid Acidophilus) 1 cap PO BID [facility] Latanoprost (Xalatan Opht) 1 drop OD HS [facility] Last Admin: 10/17/16 21:49 Dose: 1 drop Metoprolol Tartrate (Lopressor) 100 mg PO Q12@0700,1900 [facility] Last Admin: 10/18/16 07:11 Dose: 100 mg Morphine Sulfate (Morphine) 2 mg IVP Q4 PRN PRN Reason: Pain, moderate (4-7) Last Admin: 10/17/16 23:11 Dose: 2 mg Oxycodone HCl (Oxycontin Extended Release Tab) 20 mg PO Q12 [facility] Last Admin: 10/18/16 08:35 Dose: 20 mg Oxycodone HCl (Oxycodone Immediate Release Tab) 5 mg PO Q6 PRN PRN Reason: Pain, moderate (4-7) Last Admin: 10/12/16 23:39 Dose: 5 mg Oxycodone HCl (Oxycodone Immediate Release Tab) 10 mg PO Q6 PRN PRN Reason: Pain, severe (8-10) Last Admin: 10/18/16 04:27 Dose: 10 mg Timolol Maleate (Timoptic 0.5% Ophth Soln) 1 drop OD BID [facility] Last Admin: 10/18/16 08:38 Dose: 1 drop Torsemide (Demadex) 20 mg PO DAILY [facility] Last Admin: 10/18/16 08:38 Dose: 20 mg - Labs Labs: 10/18/16 08:35 10/18/16 06:45 PT 13.9 Seconds (9.8-13.1) H 10/13/16 04:50 INR 1.3 (0.9-1.2) H 10/13/16 04:50 APTT 28.0 Seconds (25.6-37.1) D 10/13/16 04:50 - Constitutional Appears: No Acute Distress - ENT Exam ENT Exam: Mucous Membranes Moist - Respiratory Exam Respiratory Exam: absent: Chest Wall Tenderness - Cardiovascular Exam Cardiovascular Exam: absent: Rubs - GI/Abdominal Exam GI & Abdominal Exam: Normal Bowel Sounds - Extremities Exam Extremities Exam: absent: Calf Tenderness - Back Exam Back Exam: absent: CVA tenderness (L), CVA tenderness (R) - Neurological Exam Neurological Exam: Alert Assessment and Plan (1) Acute kidney injury Assessment & Plan: Kidney function improving and recovering from acute kidney injury Also he is responding to antibiotics and recovering from pyelonephritis Suggest to repeat urinalysis Status: Acute (2) A-fib Status: Acute (3) Pyelonephritis Status: Acute
--- NOTE | 2016-10-18 10:32 | CP.PCM.CON ---
History of Present Illness - History of Present Illness History of Present Illness: Patient w/ multiple medical problems s/p ICU stay is referred for pain management. Patient has since been transferred to a regular floor and is doing better clinically. As an outpatient, she normally sees Dr. Sparks for pain management and takes MS Contin 30mg q12h plus Roxicodone 30mg q8h for her chronic osteoarthritic pain. Since hospitalization, her pain regimen has been changed and is currently on Oxycontin and Percocet. She prefers her home regimen. The pain is at baseline, diffuse, over her lower back and various joints. Past Patient History - Infectious Disease Hx of Infectious Diseases: None - Past Medical History & Family History Past Medical History?: Yes - Past Social History Smoking Status: Never Smoked Chewing Tobacco Use: No Cigar Use: No Alcohol: None Drugs: Denies Home Situation {Lives}: With Family - CARDIAC Hx Atrial Fibrillation: Yes Hx Congestive Heart Failure: Yes Hx Hypertension: Yes - PULMONARY Hx Respiratory Disorders: No Hx Tuberculosis: No - NEUROLOGICAL Hx Seizures: No - HEENT Hx HEENT Problems: Yes Hx Glaucoma: Yes - RENAL Hx Chronic Kidney Disease: Yes Hx Kidney Stones: Yes - ENDOCRINE/METABOLIC Hx Endocrine Disorders: No - HEMATOLOGICAL/ONCOLOGICAL Hx Anemia: Yes Hx Human Immunodeficiency Virus (HIV): No - INTEGUMENTARY Hx Dermatological Problems: No - MUSCULOSKELETAL/RHEUMATOLOGICAL Hx Arthritis: Yes Hx Back Pain: Yes Hx Rheumatoid Arthritis: Yes - GASTROINTESTINAL Hx Gastrointestinal Disorders: Yes Hx Ulcer: Yes - GENITOURINARY/GYNECOLOGICAL Hx Sexually Transmitted Disorders: No - PSYCHIATRIC Hx Anxiety: Yes - SURGICAL HISTORY Hx Section: Yes Hx Cholecystectomy: Yes Hx Herniorrhaphy: Yes Hx Hysterectomy: Yes (Patial) - ANESTHESIA Hx Anesthesia: Yes Hx Anesthesia Reactions: No Hx Malignant Hyperthermia: No Has any member of the family had a problem w/ anesthesia?: No Meds Allergies/Adverse Reactions: Allergies Allergy/AdvReac Type Severity Reaction Status Date / Time No Known Allergies Allergy Verified 11/03/13 12:57 - Medications Medications: Current Medications Acetaminophen (Tylenol 325mg Tab) 975 mg PO ONCE PRN PRN Reason: Fever >100.4 F Acetaminophen (Tylenol 325mg Tab) 650 mg PO Q4 PRN PRN Reason: Fever >100.4 F Last Admin: 10/12/16 06:14 Dose: 650 mg Alprazolam (Xanax) 0.5 mg PO BID PRN PRN Reason: Anxiety Last Admin: 10/17/16 16:16 Dose: 0.5 mg Citalopram Hydrobromide (Celexa) 10 mg PO DAILY [facility] Last Admin: 10/18/16 08:37 Dose: 10 mg Hydromorphone HCl (Dilaudid) 1 mg IVP Q4 PRN PRN Reason: Pain, severe (8-10) Iron Sucrose 200 mg/ Sodium (Chloride) 110 mls @ 110 mls/hr IVPB DAILY [facility] Stop: 10/18/16 15:31 Last Admin: 10/17/16 12:37 Dose: 110 mls/hr Piperacillin Sod/Tazobactam (Sod 3.375 gm/ Sodium Chloride) 100 mls @ 100 mls/ hr IVPB Q6 [facility] Last Admin: 10/18/16 09:34 Dose: 100 mls/hr Lactobacillus Acidophilus (Bacid Acidophilus) 1 cap PO BID [facility] Latanoprost (Xalatan Opht) 1 drop OD HS [facility] Last Admin: 10/17/16 21:49 Dose: 1 drop Metoprolol Tartrate (Lopressor) 100 mg PO Q12@0700,1900 [facility] Last Admin: 10/18/16 07:11 Dose: 100 mg Morphine Sulfate (Morphine) 2 mg IVP Q4 PRN PRN Reason: Pain, moderate (4-7) Last Admin: 10/17/16 23:11 Dose: 2 mg Morphine Sulfate (Morphine Extended Release Tab) 30 mg PO Q12 [facility] Timolol Maleate (Timoptic 0.5% Oph Soln) 1 drop OD BID [facility] Last Admin: 10/18/16 08:38 Dose: 1 drop Torsemide (Demadex) 20 mg PO DAILY [facility] Last Admin: 10/18/16 08:38 Dose: 20 mg Physical Exam - Respiratory Exam Respiratory Exam: NORMAL BREATHING PATTERN - Cardiovascular Exam Cardiovascular Exam: REGULAR RHYTHM - Back Exam Back exam: paraspinal tenderness, vertebral tenderness Results - Vital Signs Recent Vital Signs: Last Vital Signs Temp 98.5 F 10/18/16 07:29 Pulse 91 H 10/18/16 07:29 Resp 18 10/18/16 07:29 BP 151/97 H 10/18/16 07:29 Pulse Ox 97 10/18/16 07:29 - Labs Result Diagrams: 10/18/16 08:35 10/18/16 06:45 Labs: Laboratory Results - last 24 hr 10/17/16 10/17/16 10/17/16 07:22 10:42 15:58 WBC RBC Hgb Hct MCV MCH MCHC RDW Plt Count Sodium Potassium Chloride Carbon Dioxide Anion Gap BUN Creatinine Est GFR ( Amer) Est GFR (Non-Af Amer) POC Glucose (mg/dL) 99 114 H Random Glucose Calcium C. difficile Ag & Toxin Negative 10/17/16 10/18/16 10/18/16 21:12 06:09 06:45 WBC RBC Hgb Hct MCV MCH MCHC RDW Plt Count Sodium 141 Potassium 3.4 L Chloride 102 Carbon Dioxide 31 H Anion Gap 11 BUN 13 Creatinine 1.2 Est GFR ( Amer) 54 Est GFR (Non-Af Amer) 44 POC Glucose (mg/dL) 135 H 93 Random Glucose 90 Calcium 8.6 C. difficile Ag & Toxin 10/18/16 08:35 WBC 8.8 RBC 3.58 L Hgb 8.9 L Hct 27.8 L MCV 77.7 L MCH 24.8 L MCHC 31.9 L RDW 22.8 H Plt Count 248 Sodium Potassium Chloride Carbon Dioxide Anion Gap BUN Creatinine Est GFR ( Amer) Est GFR (Non-Af Amer) POC Glucose (mg/dL) Random Glucose Calcium C. difficile Ag & Toxin Assessment & Plan - Assessment and Plan (Free Text) Assessment: 71 yo woman w/ chronic pain on high dose opioid therapy for many years is clinically better after an ICU stay. Goal is to return her to home regimen, however Oxycodone IR isn't on formulary. - d/c oxycontin, start MS Contin 30mg q12h - d/c Percocets, start Dilaudid 1mg IV q4h PRN for now, titrate as needed - patient may return to home regimen upon discharge
[2016-10-18] MEDS: Morphine 30 mg SR Tab PO SCH ×2 (11:28→21:04)
--- NOTE | 2016-10-18 11:54 | CP.PCM.PN ---
Subjective - Date & Time of Evaluation Date of Evaluation: 10/18/16 Time of Evaluation: 08:30 - Subjective Subjective: NO CHEST PAIN OR SOB Objective - Vital Signs/Intake and Output Vital Signs (last 24 hours): Temp Pulse Resp BP Pulse Ox 98.5 F 91 H 18 151/97 H 97 10/18/16 07:29 10/18/16 07:29 10/18/16 07:29 10/18/16 07:29 10/18/16 07:29 - Medications Medications: Current Medications Acetaminophen (Tylenol 325mg Tab) 975 mg PO ONCE PRN PRN Reason: Fever >100.4 F Acetaminophen (Tylenol 325mg Tab) 650 mg PO Q4 PRN PRN Reason: Fever >100.4 F Last Admin: 10/12/16 06:14 Dose: 650 mg Alprazolam (Xanax) 0.5 mg PO BID PRN PRN Reason: Anxiety Last Admin: 10/17/16 16:16 Dose: 0.5 mg Citalopram Hydrobromide (Celexa) 10 mg PO DAILY [facility] Last Admin: 10/18/16 08:37 Dose: 10 mg Hydromorphone HCl (Dilaudid) 1 mg IVP Q4 PRN PRN Reason: Pain, severe (8-10) Iron Sucrose 200 mg/ Sodium (Chloride) 110 mls @ 110 mls/hr IVPB DAILY [facility] Stop: 10/18/16 15:31 Last Admin: 10/17/16 12:37 Dose: 110 mls/hr Piperacillin Sod/Tazobactam (Sod 3.375 gm/ Sodium Chloride) 100 mls @ 100 mls/ hr IVPB Q6 [facility] Last Admin: 10/18/16 09:34 Dose: 100 mls/hr Lactobacillus Acidophilus (Bacid Acidophilus) 1 cap PO BID [facility] Latanoprost (Xalatan Opht) 1 drop OD HS [facility] Last Admin: 10/17/16 21:49 Dose: 1 drop Metoprolol Tartrate (Lopressor) 100 mg PO Q12@0700,1900 [facility] Last Admin: 10/18/16 07:11 Dose: 100 mg Morphine Sulfate (Morphine) 2 mg IVP Q4 PRN PRN Reason: Pain, moderate (4-7) Last Admin: 10/17/16 23:11 Dose: 2 mg Morphine Sulfate (Morphine Extended Release Tab) 30 mg PO Q12 [facility] Last Admin: 10/18/16 11:28 Dose: Not Given Timolol Maleate (Timoptic 0.5% Ophth Soln) 1 drop OD BID [facility] Last Admin: 10/18/16 08:38 Dose: 1 drop Torsemide (Demadex) 20 mg PO DAILY [facility] Last Admin: 10/18/16 08:38 Dose: 20 mg - Labs Labs: 10/18/16 08:35 10/18/16 06:45 PT 13.9 Seconds (9.8-13.1) H 10/13/16 04:50 INR 1.3 (0.9-1.2) H 10/13/16 04:50 APTT 28.0 Seconds (25.6-37.1) D 10/13/16 04:50 - Respiratory Exam Respiratory Exam: Clear to Ausculation Bilateral - Cardiovascular Exam Cardiovascular Exam: Irregular Rhythm, +S1, +S2 - Extremities Exam Extremities Exam: Pedal Edema - Additional Findings Additional findings: BLOOD PRESSURE WAS ELEVATED YESTERDAY AND MEDICATIONS REGIMEN AND TIMING WAS ADJUSTED AND BLOOD PRESSURE IS BETTER TODAY PATH REPORT WITH ATYPICAL EPITHELIAL CELLS Assessment and Plan - Assessment and Plan (Free Text) Assessment: HYPERTENSION CHRONIC ATRIAL FIBRILLATION Plan: CONTINUE METOPROLOL AND TORSEMIDE
--- NOTE | 2016-10-18 20:12 | CP.PCM.PN ---
Subjective - Date & Time of Evaluation Date of Evaluation: 10/18/16 Time of Evaluation: 22:22 - Subjective Subjective: Above noted Objective - Vital Signs/Intake and Output Vital Signs (last 24 hours): Temp Pulse Resp BP Pulse Ox 98.7 F 89 18 142/78 97 10/18/16 16:15 10/18/16 18:42 10/18/16 16:15 10/18/16 18:42 10/18/16 16:15 - Medications Medications: Current Medications Acetaminophen (Tylenol 325mg Tab) 975 mg PO ONCE PRN PRN Reason: Fever >100.4 F Acetaminophen (Tylenol 325mg Tab) 650 mg PO Q4 PRN PRN Reason: Fever >100.4 F Last Admin: 10/12/16 06:14 Dose: 650 mg Alprazolam (Xanax) 0.5 mg PO BID PRN PRN Reason: Anxiety Last Admin: 10/17/16 16:16 Dose: 0.5 mg Citalopram Hydrobromide (Celexa) 10 mg PO DAILY [facility] Last Admin: 10/18/16 08:37 Dose: 10 mg Hydromorphone HCl (Dilaudid) 1 mg IVP Q4 PRN PRN Reason: Pain, severe (8-10) Last Admin: 10/18/16 18:02 Dose: 1 mg Piperacillin Sod/Tazobactam (Sod 3.375 gm/ Sodium Chloride) 100 mls @ 100 mls/ hr IVPB Q6 [facility] Last Admin: 10/18/16 16:49 Dose: 100 mls/hr Lactobacillus Acidophilus (Bacid Acidophilus) 1 cap PO BID [facility] Last Admin: 10/18/16 16:47 Dose: 1 cap Latanoprost (Xalatan Opht) 1 drop OD HS [facility] Last Admin: 10/17/16 21:49 Dose: 1 drop Loperamide HCl (Imodium) 2 mg PO QID PRN PRN Reason: Diarrhea Last Admin: 10/18/16 14:22 Dose: 2 mg Metoprolol Tartrate (Lopressor) 100 mg PO Q12@0700,1900 [facility] Last Admin: 10/18/16 18:42 Dose: 100 mg Morphine Sulfate (Morphine) 2 mg IVP Q4 PRN PRN Reason: Pain, moderate (4-7) Last Admin: 10/17/16 23:11 Dose: 2 mg Morphine Sulfate (Morphine Extended Release Tab) 30 mg PO Q12 [facility] Last Admin: 10/18/16 11:28 Dose: Not Given Timolol Maleate (Timoptic 0.5% Ophth Soln) 1 drop OD BID [facility] Last Admin: 10/18/16 16:48 Dose: 1 drop Torsemide (Demadex) 20 mg PO DAILY [facility] Last Admin: 10/18/16 08:38 Dose: 20 mg - Labs Labs: 10/18/16 08:35 10/18/16 06:45 PT 13.9 Seconds (9.8-13.1) H 10/13/16 04:50 INR 1.3 (0.9-1.2) H 10/13/16 04:50 APTT 28.0 Seconds (25.6-37.1) D 10/13/16 04:50 - Respiratory Exam Respiratory Exam: NORMAL BREATHING PATTERN - Cardiovascular Exam Cardiovascular Exam: REGULAR RHYTHM - GI/Abdominal Exam GI & Abdominal Exam: Normal Bowel Sounds Assessment and Plan - Assessment and Plan (Free Text) Assessment: Hematuria/ Pyelonephritis Urology Cystoscopy and Uteroscopy path?? ID ABX Cultures no growth Hypotension etiol? Sepsis vs Narcotics Heart dx Afib Cardiology Anticoagulation?? Hx of recent GI bleed and Hematuria was taking Savaysa Hematology consult appreciated CKD LEX resolved Nephrology Chronic pain Anxiety Pain management consult appreciated meds adjusted
[2016-10-18] MEDS: Latanoprost 0.005% Opht SOUTION OD SCH (21:06)
[2016-10-19 01:19] VITALS: RESP 20; O2SAT 95
[2016-10-19] MEDS: Piperacillin/Tazobact 3.375 GM in Sodium Chloride 0.9% 100 ML IVPB SCH ×2 (04:29→09:07)
[2016-10-19 05:36] LABS: RBC URINE 19 /hpf (0-3); URINE BACTERIA RARE (<OCC); URINE BILIRUBIN NEGATIVE (NEGATIVE); URINE BLOOD MODERATE (NEGATIVE); URINE COLOR YELLOW (YELLOW); URINE GLUCOSE (UA) NEG (Normal); URINE KETONE NEGATIVE (NEGATIVE); URINE LEUKOCYTE ESTERASE LARGE Leu/uL (Negative); URINE PROTEIN 30 mg/dL (NEGATIVE); URINE UROBILINOGEN 0.2-1.0 mg/dL (0.2-1.0); WBC URINE 31 /hpf (0-5)
[2016-10-19 08:19] VITALS: BP 148/99; PULSE 82; TEMP 98.6
[2016-10-19] MEDS: Lactobacillus Acidophilus 500 MU Cap PO SCH (09:06)
[2016-10-19] MEDS: Morphine 30 mg SR Tab PO SCH (09:06)
--- NOTE | 2016-10-19 09:45 | CP.PCM.PN ---
Subjective - Date & Time of Evaluation Date of Evaluation: 10/19/16 Time of Evaluation: 08:45 - Subjective Subjective: NO NEW COMPLAINTS NO CHEST PAIN OR SOB Objective - Vital Signs/Intake and Output Vital Signs (last 24 hours): Temp Pulse Resp BP Pulse Ox 98.6 F 82 20 148/99 H 95 10/19/16 08:19 10/19/16 09:07 10/19/16 08:19 10/19/16 08:19 10/19/16 08:19 - Medications Medications: Current Medications Acetaminophen (Tylenol 325mg Tab) 975 mg PO ONCE PRN PRN Reason: Fever >100.4 F Acetaminophen (Tylenol 325mg Tab) 650 mg PO Q4 PRN PRN Reason: Fever >100.4 F Last Admin: 10/12/16 06:14 Dose: 650 mg Alprazolam (Xanax) 0.5 mg PO BID PRN PRN Reason: Anxiety Last Admin: 10/19/16 06:51 Dose: 0.5 mg Citalopram Hydrobromide (Celexa) 10 mg PO DAILY [facility] Last Admin: 10/19/16 09:07 Dose: 10 mg Hydromorphone HCl (Dilaudid) 1 mg IVP Q4 PRN PRN Reason: Pain, severe (8-10) Last Admin: 10/19/16 09:40 Dose: 1 mg Piperacillin Sod/Tazobactam (Sod 3.375 gm/ Sodium Chloride) 100 mls @ 100 mls/ hr IVPB Q6 [facility] Last Admin: 10/19/16 09:07 Dose: 100 mls/hr Lactobacillus Acidophilus (Bacid Acidophilus) 1 cap PO BID [facility] Last Admin: 10/19/16 09:06 Dose: 1 cap Latanoprost (Xalatan Opht) 1 drop OD HS [facility] Last Admin: 10/18/16 21:06 Dose: 1 drop Loperamide HCl (Imodium) 2 mg PO QID PRN PRN Reason: Diarrhea Last Admin: 10/19/16 09:41 Dose: 2 mg Metoprolol Tartrate (Lopressor) 100 mg PO Q12@0700,1900 [facility] Last Admin: 10/19/16 09:07 Dose: 100 mg Morphine Sulfate (Morphine) 2 mg IVP Q4 PRN PRN Reason: Pain, moderate (4-7) Last Admin: 10/17/16 23:11 Dose: 2 mg Morphine Sulfate (Morphine Extended Release Tab) 30 mg PO Q12 [facility] Last Admin: 10/19/16 09:06 Dose: 30 mg Timolol Maleate (Timoptic 0.5% Ophth Soln) 1 drop OD BID [facility] Last Admin: 10/19/16 09:07 Dose: 1 drop Torsemide (Demadex) 20 mg PO DAILY [facility] Last Admin: 10/19/16 09:07 Dose: 20 mg - Labs Labs: 10/18/16 08:35 10/18/16 06:45 PT 13.9 Seconds (9.8-13.1) H 10/13/16 04:50 INR 1.3 (0.9-1.2) H 10/13/16 04:50 APTT 28.0 Seconds (25.6-37.1) D 10/13/16 04:50 - Respiratory Exam Respiratory Exam: Clear to Ausculation Bilateral - Cardiovascular Exam Cardiovascular Exam: Irregular Rhythm, +S1, +S2 Assessment and Plan - Assessment and Plan (Free Text) Assessment: CHRONIC ATRIAL FIBRILLATION HYPERTENSION HEMATURIA Plan: CONTINUE METOPROLOL AND TORSEMIDE PATIENT TO BE SEEN BY GYNECOLOGY ANTICOAGULATION TO BE MANAGED BY HER PRIVATE COUNSELING DIRECTOR UPON DISCHARGE
--- NOTE | 2016-10-19 11:29 | CP.PCM.PN ---
Subjective - Date & Time of Evaluation Date of Evaluation: 10/19/16 Time of Evaluation: 11:26 - Subjective Subjective: Patient sitting got out of bed Feels good Appetite is good Objective - Vital Signs/Intake and Output Vital Signs (last 24 hours): Temp Pulse Resp BP Pulse Ox 98.6 F 82 20 148/99 H 95 10/19/16 08:19 10/19/16 09:07 10/19/16 08:19 10/19/16 08:19 10/19/16 08:19 - Medications Medications: Current Medications Acetaminophen (Tylenol 325mg Tab) 975 mg PO ONCE PRN PRN Reason: Fever >100.4 F Acetaminophen (Tylenol 325mg Tab) 650 mg PO Q4 PRN PRN Reason: Fever >100.4 F Last Admin: 10/12/16 06:14 Dose: 650 mg Alprazolam (Xanax) 0.5 mg PO BID PRN PRN Reason: Anxiety Last Admin: 10/19/16 06:51 Dose: 0.5 mg Citalopram Hydrobromide (Celexa) 10 mg PO DAILY [facility] Last Admin: 10/19/16 09:07 Dose: 10 mg Hydromorphone HCl (Dilaudid) 1 mg IVP Q4 PRN PRN Reason: Pain, severe (8-10) Last Admin: 10/19/16 09:40 Dose: 1 mg Lactobacillus Acidophilus (Bacid Acidophilus) 1 cap PO BID [facility] Last Admin: 10/19/16 09:06 Dose: 1 cap Latanoprost (Xalatan Opht) 1 drop OD HS [facility] Last Admin: 10/18/16 21:06 Dose: 1 drop Loperamide HCl (Imodium) 2 mg PO QID PRN PRN Reason: Diarrhea Last Admin: 10/19/16 09:41 Dose: 2 mg Metoprolol Tartrate (Lopressor) 100 mg PO Q12@0700,1900 [facility] Last Admin: 10/19/16 09:07 Dose: 100 mg Morphine Sulfate (Morphine) 2 mg IVP Q4 PRN PRN Reason: Pain, moderate (4-7) Last Admin: 10/17/16 23:11 Dose: 2 mg Morphine Sulfate (Morphine Extended Release Tab) 30 mg PO Q12 [facility] Last Admin: 10/19/16 09:06 Dose: 30 mg Timolol Maleate (Timoptic 0.5% Ophth Soln) 1 drop OD BID [facility] Last Admin: 10/19/16 09:07 Dose: 1 drop Torsemide (Demadex) 20 mg PO DAILY [facility] Last Admin: 10/19/16 09:07 Dose: 20 mg - Labs Labs: 10/18/16 08:35 10/18/16 06:45 PT 13.9 Seconds (9.8-13.1) H 10/13/16 04:50 INR 1.3 (0.9-1.2) H 10/13/16 04:50 APTT 28.0 Seconds (25.6-37.1) D 10/13/16 04:50 - Constitutional Appears: No Acute Distress - ENT Exam ENT Exam: Mucous Membranes Moist - Respiratory Exam Respiratory Exam: NORMAL BREATHING PATTERN. absent: Chest Wall Tenderness - Cardiovascular Exam Cardiovascular Exam: REGULAR RHYTHM. absent: Rubs - GI/Abdominal Exam GI & Abdominal Exam: Normal Bowel Sounds - Extremities Exam Extremities Exam: absent: Calf Tenderness - Back Exam Back Exam: absent: CVA tenderness (L), CVA tenderness (R) - Neurological Exam Neurological Exam: Alert Assessment and Plan (1) Acute kidney injury Assessment & Plan: Patient recovers from acute kidney injury serum creatinine coming down nicely Urinalysis reviewed showed much better and responding to antibiotics Follow-up as needed thank you Status: Acute (2) A-fib Status: Acute (3) Pyelonephritis Status: Acute
[2016-10-19 11:40] LABS: HEMATOCRIT 29.1 % (34.0-47.0); MEAN CELL VOLUME 77.4 fl (81.0-99.0); MEAN CORPUSCULAR HEMOGLOBIN 24.7 pg (27.0-31.0); MEAN CORPUSCULAR HGB CONC 31.9 g/dL (33.0-37.0); RED CELL DISTRIBUTION WIDTH 22.6 % (11.5-14.5); WHITE BLOOD COUNT 7.4 K/uL (4.8-10.8)
--- NOTE | 2016-10-19 11:48 | CP.PCM.PN ---
Subjective - Date & Time of Evaluation Date of Evaluation: 10/19/16 Time of Evaluation: 10:00 - Subjective Subjective: less diarrhea no new cultures Objective - Vital Signs/Intake and Output Vital Signs (last 24 hours): Temp Pulse Resp BP Pulse Ox 98.6 F 82 20 148/99 H 95 10/19/16 08:19 10/19/16 09:07 10/19/16 08:19 10/19/16 08:19 10/19/16 08:19 - Medications Medications: Current Medications Acetaminophen (Tylenol 325mg Tab) 975 mg PO ONCE PRN PRN Reason: Fever >100.4 F Acetaminophen (Tylenol 325mg Tab) 650 mg PO Q4 PRN PRN Reason: Fever >100.4 F Last Admin: 10/12/16 06:14 Dose: 650 mg Alprazolam (Xanax) 0.5 mg PO BID PRN PRN Reason: Anxiety Last Admin: 10/19/16 06:51 Dose: 0.5 mg Citalopram Hydrobromide (Celexa) 10 mg PO DAILY [facility] Last Admin: 10/19/16 09:07 Dose: 10 mg Hydromorphone HCl (Dilaudid) 1 mg IVP Q4 PRN PRN Reason: Pain, severe (8-10) Last Admin: 10/19/16 09:40 Dose: 1 mg Lactobacillus Acidophilus (Bacid Acidophilus) 1 cap PO BID [facility] Last Admin: 10/19/16 09:06 Dose: 1 cap Latanoprost (Xalatan Opht) 1 drop OD HS [facility] Last Admin: 10/18/16 21:06 Dose: 1 drop Loperamide HCl (Imodium) 2 mg PO QID PRN PRN Reason: Diarrhea Last Admin: 10/19/16 09:41 Dose: 2 mg Metoprolol Tartrate (Lopressor) 100 mg PO Q12@0700,1900 [facility] Last Admin: 10/19/16 09:07 Dose: 100 mg Morphine Sulfate (Morphine) 2 mg IVP Q4 PRN PRN Reason: Pain, moderate (4-7) Last Admin: 10/17/16 23:11 Dose: 2 mg Morphine Sulfate (Morphine Extended Release Tab) 30 mg PO Q12 [facility] Last Admin: 10/19/16 09:06 Dose: 30 mg Timolol Maleate (Timoptic 0.5% Ophth Soln) 1 drop OD BID [facility] Last Admin: 10/19/16 09:07 Dose: 1 drop Torsemide (Demadex) 20 mg PO DAILY [facility] Last Admin: 10/19/16 09:07 Dose: 20 mg - Labs Labs: 10/18/16 08:35 10/18/16 06:45 PT 13.9 Seconds (9.8-13.1) H 10/13/16 04:50 INR 1.3 (0.9-1.2) H 10/13/16 04:50 APTT 28.0 Seconds (25.6-37.1) D 10/13/16 04:50 - Constitutional Appears: Toxic - Head Exam Head Exam: NORMAL INSPECTION - Eye Exam Eye Exam: absent: Scleral icterus - ENT Exam ENT Exam: Mucous Membranes Dry - Neck Exam Neck Exam: absent: Lymphadenopathy - Cardiovascular Exam Cardiovascular Exam: REGULAR RHYTHM - GI/Abdominal Exam GI & Abdominal Exam: Distended, Soft. absent: Tenderness - Rectal Exam Rectal Exam: Deferred - Exam Exam: NORMAL INSPECTION - Extremities Exam Extremities Exam: absent: Pedal Edema - Back Exam Back Exam: absent: CVA tenderness (L), CVA tenderness (R) - Neurological Exam Neurological Exam: Alert, Awake, Oriented x3 Assessment and Plan (1) A-fib Status: Acute (2) Pyelonephritis Status: Acute (3) Anemia Status: Acute - Assessment and Plan (Free Text) Assessment: ok to d/c on po rx follow up with PMD
[2016-10-19 12:08] LABS: CALCIUM 8.8 mg/dL (8.4-10.2); POTASSIUM 3.9 MMOL/L (3.6-5.0)
--- NOTE | 2016-10-19 12:26 | CP.PCM.PN ---
Subjective - Date & Time of Evaluation Date of Evaluation: 10/19/16 Time of Evaluation: 12:15 - Subjective Subjective: Patient is doing well on the current regimen. She has no new complaints. She may be going home today, but is awaiting visit by PMD. She has medications at home after discharge. Objective - Vital Signs/Intake and Output Vital Signs (last 24 hours): Temp Pulse Resp BP Pulse Ox 98.6 F 82 20 148/99 H 95 10/19/16 08:19 10/19/16 09:07 10/19/16 08:19 10/19/16 08:19 10/19/16 08:19 - Medications Medications: Current Medications Acetaminophen (Tylenol 325mg Tab) 975 mg PO ONCE PRN PRN Reason: Fever >100.4 F Acetaminophen (Tylenol 325mg Tab) 650 mg PO Q4 PRN PRN Reason: Fever >100.4 F Last Admin: 10/12/16 06:14 Dose: 650 mg Alprazolam (Xanax) 0.5 mg PO BID PRN PRN Reason: Anxiety Last Admin: 10/19/16 06:51 Dose: 0.5 mg Citalopram Hydrobromide (Celexa) 10 mg PO DAILY [facility] Last Admin: 10/19/16 09:07 Dose: 10 mg Hydromorphone HCl (Dilaudid) 1 mg IVP Q4 PRN PRN Reason: Pain, severe (8-10) Last Admin: 10/19/16 09:40 Dose: 1 mg Lactobacillus Acidophilus (Bacid Acidophilus) 1 cap PO BID [facility] Last Admin: 10/19/16 09:06 Dose: 1 cap Latanoprost (Xalatan Opht) 1 drop OD HS [facility] Last Admin: 10/18/16 21:06 Dose: 1 drop Loperamide HCl (Imodium) 2 mg PO QID PRN PRN Reason: Diarrhea Last Admin: 10/19/16 09:41 Dose: 2 mg Metoprolol Tartrate (Lopressor) 100 mg PO Q12@0700,1900 [facility] Last Admin: 10/19/16 09:07 Dose: 100 mg Morphine Sulfate (Morphine) 2 mg IVP Q4 PRN PRN Reason: Pain, moderate (4-7) Last Admin: 10/17/16 23:11 Dose: 2 mg Morphine Sulfate (Morphine Extended Release Tab) 30 mg PO Q12 [facility] Last Admin: 10/19/16 09:06 Dose: 30 mg Timolol Maleate (Timoptic 0.5% Ophth Soln) 1 drop OD BID [facility] Last Admin: 10/19/16 09:07 Dose: 1 drop Torsemide (Demadex) 20 mg PO DAILY [facility] Last Admin: 10/19/16 09:07 Dose: 20 mg - Labs Labs: 10/19/16 11:35 10/19/16 11:35 PT 13.9 Seconds (9.8-13.1) H 10/13/16 04:50 INR 1.3 (0.9-1.2) H 10/13/16 04:50 APTT 28.0 Seconds (25.6-37.1) D 10/13/16 04:50 - Respiratory Exam Respiratory Exam: NORMAL BREATHING PATTERN - Cardiovascular Exam Cardiovascular Exam: REGULAR RHYTHM Assessment and Plan - Assessment and Plan (Free Text) Assessment: 71 yo woman w/ chronic pain. Doing well pain-[place]. - continue current regimen while in-house - patient to resume home meds upon discharge
--- NOTE | 2016-10-19 13:19 | CP.PCM.PCO ---
Assessment/Plan - Assessment/Plan Assessment (Free Text): Pt stable, no diarrhea overnight, one soft BM this am. Pt cleared by Dr. Gibbs for d/c home. Per Dr. Guzman, pt to continue with Keflex 500mg BID x 10days at home. Rx given. Per Dr. Romero, pt to follow up as outpatient. Pt to also f/u with Dr. Healy as outpatient. Spoke with Dr. Cabrales regarding pt' s antiplatelet medication. He discussed with pt and patient prefers to talk with her private waste treatment operator, Dr. Frederick Sullivan before resuming the Edoxaban. Per pt she has an appointment with her waste treatment operator this Tuesday. Per pt, she thinks her labia were swollen, pt examined, no swelling or redness noted. Pt confirms that the swelling probably went down. Heart sounds S1S2, lungs clear, abdomen soft, nontender, pt denies further hematuria. Pt states she feels ok and ready to go home. Pt to f/u with consults and Dr. Gibbs upon discharge. Pt has all meds at home. - Problems Patient Problems: Problem List (Active/Current) Problem Status Onset Code A-fib Acute I48.91 Acute kidney injury Acute N17.9 Pyelonephritis Acute N12
--- NOTE | 2016-10-19 20:03 | CP.PCM.PN ---
Subjective - Date & Time of Evaluation Date of Evaluation: 10/19/16 Time of Evaluation: 22:22 - Subjective Subjective: Above noted Objective - Vital Signs/Intake and Output Vital Signs (last 24 hours): Temp Pulse Resp BP Pulse Ox 98.6 F 82 20 148/99 H 95 10/19/16 08:19 10/19/16 09:07 10/19/16 08:19 10/19/16 08:19 10/19/16 08:19 - Labs Labs: 10/19/16 11:35 10/19/16 11:35 PT 13.9 Seconds (9.8-13.1) H 10/13/16 04:50 INR 1.3 (0.9-1.2) H 10/13/16 04:50 APTT 28.0 Seconds (25.6-37.1) D 10/13/16 04:50 - Respiratory Exam Respiratory Exam: NORMAL BREATHING PATTERN - Cardiovascular Exam Cardiovascular Exam: REGULAR RHYTHM - GI/Abdominal Exam GI & Abdominal Exam: Normal Bowel Sounds Assessment and Plan - Assessment and Plan (Free Text) Assessment: Hematuria/ Pyelonephritis Urology Cystoscopy and Uteroscopy path?? Pt needs repeat procedures ID ABX Cultures no growth Hypotension etiol? Sepsis vs Narcotics Heart dx Afib Hx of recent GI bleed and current Hematuria was taking Savaysa Hematology consult appreciated Cardiology f/u as outpt CKD LEX resolved Nephrology Chronic pain Anxiety Pain management consult appreciated meds adjusted
== END 2016-10-19 14:24 | disposition home or self-care (01) | DRG 872 ==
LOC: H.ER 15:08 → OBSVTOIN 16:01 → H.EROBSV 16:01 → H.ERHOLD 19:59 → H.MEDSURG1 21:54 → H.ICU/CCU 23:48 → H.MEDSURG1 10-14 12:21
PROVIDERS: ADMIT Family Medicine Geriatric Medicine; ATTEND Family Medicine Geriatric Medicine
PROC: 0TJ98ZZ Inspection of Ureter, Via Natural or Artificial Opening Endoscopic (ICD-10-PCS; 2016-10-13)
PROC: BT1FZZZ Fluoroscopy of Left Kidney, Ureter and Bladder (ICD-10-PCS; principal; 2016-10-13 07:45)
DX: A41.9 Sepsis, unspecified organism (principal); N17.9 Acute kidney failure, unspecified; N10 Acute pyelonephritis; D68.32 Hemorrhagic disorder due to extrinsic circulating anticoagulants; N39.0 Urinary tract infection, site not specified; I13.0 Hypertensive heart and chronic kidney disease with heart failure and stage 1 through stage 4 chronic kidney disease, or unspecified chronic kidney disease; N18.3 Chronic kidney disease, stage 3 (moderate); R31.0 Gross hematuria; T45.515A Adverse effect of anticoagulants, initial encounter; E11.22 Type 2 diabetes mellitus with diabetic chronic kidney disease; I50.9 Heart failure, unspecified; I48.2 Chronic atrial fibrillation; I95.2 Hypotension due to drugs; T40.2X5A Adverse effect of other opioids, initial encounter; D50.9 Iron deficiency anemia, unspecified; G89.29 Other chronic pain; F41.9 Anxiety disorder, unspecified; M06.9 Rheumatoid arthritis, unspecified; H40.9 Unspecified glaucoma; Z79.01 Long term (current) use of anticoagulants; Z79.891 Long term (current) use of opiate analgesic; Z85.41 Personal history of malignant neoplasm of cervix uteri; Z87.442 Personal history of urinary calculi; Z90.710 Acquired absence of both cervix and uterus; Y92.9 Unspecified place or not applicable

== ENCOUNTER 2017-07-28 08:32 | Emergency (ER) | payer MEDICARE ==
--- NOTE | 2017-07-28 09:57 | ED PDOC ---
HPI: General Adult Time Seen by Provider: 07/28/17 09:00 Chief Complaint (Nursing): Abnormal Skin Integrity Chief Complaint (Provider): Abnormal Skin Integrity History Per: Patient History/Exam Limitations: no limitations Onset/Duration Of Symptoms: Days (x 3) Current Symptoms Are (Timing): Still Present Additional Complaint(s): 71 year old female with a history of CHF, atrial fibrillation, arthritis, gall and kidney stones presents to the ED complaining of irritation and pain in the area around her colostomy bag. She describes it as "raw" around her stoma and the area under the bag. Patient had surgery done at [facility] in October of 2016 due to diverticulitis. Denies fever and vomiting. PMD: Dr. Gibbs Surgeon: Dr. Fabrizio Rodriguez Past Medical History Reviewed: Historical Data, Nursing Documentation, Vital Signs Vital Signs: Last Vital Signs Temp 99.0 F 07/28/17 12:00 Pulse 93 H 07/28/17 12:00 Resp 19 07/28/17 12:00 BP 142/71 07/28/17 12:00 Pulse Ox 99 07/28/17 12:00 - Medical History PMH: Anemia, Anxiety, Arthritis, Atrial Fibrillation, Back Problems (chronic), CHF, HTN, Kidney Stones, Chronic Kidney Disease, Rheumatoid Arthritis Denies: Diabetes, Hepatitis, HIV, Seizures, Sexually Transmitted Disease - Surgical History Surgical History: Cholecystectomy, Hernia Repair, - Family History Family History: States: Diabetes, Hypertension - Social History Current smoker - smoking cessation education provided: No Alcohol: None Drugs: Denies - Home Medications Home Medications: Ambulatory Orders Medication Instructions Recorded oxyCODONE [oxyCODONE Immediate 30 mg PO Q8H PRN 03/21/14 Release Tab] Alprazolam [Xanax] 0.5 mg PO Q8H 04/16/16 Calcium Carbonate/Vitamin D3 1 tab PO BID 04/16/16 [Oysco D Tablet] Citalopram Hydrobromide [Celexa] 10 mg PO DAILY 04/16/16 Edoxaban Tosylate [Savaysa] 60 mg PO DAILY 04/16/16 Latanoprost [Xalatan] 1 drop EACHEYE HS 04/16/16 Metoprolol Tartrate [Lopressor] 100 mg PO Q12H 04/16/16 Morphine Sulfate [Morphine Sulfate 30 mg PO Q12H 04/16/16 ER] Sulindac 200 mg PO BID 04/16/16 Timolol 0.5% Ophth [Timoptic 0.5% 1 drop EACHEYE BID 04/16/16 Ophth Soln] Torsemide [Demadex] 20 mg PO BID 04/16/16 tiZANidine [Zanaflex] 4 mg PO BID 04/16/16 Cephalexin [Keflex] 500 mg PO TID #30 capsule 10/19/16 Lactobacillus Acidophilus [Bacid 1 cap PO BID #30 cap 10/19/16 Acidophilus] Cephalexin [Keflex] 500 mg PO BID #14 capsule 07/28/17 - Allergies Allergies/Adverse Reactions: Allergies Allergy/AdvReac Type Severity Reaction Status Date / Time No Known Allergies Allergy Verified 07/28/17 08:43 Review of Systems ROS Statement: Except As Marked, All Systems Reviewed And Found Negative Gastrointestinal: Positive for: Other (colostomy bag in place; irritation, itchiness and pain in the area) Physical Exam - Reviewed Nursing Documentation Reviewed: Yes Vital Signs Reviewed: Yes - Physical Exam Appears: Positive for: Well, Non-toxic, No Acute Distress Head Exam: Positive for: ATRAUMATIC, NORMAL INSPECTION Skin: Positive for: Normal Color, Warm, DRY Cardiovascular/Chest: Positive for: Regular Rate, Rhythm Respiratory: Positive for: CNT, Normal Breath Sounds Gastrointestinal/Abdominal: Positive for: Soft, Other (colostomy bag full with brown stool on llq of abdomen. prior surgical scars present. when colostomy bag changed by RIKKI preston, i observed the erythmea surrounding the ostomy. appears irrritated skin, but no skin breakdown, no cellulitis. ) Extremity: Positive for: Normal ROM Neurologic/Psych: Positive for: Alert, Oriented - ECG O2 Sat by Pulse Oximetry: 98 (RA) Pulse Ox Interpretation: Normal Medical Decision Making Medical Decision Making: Time: 10:31 --Wound care nurse is going to evaluate patient's stoma in the ER. wound care nurse RIKKI Gerard evaluated the stoma and placed ointment and stoma powder and replaced the bag. pt has appt tuesday with surgeoin. given prophylactic antibiotics to prevent infection around area. pt agreeable to plan Scribe Attestation: Documented by Sara Yadav, acting as a scribe for Ines Todd MD Provider Scribe Attestation: All medical record entries made by the Scribe were at my direction and personally dictated by me. I have reviewed the chart and agree that the record accurately reflects my personal performance of the history, physical exam, medical decision making, and the department course for this patient. I have also personally directed, reviewed, and agree with the discharge instructions and disposition. Disposition - Clinical Impression Clinical Impression: Encounter for wound care - Patient ED Disposition Is Patient to be Admitted: No Counseled Patient/Family Regarding: Studies Performed, Diagnosis, Need For Followup - Disposition Disposition: Routine/Home Disposition Time: 12:00 Condition: IMPROVED Additional Instructions: follow up with your surgeon with your scheduled appt on Tuesday return to the ED with any worsening or concerning symptoms Prescriptions: Cephalexin [Keflex] 500 mg PO BID #14 capsule Instructions: Wound Care (DC) Forms: [employer] ([place]ian), [facility] ED School/Work Excuse
[2017-07-28 12:01] VITALS: BP 142/71; PULSE 93; RESP 19; TEMP 99
[2017-07-28 13:49] VITALS: O2SAT 98
== END 2017-07-28 11:53 | disposition home or self-care (01) ==
LOC: H.ER 08:32
DX: Z93.3 Colostomy status (principal); I13.0 Hypertensive heart and chronic kidney disease with heart failure and stage 1 through stage 4 chronic kidney disease, or unspecified chronic kidney disease; Z79.01 Long term (current) use of anticoagulants